=== PATIENT | male | born 1945 | race Caucasian/White ===

== ENCOUNTER 2017-06-06 13:15 | Emergency (ER) | payer MEDICARE, SELFPAY ==
[2017-06-06 13:16] VITALS: BP 118/57; PULSE 81; RESP 79; TEMP 36.4; O2SAT 97; BMI 27.5
--- NOTE | 2017-06-06 13:23 | EKG12_ITS ---
Test Reason : SYNCOPE Blood Pressure : / mmHG Vent. Rate : 076 BPM Atrial Rate : 076 BPM P-R Int : 168 ms QRS Dur : 088 ms QT Int : 372 ms P-R-T Axes : 011 -03 037 degrees QTc Int : 418 ms Normal sinus rhythm Normal ECG Confirmed by GUERO STOREY, SHANTEL ([id number]), image editor [employer] TR[employer]P ([id number] on 06/13/2017 8:36:14 AM Referred By: KRISTY Confirmed By:SHANTEL JACK MD
[2017-06-06 13:30] VITALS: O2SAT 95
[2017-06-06 13:41] LABS: Absolute Lymphocyte Count 0.82 X10^3/ul (0.83-4.51); Absolute Neutrophil Count 8.3 X10^3/uL (2.0-7.7); Basophil# 0.01 X10^3/uL; Basophil% 0.1 % (0-1); Eosinophil# 0.16 X10^3/uL; Eosinophils% 1.6 % (0-5); Hematocrit 40.4 % (40-54); Lymphocyte # 0.82 X10^3/ul (4.0); Lymphocyte % 8.2 % (19-41); Mean Corp Hgb Conc 34.7 g/gl (32-36); Mean Corpuscular Hgb 30.9 pg (27.0-32.0); Mean Corpuscular Volume 89.2 fL (80-94); Monocyte# 0.72 X10^3/uL; Monocyte% 7.2 % (0-10); Neutrophil # 8.25 X10^3/uL (2.7-7.7); Neutrophil % 82.8 % (47-70); Platelet Count 301 K/mm3 (150-450); RBC Distribution Width CV 12.6 % (11.6-14.6); RBC Distribution Width SD 40.5 fl (35.1-43.9); Red Blood Count 4.53 M/mm3 (4.6-6.2)
[2017-06-06 13:42] LABS: POSITIVE COUNT NO; POSITIVE DIFFERENTIAL NO; POSITIVE MORPHOLOGY NO
[2017-06-06 13:59] LABS: Anion Gap 8 (5-15); BUN 25 mg/dL (7-18); BUN/Creat Ratio 21.6 RATIO (10-20); Calcium,Total 8.9 mg/dL (8.5-10.1); Chloride 104 mmol/L (98-107); Creatinine, Serum 1.16 mg/dL (0.70-1.30); EST Glomerular Filtration Rate 66 mL/min (>60); Est Glom Filt Rate - Afr Amer 79 mL/min (>60); Estimated Creatinine Clearance 58.56 ml/min; Glucose 209 mg/dL (70-110); Potassium 4.7 mmol/L (3.5-5.1); Sodium Level 139 mmol/L (136-145)
[2017-06-06 14:15] VITALS: BP 123/66; PULSE 75; RESP 16; O2SAT 98
[2017-06-06 14:52] LABS: Bedside Glucose 196 mg/dL (70-110)
[2017-06-06 15:00] VITALS: BP 119/56; PULSE 93; RESP 18; O2SAT 100
--- NOTE | 2017-06-06 15:28 | ED.VISSUMM ---
- ER Visit Summary Date of Service: 06/06/17 Chief Complaint: Syncopal episode ?2 History of Present Illness: The patient is a 71 M who states he awoke this morning with mild gastric discomfort, which is not abnormal for him. This was associate with nausea. He ate breakfast and felt better. He then went shopping with his . He has several episodes where he felt nauseous and may be slightly warm. He had no other complaints. He apparently ate and felt better. was driving when he had 2 separate syncopal episodes. The single episodes were preceded by a sensation of nauseousness, warmth and noted pallor and he was diaphoretic. He states his vision became tunneled and then black. There was no seizure activity. There is no incontinence of urine or stool. He denies any chest pain or shortness of breath. He denies hematemesis, melena hematochezia in the past week. He denies any leg pain, swelling discoloration. Past history of type 2 diabetes, hypertension and coronary disease. He has 2 stents that were placed by Dr. Mac. Physical Examination: Vital signs are unremarkable. Head is atraumatic normocephalic. Pupils are equal round reactive. Extraocular muscles are intact. TMs are pearly white with landmarks noted. Nares patent with no drainage. Posterior pharynx without erythema or exudate. Uvula is midline. There is no dysphonia or dysphasia. Trachea is midline. There is no stridor with auscultation of the neck. Heart is regular without murmur, gallop or rub. S1 and S2 are normal. Lungs are clear to auscultation with good movement of air bilaterally. Abdomen is soft nontender with no palpable subtle mass or abdominal bruit. Bowel sounds are present normal. There is no asymmetry, swelling, discoloration, leg vein distention, palpable cords or tenderness along the distribution of the deep venous system. Patient is alert and oriented ?3. Motor is 5 over 5. Sensory is intact. DTRs are symmetric with no clonus or Babinski sign. Cranial 2 through 12 are intact. Cerebellar testing is normal. Test Results: Is normal with a rate of 76. CBC is unremarkable. BMP is marked for glucose of 209. Emergency Department Course and Treatment: Placed on a monitor to evaluate for dysrhythmia. During his 2.25 hours today he has had no dysrhythmia or ectopy. CBC was obtained to assess for anemia. BMP to assess for an elevated BUN/creatinine ratio which may signify a GI bleed. Treatment Plan: Follow-up with Dr. Copeland his PCP Disposition: Discharge to home Impression: Vasovagal syncopal episode History coronary disease Hyperglycemia type II diabetic History of hypertension This note was generated with [employer] dictation software. It may contain incorrect words, spelling, and punctuation that were not noted in review of the chart prior to signing ED Disposition - Plan for ED Patient: Disposition: Home or Assisted Living Chief Complaint: Syncope Instructions: ED Syncope Vasovagal Referrals: Christos Copeland MD [Primary Care Provider] - 3-5 Days
--- NOTE | 2017-06-06 15:34 | ED.DCSUM_ITS ---
- ER Visit Summary Date of Service: 06/06/17 Chief Complaint: Syncopal episode ?2 History of Present Illness: The patient is a 71 M who states he awoke this morning with mild gastric discomfort, which is not abnormal for him. This was associate with nausea. He ate breakfast and felt better. He then went shopping with his . He has several episodes where he felt nauseous and may be slightly warm. He had no other complaints. He apparently ate and felt better. was driving when he had 2 separate syncopal episodes. The single episodes were preceded by a sensation of nauseousness, warmth and noted pallor and he was diaphoretic. He states his vision became tunneled and then black. There was no seizure activity. There is no incontinence of urine or stool. He denies any chest pain or shortness of breath. He denies hematemesis , melena hematochezia in the past week. He denies any leg pain, swelling discoloration. Past history of type 2 diabetes, hypertension and coronary disease. He has 2 stents that were placed by Dr. Mac. Physical Examination: Vital signs are unremarkable. Head is atraumatic normocephalic. Pupils are equal round reactive. Extraocular muscles are intact. TMs are pearly white with landmarks noted. Nares patent with no drainage. Posterior pharynx without erythema or exudate. Uvula is midline. There is no dysphonia or dysphasia. Trachea is midline. There is no stridor with auscultation of the neck. Heart is regular without murmur, gallop or rub. S1 and S2 are normal. Lungs are clear to auscultation with good movement of air bilaterally. Abdomen is soft nontender with no palpable subtle mass or abdominal bruit. Bowel sounds are present normal. There is no asymmetry, swelling, discoloration, leg vein distention, palpable cords or tenderness along the distribution of the deep venous system. Patient is alert and oriented ?3. Motor is 5 over 5. Sensory is intact. DTRs are symmetric with no clonus or Babinski sign. Cranial 2 through 12 are intact. Cerebellar testing is normal. Test Results: Is normal with a rate of 76. CBC is unremarkable. BMP is marked for glucose of 209. Emergency Department Course and Treatment: Placed on a monitor to evaluate for dysrhythmia. During his 2.25 hours today he has had no dysrhythmia or ectopy. CBC was obtained to assess for anemia. BMP to assess for an elevated BUN/ creatinine ratio which may signify a GI bleed. Treatment Plan: Follow-up with Dr. Copeland his PCP Disposition: Discharge to home Impression: Vasovagal syncopal episode History coronary disease Hyperglycemia type II diabetic History of hypertension This note was generated with [employer] dictation software. It may contain incorrect words, spelling, and punctuation that were not noted in review of the chart prior to signing ED Disposition - Plan for ED Patient: Disposition: Home or Assisted Living Chief Complaint: Syncope Instructions: ED Syncope Vasovagal Referrals: Christos Copeland MD [Primary Care Provider] - 3-5 Days
[2017-06-06 15:42] VITALS: BP 132/64; PULSE 75; RESP 14; O2SAT 97
== END 2017-06-06 15:50 | disposition home or self-care (01) ==
PROVIDERS: Emergency Provider Emergency Medicine; Family Provider Family Medicine; PCP Family Medicine
DX: R55 Syncope and collapse (principal); I25.10 Atherosclerotic heart disease of native coronary artery without angina pectoris; E11.65 Type 2 diabetes mellitus with hyperglycemia; I10 Essential (primary) hypertension; K21.9 Gastro-esophageal reflux disease without esophagitis; Z79.82 Long term (current) use of aspirin; Z95.5 Presence of coronary angioplasty implant and graft; Z79.84 Long term (current) use of oral hypoglycemic drugs; Z79.899 Other long term (current) drug therapy
CPT/HCPCS: 80048; 82962; 84484; 85025; 93005; 99284; A4216

== ENCOUNTER → 2017-09-06 12:04 | Outpatient (CLI) | payer MEDICARE, SELFPAY ==
[2017-09-06 13:00] LABS: Hemoglobin A1c 8.8 % (4.2-6.3)
[2017-09-06 13:22] LABS: ALB/GLOB Ratio 1.3 RATIO (0.9-2.4); AST(SGOT) 25 U/L (15-37); Alanine Aminotransfer ALT/SGPT 27 U/L (16-61); Albumin, Serum 4.1 g/dL (3.2-5.0); Alkaline Phosphatase 27 U/L (45-117); Anion Gap 5 (5-15); BUN 21 mg/dL (7-18); BUN/Creat Ratio 21.5 RATIO (10-20); Calcium,Total 9.5 mg/dL (8.5-10.1); Chloride 105 mmol/L (98-107); Creatinine, Serum 0.98 mg/dL (0.70-1.30); EST Glomerular Filtration Rate 80 mL/min (>60); Est Glom Filt Rate - Afr Amer 97 mL/min (>60); Globulin 3.2 g/dL (2.2-4.2); Glucose 128 mg/dL (74-106); Potassium 4.8 mmol/L (3.5-5.1); Protein, Total 7.3 g/dL (6.4-8.2); Sodium Level 138 mmol/L (136-145)
== END ==
PROVIDERS: Family Provider Family Medicine; PCP Family Medicine; Visit Provider Family Medicine
DX: I10 Essential (primary) hypertension (principal); E11.9 Type 2 diabetes mellitus without complications
CPT/HCPCS: 36415; 80053; 83036

== ENCOUNTER 2017-10-20 10:00 | Outpatient (RCR) | payer MEDICARE, SELFPAY ==
--- NOTE | 2017-09-15 12:25 | HP.PTEVAL ---
Patient's Visit Information TULIO CABRERA is a 71 year old M referred to Physical Therapy by Christos Copeland DO with a diagnosis of SCIATICA. Date of Evaluation: 09/15/17 Physical Therapist: Ester Harrington Visit Plan Frequency: 2-3x /Week Duration: 4-6 Weeks Plan: POSTURE CORRECTION/STRENGTHENING, INSTRUCTION IN APPROPRIATE BODY MECHANICS AND ACTIVITY MODIFICATIONS. DLS STARTING WITH A NEUTRAL SPINE PROGRESSING ROM TOLERATED. JAMIR LE ROM, STRETCHING AND STRENGTHENING. HEP INSTRUCTION. - Subjective Subjective: Diagnosis: SCIATICA. 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 Disability: NO. Present symptoms: RIGHT BUTTOCK, HIP, THIGH, LEG AND FOOT PAIN, NUMBNESS AND TINGLING. THE NUMBNESS IS IN HIS FOOT. Present since: APR 2017. Pain Scale: WORST 9/10, LEAST 1/10. Currently: 09/14. Commenced as a result of: NO APPARENT REASON. Symptoms at onset: RIGHT THIGH IN APRIL BUT ABOUT A WEEK AGO WALKING TO NEIGHBOR GOT A WEAKNESS IN HIS RIGHT LEG. RESTED IN RECLINER THEN WORSE WHEN GOT UP. HASN'T LET UP IN RIGHT LE SINCE. Worse: SITTING AND LYING DOWN. Better: PAIN PILLS, TREADMILL. Disturbed sleep: YES. Previous history/Previous treatment: PATIENT REPORTS HE HAD THIS LAST YEAR TOO. TREATED IT WITH LV GARCIA - EVENTUALLY RESOLVED. HISTORY OF CHIROPRACTIC TREATMENTS FOR LOW BACK ABOUT 10 YEARS AGO. SELF TREATS SPINE WITH INVERSION TABLE BUT NOT HELPING THIS EPISODE. INCREASED RIGHT KNEE PAIN AFTER TRYING ONE LEG TRACTION AND STRENGTHENING ON INVERSION TABLE RECENTLY. Coughing/sneezing/straining: YES. Gait: LIMPING ON RIGHT LE BUT IT HELPS TO WALK. Difficulty initiating urinatin: YES - MILD. Accidents: NO. Unexplained weight loss: NO. Imaging: CAT SCAN WITHIN LAST SIX MONTHS FOR STOMACH. NO IMAGING OF LOW BACK OR RIGHT LE. PMH: NIDDM, HTN, HIGH CHOLESTEROL, 2 HEART STENTS 2006. LEFT ANKLE PROBLEMS - WEARS BRACE - CROCHET BEADER PROBLEM. 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 2006 - HISTORY OF RIGHT UE SX'S SIMILAR TO THIS TREATED WITH TRACTION AFTER MAXED OUT ON PAIN PILLS. ALMOST HAD SURGERY. RIGHT UE SX'S REOCCUR SOMETIMES AND HE LOST SOME OF THE FUNCTION IN RIGHT UE. - Objective Sitting Posture/Standing Posture: POOR. SLOUCH IN SITTING AND SWAY BACK IN STANDING. Lordosis: REDUCED. Lateral shift: NO. Relevant shift: N/A. Active Correction of posture: NE. Other Observations: INDEP GAIT INTO PT WITHOUT ANY ASSISTIVE DEVICES AND LIMP ON LEFT (NOT RIGHT) LE AT THIS TIME. PATIENT REPORTS HE LIMPS ON THE RIGHT LE WHEN HIS BACK FLARES UP. Motor deficit: JAMIR LE'S 5/5 WITH MMT'ING EXCEPT RIGHT HIP 4-/5 AND LEFT HIP 4/5. Sensory deficit: NO. FEET NOT THOROUGHLY TESTED. ROM deficit: JAMIR LE TIGHT HS'S AND GASTROC SOLEUS COMPLEX'S. Reflexes: UNABLE TO ELICIT. Dural Signs: POSITIVE JAMIR LE'S RIGHT > LEFT. Lumbar mvmt loss: flex - MOD *. ext - TYREE. R SG - TYREE. L SG - TYREE. RIGHT LBP WITH FLEX TESTING. OTHER MOTIONS ARE VERY TIGHT BUT NOT PAINFUL WITH TESTING. Core strength: POOR. Palpation: NO ACUTE PAIN WITH PALPATION OF LUMBAR, SACRAL, BUTTOCK OR HIP REGIONS. - Goals Goal 1:: DECREASE C/O BACK AND R LE SX'S. Goal Time Frame: 4-6 Weeks Goal 2:: IMPROVE SITTING, LYING BENDING, LIFTING, STANDING, WALKING, ADL AND SLEEP FUNCTION Goal Time Frame: 4-6 Weeks Goal 3:: INSTRUCT IN PROPHYLAXIS Goal Time Frame: 4-6 Weeks - Rehabilitation Potential Rehabilitation Potential: Fair - Anticipated Interventions Patient/Client Instruction: Educate patient on: Condition, Plan of Care, Risk Factors, Benefits of Fitness Program For the Purpose of:: To improve self management Therapeutic Exercise to Include: Strength training, Body mechanics, Postural training, Flexibilty training, Dynamic Lumbar Stabilization For the Purpose of:: To decrease pain, To decrease swelling/inflammation, To improve muscle performance and motor function, To increase tolerance to activity/condition/position, To improve ability of physical actions for home/community/work/leisure Cryotherapy (ice pack, ice massage): Yes Thermo therapy (hot pack): Yes Ultrasound (thermal/non thermal): Yes For the Purpose of:: To decrease pain, To decrease swelling/inflammation, To increase ROM Thank you for the opportunity to evaluate your patient. For Medicare and Medicare HMO plans, please review the plan of care and approve it. It will need to be FAXED BACK to us at [phone] for Medicare purposes. Please let me know if there are questions or concerns regarding this plan of care. Physician Signature: Date:
--- NOTE | 2017-10-20 15:33 | HP.PTDCSUM_ITS ---
HP - PT D/C Summary It has been my pleasure to treat TULIO CABRERA under orders from Christos Copeland DO, for the diagnosis of SCIATICA for a total of 7 visit(s). Discharge Date: Please see the following information for a summary of their discharge status. - Subjective Subjective: STARTED NEW PAIN PILLS YESTERDAY AND THEY ARE HELPING. THEY WERE PRESCRIBED BY DR. COPELAND. PATIENT REPORTS HIS PAIN AND UP AND DOWN. PATIENT REPORTS HE IS CONTINUING THE EX'S BUT HE ISN'T SURE THEY ARE HELPING. STATES HE COULD NOT BEND OVER TO TIE HIS SHOE THIS MORNING AND HE HAD TO USE A VICE EXTRACTOR TENDER RAW STOCK TO PUT HIS SOCK ON. PATIENT REPORTS DR. ANGEL OFFICE IS IN THE PROCESS OF SCHEDULING AN MRI FOR HIM. PATIENT REPORTS HE WOULD PREFER TO KNOW WHAT THE MRI SHOWS AND WHAT HE IS DEALING WITH BEFORE DOING MORE PT. PATIENT REPORTS SOMETIMES HE FEELS HE IS GETTING BETTER AND SOMETIMES IT FEELS JUST BAD BEFORE STARTING PT. PATIENT REPORTS HE THINKS THE US MIGHT HAVE BEEN HELPING. - Pain R hip Pain Intensity (Out of 10): 2 R GROIN Pain Intensity (Out of 10): 0 R THIGH Pain Intensity (Out of 10): 2 TOP OF RIGHT FOOT Pain Intensity (Out of 10): 2 - Overall Improvement % Improvement: 50 - Objective Objective/Function: PATIENTS REPORTS OF PAIN HAVE BEEN UP AND DOWN. MRI APPARENTLY IS PENDING. THERE ARE NO SIGNIFICANT CHANGES WITH TESTING TODAY COMPARED TO INITIAL EVAL BUT I ALSO DID A RICKY TEST AND IT WAS POSITIVE WITH RIGHT ANTERIOR HIP PAIN. UPON EXAM TODAY: PATIENT DEMO'S INDEP TRANSFER SIT TO STAND WITHOUT UE ASSIST. INDEP GAIT INTO PT WITHOUT AD OR LIMP NOTED. Motor deficit: JAMIR LE'S 5/5 WITH MMT'ING EXCEPT RIGHT HIP 4-/5 AND LEFT HIP 4/5. ROM deficit: JAMIR LE TIGHT HS'S AND GASTROC SOLEUS COMPLEX'S. Lumbar mvmt loss : flex - MOD *. ext - TYREE. R SG - TYREE. L SG - TYREE. RIGHT LBP WITH FLEX TESTING. OTHER MOTIONS ARE VERY TIGHT BUT NOT PAINFUL WITH TESTING. Core strength: POOR. Palpation: NO ACUTE PAIN WITH PALPATION OF LUMBAR, SACRAL, BUTTOCK OR HIP REGIONS. LUMBAR OSWESTRY HAS IMPROVED FROM 28 TO 25. - Goals Goal 1:: DECREASE C/O BACK AND R LE SX'S. Goal Progress: Not Progressing Goal 2:: IMPROVE SITTING, LYING BENDING, LIFTING, STANDING, WALKING, ADL AND SLEEP FUNCTION Goal Progress: Not Progressing Goal 3:: INSTRUCT IN PROPHYLAXIS Goal Progress: Not Progressing - Plan Plan: D/C DUE TO PENDING MRI AND PATIENT WANTING TO GET RESULTS BEFORE CONTINUING PT. - D/C Information If there are questions or concerns regarding this patient's physical therapy, please feel free to call me at [phone]. Thank you for the referral of this patient. Sincerely, Ester Napier
== END 2017-10-20 19:00 | disposition home or self-care (01) ==
LOC: PT 10:00
PROVIDERS: Family Provider Family Medicine; PCP Family Medicine; Visit Provider Family Medicine
DX: M54.30 Sciatica, unspecified side (principal)
CPT/HCPCS: 97035; 97110; 97113; 97162; 97164; 97530

== ENCOUNTER → 2017-11-01 16:43 | Outpatient (CLI) | payer MEDICARE, SELFPAY ==
--- NOTE | 2017-11-01 16:46 | MRI_ITS ---
STUDY: MRI LUMBAR SPINE WITHOUT CONTRAST REASON FOR EXAM: Male, 72 years old. Low back pain and right hip radiculopathy TECHNIQUE: Standardized fat and water weighted pulse sequences were obtained in the sagittal and axial planes. COMPARISON: None FINDINGS: T12-L1: Normal endplates. Normal disc height, hydration and morphology. Normal bilateral facet joints. Normal central canal and bilateral lateral recesses. Normal bilateral intervertebral neural foramina. Normal lumbar lordosis. There is no substantial scoliosis. Normal conus medullaris that terminates at the T12-L1 level. L1-2: Bulging annulus and bilateral facet hypertrophy without compressive sequelae. L2-3: Normal endplates. Normal disc height, hydration and morphology. Normal bilateral facet joints. Normal central canal and bilateral lateral recesses. Normal bilateral intervertebral neural foramina. L3-4: Bulging annulus and bilateral facet hypertrophy with moderate right lateral recess stenosis and moderate left and mild right foraminal stenoses. L4-5: Bulging annulus and bilateral facet and ligamentum flavum hypertrophy with mild bilateral lateral recess stenoses and moderate bilateral foraminal stenoses. L5-S1: Bulging annulus and bilateral facet hypertrophy with mild left foraminal stenosis. Normal visualized sacral ala. Normal visualized paraspinous soft tissue structures. Bilateral renal cysts. MRI/Spine Lumbar (Routine) IMPRESSION: Multilevel degenerative disc and facet disease as described. No evidence of randi nerve root impingement. Electronically Signed: Richard Presley MD at 5:18 EDT Tel , Service support ,
== END ==
PROVIDERS: Family Provider Family Medicine; PCP Family Medicine; Visit Provider Family Medicine
DX: M54.16 Radiculopathy, lumbar region (principal); M25.552 Pain in left hip
CPT/HCPCS: 72148

== ENCOUNTER → 2017-11-07 07:13 | Outpatient (CLI) | payer SELFPAY ==
--- NOTE | 2017-11-07 07:27 | MRI_ITS ---
STUDY: MRI RIGHT HIP REASON FOR EXAM: Male, 72 years old. Radiating right hip pain TECHNIQUE: Standardized fat and water weighted pulse sequences were obtained in all 3 orthogonal planes. COMPARISON: None. FINDINGS: There is moderate articular narrowing of the hip joint, with greater than 50% loss of the hyaline cartilage. Normal acetabulum. Normal labrum. Normal femoral head. Normal femoral neck and intratrochanteric region. Normal gluteus minimus, medius and iliopsoas tendons and distal insertions. There is no trochanteric, iliopsoas or iliopectineal bursitis. Normal superior and inferior pubic rami. Normal pubic symphysis. Normal ischial tuberosity. Normal origin of the hamstring tendons. Normal visualized iliac wing, sacroiliac joint, and sacral ala. There is prostatic enlargement with impingement upon the inferior bladder and subtle thickening of the inferior bladder wall. Bilateral hydroceles are noted within the scrotum. MRI/Lower Ext Joint Only (Routine) IMPRESSION: Moderate age consistent right hip arthrosis without evidence of fracture, or AVN. No abnormal signal noted within the visualized pelvis Prostate enlargement impinging upon the inferior bladder with subsequent mild thickening of the inferior bladder wall Bilateral hydroceles Electronically Signed: Hunter Mujica MD at 9:14 EDT , Service support ,
== END ==
PROVIDERS: Family Provider Family Medicine; PCP Family Medicine; Visit Provider Family Medicine
DX: M25.552 Pain in left hip (principal)
CPT/HCPCS: 73721

== ENCOUNTER → 2017-12-12 10:07 | Outpatient (CLI) | payer MEDICARE, SELFPAY ==
--- NOTE | 2017-12-12 10:09 | RAD_ITS ---
STUDY: X-RAY - PELVIS AND RIGHT HIP REASON FOR EXAM: Right hip pain, no specific injury. TECHNIQUE: Radiological exam, hip, unilateral, with pelvis when performed; 2 or 3 views. COMPARISON: None. FINDINGS: There is mild vascular calcification. There is enthesopathy of the right iliac wing. Normal right superior and inferior pubic rami. Normal right ischial tuberosity. There is mild right hip arthrosis with a small marginal osteophyte of the right femoral head and mild joint space narrowing at the superior medial aspect of the articulation. There is a small cam lesion on the frog-leg view. There are ossifications adjacent to the greater trochanter, likely from enthesopathy. There is also enthesopathy of the lesser trochanter. 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 Enthesopathy. Electronically Signed: Apolinar Mendoza MD at 7:53 EDT Tel , Service support ,
[2017-12-12 12:55] LABS: PSA,Total- Diagnostic 2.22 ng/mL (0.0-4.0)
== END ==
PROVIDERS: Nurse Practitioner Family; Family Provider Family Medicine; PCP Family Medicine; Visit Provider Orthopaedic Surgery
DX: M16.11 Unilateral primary osteoarthritis, right hip (principal); N40.0 Benign prostatic hyperplasia without lower urinary tract symptoms
CPT/HCPCS: 36415; 73502; 84153

== ENCOUNTER → 2018-01-05 12:55 | Outpatient (CLI) | payer MEDICARE, SELFPAY ==
[2018-01-05 14:17] LABS: Hemoglobin A1c 8.8 % (4.2-6.3)
== END ==
PROVIDERS: Family Provider Family Medicine; PCP Family Medicine; Visit Provider Family Medicine
DX: E11.9 Type 2 diabetes mellitus without complications (principal)
CPT/HCPCS: 36415; 83036

== ENCOUNTER 2018-03-04 14:40 | Observation (INO) | payer MEDICARE, SELFPAY ==
[2018-03-04] VITALS (18 sets, daily range): BP systolic 176–243; BP diastolic 85–113; PULSE 66–105; RESP 15–20; TEMP 36.7–37.1; O2SAT 93–98; BMI 29.5; BMI 27.4; BMI 27.5
[2018-03-04 15:06] LABS: Bedside Glucose 262 mg/dL (70-110)
--- NOTE | 2018-03-04 15:18 | EKG12_ITS ---
Test Reason : NEURO Blood Pressure : / mmHG Vent. Rate : 085 BPM Atrial Rate : 085 BPM P-R Int : 174 ms QRS Dur : 090 ms QT Int : 344 ms P-R-T Axes : 038 -12 038 degrees QTc Int : 409 ms Normal sinus rhythm Normal ECG Confirmed by ABE STOREY, KYLE ([id number]), state editor [employer] TR[employer]P ([id number]) on 03/06/2018 10:27:47 AM Referred By: MYRA Confirmed By:KYLE FISH MD
--- NOTE | 2018-03-04 15:18 | CT_ITS ---
STUDY: CT BRAIN WITHOUT CONTRAST REASON FOR EXAM: Male, 72 years old. Altered mental status. RADIATION DOSAGE (If Supplied By Facility): CTDIvol = ( 44.99 ) mGy, DLP = ( 779.24 ) mGycm TECHNIQUE: Transaxial CT imaging of the brain was performed without administration of intravenous contrast material. Individualized dose optimization techniques were used for this CT. COMPARISON: None. FINDINGS: Normal soft tissue structures. Normal calvarium. There is moderate cerebral atrophy with widening of the extra-axial spaces and ventricular dilatation. Normal white matter tracts of the cerebral hemispheres. Normal basal ganglia and thalami. Normal brainstem. Normal cerebellum. There is no intracranial hemorrhage. There are no findings of an acute ischemic infarction. Normal visualized paranasal sinuses. CT/Brain/Head without Contrast IMPRESSION: No acute process. Involutional changes. Electronically Signed: Komal Del Rosario MD at 16:35 EDT Tel , Service support ,
[2018-03-04 15:31] LABS: Absolute Lymphocyte Count 2.25 X10^3/ul (0.83-4.51); Absolute Neutrophil Count 4.7 X10^3/uL (2.0-7.7); Basophil# 0.04 X10^3/uL; Basophil% 0.5 % (0-1); Eosinophil# 0.24 X10^3/uL; Hematocrit 36.4 % (40-54); Hemoglobin 12.6 g/dl (13.0-16.5); Lymphocyte # 2.25 X10^3/ul (4.0); Lymphocyte % 28.2 % (19-41); Mean Corp Hgb Conc 34.6 g/gl (32-36); Mean Corpuscular Hgb 31.2 pg (27.0-32.0); Mean Corpuscular Volume 90.1 fL (80-94); Mean Platelet Vol. 9.6 fl (6.2-12.0); Monocyte# 0.71 X10^3/uL; Monocyte% 8.9 % (0-10); Neutrophil # 4.71 X10^3/uL (2.7-7.7); Neutrophil % 58.9 % (47-70); Platelet Count 357 K/mm3 (150-450); RBC Distribution Width CV 12.4 % (11.6-14.6); RBC Distribution Width SD 40.2 fl (35.1-43.9); Red Blood Count 4.04 M/mm3 (4.6-6.2)
[2018-03-04 15:35] LABS: POSITIVE COUNT NO; POSITIVE DIFFERENTIAL NO; POSITIVE MORPHOLOGY NO
--- NOTE | 2018-03-04 15:35 | RAD_ITS ---
STUDY: X-RAY CHEST REASON FOR EXAM: Male, 72 years old. forgetfulness and altered LOC that started this morning TECHNIQUE: Single frontal view of the chest. COMPARISON: None. FINDINGS: Chronic appearing increased interstitial lung markings. There is no demonstrated pleural abnormality. Normal heart size. Normal mediastinum and isidro. Normal visualized pulmonary arteries. There is atherosclerotic calcification of the aortic arch with tortuosity. There are diffuse degenerative changes of the visualized thoracic spine. There is degenerative osteoarthritis of the bilateral shoulders. There is no demonstrated abnormality of the visualized soft tissue structures of the upper abdomen. RAD/Chest 1 View IMPRESSION: There are no acute findings. Electronically Signed: Keenan Padgett MD at 16:21 EDT , Service support ,
[2018-03-04 15:37] LABS: Prothrombin Time (Protime)PT. 13.1 SECONDS (11.7-14.9)
--- NOTE | 2018-03-04 15:57 | ED.DCSUM_ITS ---
- ER Visit Summary Date of Service: 03/04/18 Chief Complaint: Speech difficulty History of Present Illness: The patient is a 72 M presenting for evaluation secondary to speech difficulty. Patient has an underlying history of diabetes hypertension and high cholesterol. Patient reports that today he had a sudden onset of a feeling of word finding difficulty. 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 This lasted for short amount of time, he states that after he was done giving a sermon he could not even really remember what he had said. The symptoms resolved and then he had a repeat episode again later in the day talking to a neighbor. He states that he does feel that potentially he was speaking nonsensically. He denies any new visual changes numbness or weakness. He reports that he has chronic numbness in his right arm secondary to a pinched nerve in his neck. He is never had any prior similar episodes in the past. Physical Examination: Vital signs are within normal limits, patient is afebrile. General: Patient is well-nourished well-developed and in no acute distress. Head: Normocephalic, atraumatic Eyes: Pupils equal round and reactive bilaterally, extra occular motion intact bialterally ENT: Moist mucous membranes Neck: Supple, no lymphadenopathy, no JVD, no meningismus CVS: Heart regular rate and rhythm, 2 out of 6 systolic murmur noted, rubs or gallops, radial pulses 2+ bilaterally Resp: Respirations nondistressed, lung sounds clear bilaterally Abdomen: Soft, nontender, nondistended, no palpable masses, normal bowel sounds Back: Nontender Extremities: Nontender, atraumatic, active full range of motion, no peripheral edema Skin: warm, no rashes, no petechia Neuro: Alert and oriented x 4, CN 2-12 intact, no lateralizing neurological defecits, NIH stroke scale was 1 for some subjective numbness in the right arm which is old Psyc: Normal affect Test Results: Sinus rhythm of [address] segments normal T waves no evidence of acute ischemia or arrhythmia. CBC unremarkable, chemistry shows hyperglycemia 282, troponin negative. CT brain shows chronic involutional changes chest x-ray is negative per radiology. Emergency Department Course and Treatment: Patient presented for evaluation secondary to a word finding difficulty. I interpret this as a element of expressive aphasia. Patient does have multiple risk factors for stroke so stroke workup was initiated. He does not have an NIH that would be indicative of need for stroke team or TPA as a stroke team was not activated. Workup was negative as noted above. Patient's blood pressure did continue to creep up while he was in the emergency department this was addressed by a dose of labetalol. I believe he requires admission I discussed this with the hospitalist. Disposition: Admission Impression: 1. TIA 2. Hypertension This note was generated with [employer] dictation software. It may contain incorrect words, spelling, and punctuation that were not noted in review of the chart prior to signing ED Disposition - Plan for ED Patient: Chief Complaint: Neuro S/Sx Referrals: Christos Copeland DO [Primary Care Provider] -
[2018-03-04 16:01] LABS: Anion Gap 9 (5-15); BUN 29 mg/dL (7-18); BUN/Creat Ratio 25.9 RATIO (10-20); Chloride 102 mmol/L (98-107); Creatinine, Serum 1.12 mg/dL (0.70-1.30); EST Glomerular Filtration Rate 68 mL/min (>60); Est Glom Filt Rate - Afr Amer 82 mL/min (>60); Estimated Creatinine Clearance 59.75 ml/min; Glucose 282 mg/dL (74-106); Potassium 4.7 mmol/L (3.5-5.1); Sodium Level 135 mmol/L (136-145)
--- NOTE | 2018-03-04 17:07 | HP.PCM_ITS ---
Problem List (1) Expressive aphasia Status: Acute History of Present Illness Date of Admission: 03/04/18 Chief Complaint: expressive aphasia The patient is a 72 year old M with a PMH of HTN, hyperlipidemia and CAD s'/p stents. Was admitted to the ED on 03/04/2018 with a complaint of 2 episodes of expressive aphasia. He was at [employer] today, and at around noon, noticed that he had temporary difficulty in remembering what he was saying and went blank. He was subsequently able to remember what he was saying and get a speech back. He has not had such episodes before. Patient states his been having problems with the control of his blood pressure was due to follow-up with his PCP and this incident happened. He denied any headache, blurred vision, weakness in any extremity but admitted to mild tingling in the right arm. He denied any chest pain, dizziness, lightheadedness, abdominal pain, diarrhea or vomiting. In the ED, blood pressure was 243/103, but vitals were otherwise within normal limits. He was saturating 96% on 2 L of oxygen. Chemistry showed sodium of 135 and CBC was unremarkable. Chest x-ray showed no acute cardia pulmonary process and CT of the head showed no acute process and only involutional changes. He has been admitted to manage for hypertensive emergency and TIA. [] Past Medical History Past Medical History (Chronic Problems): Chronic Problems (Last Reviewed 12/27/17 @ 09:29 by Rosie Mack) Osteoarthritis of right hip (Chronic) History of esophageal stricture (Chronic) Arthritis (Chronic) High cholesterol (Chronic) Diabetes (Chronic) Hypertension (Chronic) Medical History: Medical History (Last Reviewed 12/27/17 @ 09:29 by Rosie Mack) Arthritis (Chronic) M19.90 High cholesterol (Chronic) E78.00 Diabetes (Chronic) E11.9 Hypertension (Chronic) I10 Allergies tetanus and diphtheria toxoids Adverse Reaction (Verified 03/04/18 14:49) Upset Stomach Home Medications: Ambulatory Orders Medication Instructions Recorded Aspirin [Aspirin EC] 81 mg PO DAILY 06/06/17 Glucosamine/D3/Boswellia Janice 1 ea PO BID 06/06/17 [Glucosamine Daily Complex Tab] Magnesium Oxide [Magnesium] 250 mg PO DAILY 06/06/17 Multivitamin [Multiple Vitamins] 1 tab DAILY 06/06/17 Omeprazole 20 mg PO DAILY 06/06/17 glipizide 5 mg tablet 5 mg PO BID #180 tab 09/06/17 metformin 1,000 mg tablet 1,000 mg PO BID #180 tab 09/06/17 olmesartan 40 mg tablet 40 mg PO QDAY #90 tab 09/06/17 metoprolol tartrate 50 mg tablet 50 mg PO BID tab 11/10/17 simvastatin 20 mg tablet 20 mg PO QPM #90 tab 02/19/18 traMADol [Ultram] 50 mg PO Q4H PRN 03/04/18 Surgical History: Surgical History (Last Reviewed 12/27/17 @ 09:29 by Rosie Mack) History of heart artery stent Z95.5 2007 History of hernia repair Z98.890, Z87.19 1966 Surgical History: - - stents x 2 Psychiatric History: No pertinent psych hx Lives: With Family Smoking Status: Never smoker Alcohol: None - *Family History Maternal Family History: Family History (Last Reviewed 12/27/17 @ 09:29 by Rosie Mack) Mother Hypertension Father Myocardial infarction Pancreatic cancer Brother Pancreatic cancer Brother Liver cancer Brother Non-Hodgkin lymphoma Review of Systems Constitutional: Denies: Chills, Fever, Malaise, Weakness, Weight Change Eyes: Denies: Blurred vision, Double vision, Vision Change HEENT: Denies: Head Aches, Sinus Congestion, Sinus Drainage Cardiovascular: Denies: Chest Pain, Chest Tightness, Edema, Heaviness, Light Headedness, Orthopnea, Palpitations, Paroxysmal Noc. Dyspnea, Syncope Respiratory: Denies: Cough, Shortness of Breath, Shortness of breath at rest, Shortness of breath upon exertion, Sputum production Gastrointestinal: Denies: Abdominal Pain, Nausea, Vomiting Genitourinary: Denies: Dysuria Musculoskeletal: Denies: Joint Pain, Joint Tenderness Skin: Denies: Rash, Wounds Neurological: Reports: Change in Speech, Confusion, Tingling. Denies: Balance problems, Blurred vision, Double vision, Slurred speech, Difficulty swallowing, Focal weakness, Headaches, Incoordination, Numbness, Tremor, Seizures Psychiatric: Denies: Anxiety, Depression, Homicidal Ideations, Suicidal Ideations VTE Information - Inpt Only VTE Present on Admission: No VTE Pharm Prophylaxis ordered?: Yes Patient Problems: Active and Suspected Problems (Last Reviewed 12/27/17 @ 09:29 by Rosie Mack) Expressive aphasia (Acute) - Physical Exam General: Alert, Oriented x3, Cooperative, No apparent distress HEENT: Atraumatic, PERRLA, EOMI, Normocephalic Oral: Moist Mucosa Neck: Supple, No JVD, Negative Carotid Bruits Lungs: Clear to auscultation, Normal air movement, No rhonchi, No wheeze, No rales Cardiovascular: Regular rate, Regular Rhythm, Normal S1, Normal S2, No murmurs Abdomen: Bowel Sounds Present, Soft, Non Tender, Non-Distended, No Hepato- splenomegaly Extremities: No clubbing, No cyanosis, No edema, Capillary Refill Less than 3 Seconds Skin: No rashes, No breakdown Musculoskeletal: No Tenderness to Palpation of Joints or Extremities Lymphatic: No Cervical, Supraclavicular, or Inguinal Adenopathy Neurological: Cranial nerves II-XII grossly intact, Neuro grossly intact, Motor Exam 5/5 strength throughout, - - NIHSS- 0 Psych/Mental Status: Normal Affect, Appropriate, Alert and oriented to time, place, person, mood and affect Vital Signs Temp Pulse Resp BP Pulse Ox 98.8 F 80 17 193/113 H 96 03/04/18 14:40 03/04/18 17:00 03/04/18 17:00 03/04/18 17:00 03/04/18 17:00 Oxygen Flow Rate (L/min) 4 Oxygen Delivery Method Nasal Cannula Weight: 205 lb 7.533 oz Body Mass Index (BMI) 29.5 Finger Stick Blood Glucose 262 Laboratory Tests Past 24 Hrs 03/04/18 03/04/18 03/04/18 15:20 15:20 15:20 WBC 8.0 RBC 4.04 L Hgb 12.6 L Hct 36.4 L MCV 90.1 MCH 31.2 MCHC 34.6 RDW 12.4 RDW Differential 40.2 Plt Count 357 MPV 9.6 Immature Gran % (Auto) 0.500 Neut % (Auto) 58.9 Lymph % (Auto) 28.2 [place] % (Auto) 8.9 Eos % (Auto) 3.0 Baso % (Auto) 0.5 Absolute Neuts (auto) 4.7 Absolute Lymphs (auto) 2.25 Total Counted Not Reportable PT 13.1 INR 1.0 APTT 28.0 Sodium 135 L Potassium 4.7 Chloride 102 Carbon Dioxide 24.0 Anion Gap 9 BUN 29 H Creatinine 1.12 Estim Creat Clear Calc 59.75 Est GFR (MDRD) Af Amer 82 Est GFR (MDRD) Non-Af 68 BUN/Creatinine Ratio 25.9 H Glucose 282 H Calcium 9.0 Troponin I < 0.015 POC Glucose 03/04/18 14:43 POC Glucose 262 H Diagnostic Data Brain CT 03/04/18 15:18 IMPRESSION: No acute process. Involutional changes. Electronically Signed: Komal Dle Rosario MD at 16:35 EDT Tel , Service support , Chest X-Ray 03/04/18 15:35 IMPRESSION: There are no acute findings. Electronically Signed: Keenan Padgett MD at 16:21 EDT , Service support , Assessment/Plan All Active Problems (Last Reviewed 12/27/17 @ 09:29 by Rosie Mack) Expressive aphasia (Acute) 72 y/o male presenting with a complaint expressive aphasia and temporary loss of memory 1. TIA * NIHSS score is 0. Has not had such incidents before in the past. * has risk factors of CAD, HTN and diabetes mellitus. * CT head was negative for any intracranial process * CXR showed no acute cardiopulmonary process * admit to PCU with telemetry * passed dysphagia screen in ED * Brain MRI tomorrow * 2D echo * neurology consult. * On aspirin. We will continue * 2. Hypertensive emergency * BP was in 240s systolic on admission. received one dose of labetalol * says he has been compliant with his meds, but BP has been difficult to control * will give one dose of PO clonidine 0.3mg once * On olmesartan and metoprolol. Increase metoprolol to 100 mg twice daily from 50 by gram twice daily * adjust meds as needed 3. Hyperlipidemia: on statin 4. Diabetes mellitus: on glipizide and metformin. Accuchecks ACHS. ISS 5. Chronic pain due to arthritis: on tramadol DVT prophylaxis: heparin CODE STATUS: Full code. * Patient and son counseled extensively about different types of CODE STATUS including full code, DNR CCA and DNR CCA. Patient elects to be full code. However he wouldnt want to be kept on life prolonging treatment for long. Patient counselled to pass on his wishes to his healthcare POA so they would know what he wants. Total face to face time -17 mins. Code Visit OBSV E&M: 93526 Initial observation care L3 Procedures: 15579 Advncd Care Plan 30 Min
[2018-03-04] MEDS: Labetalol 20 MG/4 ML Vial IV (17:12)
--- NOTE | 2018-03-04 17:36 | ED.RN ---
DR. FROST INFORMED OF PT BP POST LABETALOL. BP 188/90. NO NEW ORDERS AT THIS TIME. WILL CONTINUE TO MONITOR PT BP AND HR. PT ASYMPTOMATIC.
[2018-03-04] MEDS: Insulin Lispro 100 UNIT/ML INSULN.PEN SQ ×2 (18:34→21:53)
[2018-03-04 18:36] LABS: Bedside Glucose 179 mg/dL (70-110)
[2018-03-04] MEDS: Clonidine HCl 0.1 MG, Clonidine HCl 0.2 MG 0.3 MG PO (21:54)
[2018-03-04] MEDS: Metoprolol Tartrate 100 MG Tablet PO (21:55)
[2018-03-04] MEDS: Atorvastatin Calcium 10 MG Tablet PO (21:56)
[2018-03-04 22:05] LABS: Bedside Glucose 287 mg/dL (70-110)
[2018-03-05] VITALS (7 sets, daily range): BP systolic 128–133; BP diastolic 67–77; PULSE 63–71; RESP 16–18; TEMP 36.4–36.7; O2SAT 94–95; BMI 27.4
[2018-03-05] MEDS: Sodium Chloride 0.65% 1 SPRAY SPRAY.BTL 2 SPRAY NASAL (02:43)
[2018-03-05 05:55] LABS: Absolute Lymphocyte Count 1.59 X10^3/ul (0.83-4.51); Absolute Neutrophil Count 3.9 X10^3/uL (2.0-7.7); Basophil# 0.03 X10^3/uL; Basophil% 0.5 % (0-1); Eosinophil# 0.34 X10^3/uL; Eosinophils% 5.3 % (0-5); Hematocrit 32.3 % (40-54); Hemoglobin 11.1 g/dl (13.0-16.5); Lymphocyte # 1.59 X10^3/ul (4.0); Lymphocyte % 24.7 % (19-41); Mean Corp Hgb Conc 34.4 g/gl (32-36); Mean Corpuscular Hgb 31.3 pg (27.0-32.0); Mean Platelet Vol. 9.1 fl (6.2-12.0); Monocyte# 0.59 X10^3/uL; Monocyte% 9.1 % (0-10); Neutrophil # 3.88 X10^3/uL (2.7-7.7); Neutrophil % 60.1 % (47-70); Platelet Count 305 K/mm3 (150-450); RBC Distribution Width CV 12.5 % (11.6-14.6); RBC Distribution Width SD 40.1 fl (35.1-43.9); Red Blood Count 3.55 M/mm3 (4.6-6.2); White Blood Count 6.5 K/mm3 (4.4-11.0)
[2018-03-05 06:00] LABS: Anion Gap 9 (5-15); BUN 26 mg/dL (7-18); BUN/Creat Ratio 26.1 RATIO (10-20); Calcium,Total 8.6 mg/dL (8.5-10.1); Chloride 105 mmol/L (98-107); EST Glomerular Filtration Rate 78 mL/min (>60); Est Glom Filt Rate - Afr Amer 94 mL/min (>60); Estimated Creatinine Clearance 66.92 ml/min; Glucose 158 mg/dL (74-106); Potassium 4.2 mmol/L (3.5-5.1); Sodium Level 139 mmol/L (136-145)
[2018-03-05 06:31] LABS: POSITIVE COUNT NO; POSITIVE DIFFERENTIAL NO; POSITIVE MORPHOLOGY NO
[2018-03-05 07:00] LABS: Bedside Glucose 162 mg/dL (70-110)
--- NOTE | 2018-03-05 08:00 | MRI_ITS ---
STUDY: MRI BRAIN WITHOUT CONTRAST REASON FOR EXAM: Male, 72 years old. APHASIA -- 2 episodes of aphasia 03/04/18, no paralysis or vision, no hx of stroke. TECHNIQUE: Standardized multiplanar fat and water weighted pulse sequences were obtained. # of Images: 286 COMPARISON: 03/04/2018 CT of the head FINDINGS: There is mild cerebral atrophy with widening of the extra-axial spaces and ventricular dilatation. There are a limited number of small white matter hyperintensities, distributed throughout the deep white matter tracts of the cerebral hemispheres, consistent with mild chronic white matter ischemic changes. There is minimal right parietal cortical encephalomalacia and gliosis, suggestive of prior infarct. Normal bilateral basal ganglia. Normal thalami. There is no extra-axial fluid accumulation. Normal flow voids within the major intracranial circulation suggesting patency by spin echo criteria. Normal sella turcica, pituitary gland, infundibular stalk, optic chiasm and hypothalamus. Normal tectal plate and pineal gland. Normal midbrain, shona and medulla. Normal cerebellum. Normal basal cisterns. Normal bilateral temporal bones. Normal bilateral internal auditory canals. MRI/Brain without Contrast IMPRESSION: No acute intracranial abnormality. Chronic right parietal small infarct. Electronically Signed: Sudhir Wan MD at 13:54 EDT Tel , Service support ,
--- NOTE | 2018-03-05 08:00 | ECHOD_ITS ---
[id number] ECHO^ECHOD^Echo Complete [id number] TAG_START Cardiovascular Services Echocardiogram [facility] [place] [id number] Ordering Physician: Meena Freed TAG_ENDED TAG_START Name: TULIO CABRERA Study Date: 03/05/2018 08:14 AM BP: 128/70 mmHg Patient Location: [facility]^[id number]^1 BSA: 2.0 m2 : 1945 Gender: Male Height: 70 in Age: 72 yrs Weight: 189 lb History: HLD, DM, HTN TAG_ENDED Reason For Study: Emboli Procedure This was a 2D Doppler, Color Flow transthoracic echocardiogram. Exam performed portable in patient room. Left Ventricle Mild concentric left ventricular hypertrophy. The estimated ejection fraction is 65 %. Stage 1 diastolic dysfunction. No regional wall motion abnormalities noted. TAG_START I Segments Size 1-2 small X - Cannot 1 - Normal 2 - 3 - Akinetic 4 - Dyskinetic3-5 moderate Interpret Hypokinetic 6-14 large 5 - Aneurysmal 15-16 diffuse TAG_ENDED Right Ventricle Normal size and thickness. Normal systolic function. Atria The left atrium is mildly enlarged. Normal right atrium. Normal atrial septum. Bubble contrast study negative for right to left interatrial shunt. Mitral Valve Mild diffuse mitral valve thickening. Trivial mitral valve insufficiency. Tricuspid Valve Normal tricuspid valve. Unable to estimate RV systolic pressure due to inadequate jet, pulmonary artery pressure probably normal. Aortic Valve Trisinus/trileaflet aortic valve. Mild diffuse aortic valve thickening. Pulmonic Valve Normal pulmonic valve. Trivial pulmonic valve insufficiency. Great Vessels Normal aortic root. Normal arch. Normal inferior vena cava. Inferior vena cava collapse with sniff. Pericardium/Pleural No pericardial effusion. Medication Performed a rapid injection of agitated mix of 9 cc saline and 1cc air to assess for atrial septal defect. MMode/2D Measurements & Calculations LVIDd: 4.7 cm IVSd: 1.6 cm Ao root diam: 3.7 cm LVIDs: 3.0 cm LVPWd: 1.3 cm RVDd: 3.6 cm FS: 35.6 % LAV(MOD-bp): 70.2 ml LVAd ap4: 35.5 cm2 SV(MOD-sp4): 71.0 ml LAV(MOD-bp) Indexed: 34.5 ml/m2 EDV(MOD-sp4): 119.9 ml LAV(MOD-sp2): 68.1 ml EDV(sp4-el): 123.5 ml LAV(MOD-sp4): 66.5 ml LVAs ap4: 20.6 cm2 ESV(MOD-sp4): 48.9 ml ESV(sp4-el): 48.9 ml EF(MOD-sp4): 59.2 % EF(sp4-el): 60.4 % SV(sp4-el): 74.7 ml LA A4 area: 21.5 cm2 LA dimension(2D): 4.0 cm RA A4 area: 15.2 cm2 Doppler Measurements & Calculations MV E max gigi: 52.5 cm/sec Lat Peak E' Gigi: 7.0 cm/sec Med Peak E' Gigi: 5.8 cm/sec MV A max gigi: 77.5 cm/sec E/E' lat: 7.5 E/E' med: 9.0 MV E/A: 0.68 Ao V2 max: 122.9 cm/sec LV V1 max: 92.4 cm/sec PA V2 max: 148.1 cm/sec Ao max P.0 mmHg LV V1 max P.4 mmHg Ao V2 mean: 93.1 cm/sec LV V1 mean P.0 mmHg Ao mean P.7 mmHg LV V1 mean: 68.1 cm/sec Ao V2 VTI: 30.3 cm LV V1 VTI: 23.8 cm PI end-d gigi: 100.3 cm/sec Interpretation Summary Mild concentric left ventricular hypertrophy. The estimated ejection fraction is 65 %. Stage 1 diastolic dysfunction. Trivial mitral valve insufficiency. Bubble contrast study negative for right to left interatrial shunt. Unable to estimate RV systolic pressure due to inadequate jet, pulmonary artery pressure probably normal. There is no comparison study available. TAG_START TAG_ENDED Ordering Physician: Meena Freed Referring Physician: Christos Copeland Performed By: Latha Nur RDCS, RVT
--- NOTE | 2018-03-05 08:00 | MRI_ITS ---
STUDY: MRA NECK WITH AND WITHOUT CONTRAST REASON FOR EXAM: Male, 72 years old. APHASIA -- 2 episodes of aphasia 03/04/18, no paralysis or vision, no hx of stroke. TECHNIQUE: 3-D [id number] (TOF) imaging was performed in an 1.5 T MRI scanner. 9 ml of Gadavist was administered for the contrast enhanced images. COMPARISON: None. FINDINGS: RIGHT CAROTID ARTERIES: Normal right common carotid artery (CCA). There is mild atherosclerotic plaque formation with minimal narrowing of the right carotid bulb. There is mild atherosclerotic plaque formation of the origin of the right internal carotid artery with less than 50% cross sectional diameter stenosis. Normal visualized cervical portion of the right internal carotid artery. Normal origin of the right external carotid artery (ECA). LEFT CAROTID ARTERIES: Normal left common carotid artery (CCA). There is mild atherosclerotic plaque formation with minimal narrowing of the left carotid bulb. There is mild atherosclerotic plaque formation of the origin of the left internal carotid artery with less than 50% cross sectional diameter stenosis. Normal visualized cervical portion of the left internal carotid artery. Normal origin of the left external carotid artery (ECA). VERTEBRAL ARTERIES: There is antegrade flow within the bilateral vertebral arteries with a small right vertebral artery, and a dominant left vertebral artery. MRI/MRA Neck WITH and W/O Contrast IMPRESSION: Atherosclerotic plaque with less than 50% stenosis at the bifurcations. Electronically Signed: Sudhir Wan MD at 15:08 EDT Tel , Service support ,
--- NOTE | 2018-03-05 08:00 | MRI_ITS ---
STUDY: MRA OF THE HEAD WITHOUT CONTRAST REASON FOR EXAM: Male, 72 years old. APHASIA -- 2 episodes of aphasia 03/04/18, no paralysis or vision, no hx of stroke. TECHNIQUE: 3-D cjok-uz-npaixk (TOF) imaging was performed with MIPs. The study was performed unenhanced. COMPARISON: None. FINDINGS: Normal bilateral petrous carotid arteries. Normal right cavernous carotid artery with a normal supraclinoid bifurcation. Normal left cavernous carotid artery with a normal supraclinoid bifurcation. Normal right A1 segments of the anterior cerebral artery. Normal left A1 segments of the anterior cerebral artery. Normal intact anterior communicating artery (ACOM). Normal bilateral A2 segments of the anterior cerebral arteries. Normal right M1 and M2 segments of the middle cerebral arteries, with a normal M1 bifurcation. Normal left M1 and M2 segments of the middle cerebral arteries, with a normal M1 bifurcation. Normal right posterior communicating artery (PCOM). Normal left posterior communicating artery (PCOM). Normal bilateral vertebral arteries. Normal basilar artery with a normal basilar bifurcation. The visualized bilateral superior cerebellar (SCA) arteries are normal. Normal bilateral P1, P2 and visualized P3 segments of the posterior cerebral arteries. There is no demonstrated aneurysm of the [place]. There is no major vessel occlusion or hemodynamically significant stenosis. There is no demonstrated abnormality of the visualized brain. MRI/MRA Head ONLY without Contrast IMPRESSION: Normal MRA of the head Electronically Signed: Sudhir Wan MD at 13:55 EDT Tel , Service support ,
[2018-03-05] MEDS: Aspirin E.C. 81 MG Tablet PO (08:10)
[2018-03-05] MEDS: Multivitamins,Therapeutic Tablet 1 TABLET PO (08:10)
[2018-03-05] MEDS: glipiZIDE 5 MG Tablet PO (08:10)
[2018-03-05] MEDS: Insulin Lispro 100 UNIT/ML INSULN.PEN SQ ×2 (08:10→12:23)
[2018-03-05] MEDS: Pantoprazole Sodium 20 MG Tablet PO (09:53)
[2018-03-05] MEDS: Metoprolol Tartrate 100 MG Tablet PO (09:53)
[2018-03-05] MEDS: Losartan Potassium 100 MG Tablet PO (09:53)
[2018-03-05] MEDS: Enoxaparin 40 MG/0.4 ML Syringe SC (09:53)
[2018-03-05] MEDS: Magnesium Oxide 400 MG Tablet PO (09:59)
--- NOTE | 2018-03-05 11:54 | PCM.CONS.GEN ---
Reason for Consult Date of Consultation: 03/05/18 Reason for Consultation: CONFUSION History of Present Illness: The patient is a 72 year old M presented after two spells of confusion associated with high blood pressure which he attributes to poor sleep due to pain issues. reports friends/family did not notice any deficit. per admit h&p:The patient is a 72 year old M with a PMH of HTN, hyperlipidemia and CAD s'/p stents. Was admitted to the ED on 03/04/2018 with a complaint of 2 episodes of expressive aphasia. He was at [employer] today, and at around noon, noticed that he had temporary difficulty in remembering what he was saying and went blank. He was subsequently able to remember what he was saying and get a speech back. He has not had such episodes before. Patient states his been having problems with the control of his blood pressure was due to follow-up with his PCP and this incident happened. He denied any headache, blurred vision, weakness in any extremity but admitted to mild tingling in the right arm. He denied any chest pain, dizziness, lightheadedness, abdominal pain, diarrhea or vomiting. In the ED, blood pressure was 243/103, but vitals were otherwise within normal limits. He was saturating 96% on 2 L of oxygen. Chemistry showed sodium of 135 and CBC was unremarkable. Chest x-ray showed no acute cardia pulmonary process and CT of the head showed no acute process and only involutional changes. He has been admitted to manage for hypertensive emergency and TIA. Past Medical History Past Medical History (Chronic Problems): Chronic Problems (Last Reviewed 03/05/18 @ 11:56 by Manuel Botello MD) Osteoarthritis of right hip (Chronic) History of esophageal stricture (Chronic) Arthritis (Chronic) High cholesterol (Chronic) Diabetes (Chronic) Hypertension (Chronic) Medical History: Medical History (Last Reviewed 03/05/18 @ 11:56 by Manuel Botello MD) Arthritis (Chronic) M19.90 High cholesterol (Chronic) E78.00 Diabetes (Chronic) E11.9 Hypertension (Chronic) I10 Allergies tetanus and diphtheria toxoids Adverse Reaction (Verified 03/04/18 14:49) Upset Stomach Home Medications: Ambulatory Orders Medication Instructions Recorded Aspirin [Aspirin EC] 81 mg PO DAILY 06/06/17 Glucosamine/D3/Boswellia Janice 1 ea PO BID 06/06/17 [Glucosamine Daily Complex Tab] Magnesium Oxide [Magnesium] 250 mg PO DAILY 06/06/17 Multivitamin [Multiple Vitamins] 1 tab DAILY 06/06/17 Omeprazole 20 mg PO DAILY 06/06/17 glipizide 5 mg tablet 5 mg PO BID #180 tab 09/06/17 metformin 1,000 mg tablet 1,000 mg PO BID #180 tab 09/06/17 olmesartan 40 mg tablet 40 mg PO QDAY #90 tab 09/06/17 metoprolol tartrate 50 mg tablet 50 mg PO BID tab 11/10/17 simvastatin 20 mg tablet 20 mg PO QPM #90 tab 02/19/18 traMADol [Ultram] 50 mg PO Q4H PRN 03/04/18 Surgical History: Surgical History (Last Reviewed 03/05/18 @ 11:56 by Manuel Botello MD) History of heart artery stent Z95.5 2007 History of hernia repair Z98.890, Z87.19 1966 Surgical History: - - stents x 2 Psychiatric History: No pertinent psych hx Lives: With Family Smoking Status: Never smoker Tobacco Use: Non-smoker Alcohol: None - *Family History Maternal Family History: Family History (Last Reviewed 03/05/18 @ 11:56 by Manuel Botello MD) Mother Hypertension Father Myocardial infarction Pancreatic cancer Brother Pancreatic cancer Brother Liver cancer Brother Non-Hodgkin lymphoma Review of Systems Constitutional: Denies: Chills, Fever, Weight Change HEENT: Denies: Head Aches, Sinus Congestion, Sinus Drainage Cardiovascular: Denies: Chest Pain, Palpitations Respiratory: Denies: Cough, Shortness of breath at rest, Sputum production Gastrointestinal: Denies: Abdominal Pain, Nausea, Vomiting Genitourinary: Denies: Dysuria Musculoskeletal: Denies: Joint Pain, Joint Tenderness Skin: Denies: Rash, Wounds Neurological: Denies: Numbness, Tingling, Focal weakness Psychiatric: Denies: Anxiety, Depression, Homicidal Ideations, Suicidal Ideations Hematologic/ Lymphatic: Denies: Easy Bruising, Easy Bleeding Patient Problems: Active and Suspected Problems (Last Reviewed 03/05/18 @ 11:56 by Manuel Botello MD) Expressive aphasia (Acute) - Physical Exam General: Alert, Oriented x3, Cooperative HEENT: Atraumatic, PERRLA, EOMI, Normocephalic Neck: Supple, No JVD, Negative Carotid Bruits Lungs: Clear to auscultation, Normal air movement Cardiovascular: Regular rate, No murmurs Abdomen: Bowel Sounds Present, Soft, Non Tender Extremities: No edema, Capillary Refill Less than 3 Seconds Skin: No rashes, No breakdown Musculoskeletal: No Tenderness to Palpation of Joints or Extremities Neurological: Cranial nerves II-XII grossly intact Psych/Mental Status: Normal Affect, Appropriate Vital Signs Temp Pulse Resp BP Pulse Ox 36.4 C L 71 18 133/67 H 94 03/05/18 09:30 03/05/18 09:53 03/05/18 09:30 03/05/18 09:30 03/05/18 09:30 Oxygen Flow Rate (L/min) 2 Oxygen Delivery Method Room Air Weight: 86.818 kg Body Mass Index (BMI) 27.4 Finger Stick Blood Glucose 262 Laboratory Tests Past 24 Hrs 03/04/18 03/04/18 03/04/18 15:20 15:20 15:20 WBC 8.0 RBC 4.04 L Hgb 12.6 L Hct 36.4 L MCV 90.1 MCH 31.2 MCHC 34.6 RDW 12.4 RDW Differential 40.2 Plt Count 357 MPV 9.6 Immature Gran % (Auto) 0.500 Neut % (Auto) 58.9 Lymph % (Auto) 28.2 [place] % (Auto) 8.9 Eos % (Auto) 3.0 Baso % (Auto) 0.5 Absolute Neuts (auto) 4.7 Absolute Lymphs (auto) 2.25 Total Counted Not Reportable PT 13.1 INR 1.0 APTT 28.0 Sodium 135 L Potassium 4.7 Chloride 102 Carbon Dioxide 24.0 Anion Gap 9 BUN 29 H Creatinine 1.12 Estim Creat Clear Calc 59.75 Est GFR (MDRD) Af Amer 82 Est GFR (MDRD) Non-Af 68 BUN/Creatinine Ratio 25.9 H Glucose 282 H Calcium 9.0 Troponin I < 0.015 03/05/18 03/05/18 05:20 05:20 WBC 6.5 RBC 3.55 L Hgb 11.1 L Hct 32.3 L MCV 91.0 MCH 31.3 MCHC 34.4 RDW 12.5 RDW Differential 40.1 Plt Count 305 MPV 9.1 Immature Gran % (Auto) 0.300 Neut % (Auto) 60.1 Lymph % (Auto) 24.7 [place] % (Auto) 9.1 Eos % (Auto) 5.3 H Baso % (Auto) 0.5 Absolute Neuts (auto) 3.9 Absolute Lymphs (auto) 1.59 Total Counted Not Reportable PT INR APTT Sodium 139 Potassium 4.2 Chloride 105 Carbon Dioxide 25.0 Anion Gap 9 BUN 26 H Creatinine 1.00 Estim Creat Clear Calc 66.92 Est GFR (MDRD) Af Amer 94 Est GFR (MDRD) Non-Af 78 BUN/Creatinine Ratio 26.1 H Glucose 158 H Calcium 8.6 Troponin I POC Glucose 03/05/18 03/04/18 03/04/18 06:57 21:36 18:02 POC Glucose 162 H 287 H 179 H 03/04/18 14:43 POC Glucose 262 H Current Home Med List Medication Instructions Recorded Confirmed Type Aspirin [Aspirin EC] 81 mg PO DAILY 06/06/17 03/04/18 History Glucosamine/D3/Boswellia Janice 1 ea PO BID 06/06/17 03/04/18 History [Glucosamine Daily Complex Tab] Magnesium Oxide [Magnesium] 250 mg PO DAILY 06/06/17 03/04/18 History Multivitamin [Multiple Vitamins] 1 tab DAILY 06/06/17 03/04/18 History Omeprazole 20 mg PO DAILY 06/06/17 03/04/18 History glipizide 5 mg tablet 5 mg PO BID #180 tab 09/06/17 03/04/18 Rx metformin 1,000 mg tablet 1,000 mg PO BID #180 tab 09/06/17 03/04/18 Rx olmesartan 40 mg tablet 40 mg PO QDAY #90 tab 09/06/17 03/04/18 Rx metoprolol tartrate 50 mg tablet 50 mg PO BID tab 11/10/17 03/04/18 History simvastatin 20 mg tablet 20 mg PO QPM #90 tab 02/19/18 03/04/18 Rx traMADol [Ultram] 50 mg PO Q4H PRN 03/04/18 03/04/18 History Current Medications Generic Name Dose Route Start Last Admin Trade Name Freq PRN Reason Stop Dose Admin Aspirin 81 mg 03/05/18 08:00 03/05/18 08:10 Ecotrin PO 81 mg DAILY@0800 SHANTELL Administration Atorvastatin Calcium 10 mg 03/04/18 22:00 03/04/18 21:56 Lipitor PO 10 mg QHS SHANTELL Administration Dextrose 0 gm 03/04/18 17:50 D50w Syringe IV X1 PRN Hypoglycemia Protocol Enoxaparin Sodium 40 mg 03/05/18 10:00 03/05/18 09:53 Lovenox SC 40 mg DAILY@1000 [facility] Administration Glipizide 5 mg 03/05/18 08:00 03/05/18 08:10 Glucotrol PO 5 mg BIDCM [facility] Administration Glucagon 1 mg 03/04/18 17:50 IM .X1 PRN Hypoglycemia Insulin Human Lispro 0 unit 03/04/18 22:00 03/05/18 08:10 Humalog Kwikpen (Bkc) SQ 2 u ACHS [facility] Administration Protocol Losartan Potassium 100 mg 03/05/18 10:00 03/05/18 09:53 Cozaar PO 100 mg DAILY [facility] Administration Magnesium Hydroxide 30 ml 03/04/18 17:53 Milk Of Magnesia PO DAILY PRN PRN Constipation Magnesium Oxide 400 mg 03/05/18 10:00 03/05/18 09:59 Mag-Ox 400 PO 400 mg DAILY [facility] Administration Metformin HCl 1,000 mg 03/05/18 08:00 03/05/18 08:11 Glucophage PO Not Given BIDCM [facility] Metoprolol Tartrate 100 mg 03/04/18 22:00 03/05/18 09:53 Lopressor (Beta Clint) PO 100 mg BID [facility] Administration Multivitamins 1 tablet 03/05/18 08:00 03/05/18 08:10 Multivitamin PO 1 tablet DAILY@0800 [facility] Administration Pantoprazole Sodium 20 mg 03/05/18 10:00 03/05/18 09:53 Protonix PO 20 mg DAILY [facility] Administration Sodium Chloride 2 spray 03/05/18 01:56 03/05/18 02:43 [place] Nasal [place] NASAL 2 sprays TID PRN PRN Administration NASAL DRYNESS Tamsulosin HCl 0.4 mg 03/05/18 17:30 Flomax PO DAILY@1730 [facility] Tramadol HCl 50 mg 03/04/18 17:53 Ultram PO Q4H PRN PRN PAIN mri reviewed, no acute, no evidence of pres mra no stensosis Assessment/Plan All Active Problems (Last Reviewed 03/05/18 @ 11:56 by Manuel Botello MD) Expressive aphasia (Acute) confusion, resolved, likely encephalopathy due to a combination of hip pain and analgesics as well as sleep deprivation due to pain. neuro intact rec f/'u as outpt for optimizing rx of pain issues no evidence of primary neurologic injury
[2018-03-05 11:56] LABS: Bedside Glucose 306 mg/dL (70-110)
--- NOTE | 2018-03-05 11:58 | CON.PCM_ITS ---
Reason for Consult Date of Consultation: 03/05/18 Reason for Consultation: CONFUSION History of Present Illness: The patient is a 72 year old M presented after two spells of confusion associated with high blood pressure which he attributes to poor sleep due to pain issues. reports friends/family did not notice any deficit. per admit h&p:The patient is a 72 year old M with a PMH of HTN, hyperlipidemia and CAD s'/p stents. Was admitted to the ED on 03/04/2018 with a complaint of 2 episodes of expressive aphasia. He was at [employer] today, and at around noon, noticed that he had temporary difficulty in remembering what he was saying and went blank. He was subsequently able to remember what he was saying and get a speech back. He has not had such episodes before. Patient states his been having problems with the control of his blood pressure was due to follow-up with his PCP and this incident happened. He denied any headache, blurred vision, weakness in any extremity but admitted to mild tingling in the right arm. He denied any chest pain, dizziness, lightheadedness, abdominal pain, diarrhea or vomiting. In the ED, blood pressure was 243/103, but vitals were otherwise within normal limits. He was saturating 96% on 2 L of oxygen. Chemistry showed sodium of 135 and CBC was unremarkable. Chest x-ray showed no acute cardia pulmonary process and CT of the head showed no acute process and only involutional changes. He has been admitted to manage for hypertensive emergency and TIA. Past Medical History Past Medical History (Chronic Problems): Chronic Problems (Last Reviewed 03/05/18 @ 11:56 by Manuel Botello MD) Osteoarthritis of right hip (Chronic) History of esophageal stricture (Chronic) Arthritis (Chronic) High cholesterol (Chronic) Diabetes (Chronic) Hypertension (Chronic) Medical History: Medical History (Last Reviewed 03/05/18 @ 11:56 by Manuel Botello MD) Arthritis (Chronic) M19.90 High cholesterol (Chronic) E78.00 Diabetes (Chronic) E11.9 Hypertension (Chronic) I10 Allergies tetanus and diphtheria toxoids Adverse Reaction (Verified 03/04/18 14:49) Upset Stomach Home Medications: Ambulatory Orders Medication Instructions Recorded Aspirin [Aspirin EC] 81 mg PO DAILY 06/06/17 Glucosamine/D3/Boswellia Janice 1 ea PO BID 06/06/17 [Glucosamine Daily Complex Tab] Magnesium Oxide [Magnesium] 250 mg PO DAILY 06/06/17 Multivitamin [Multiple Vitamins] 1 tab DAILY 06/06/17 Omeprazole 20 mg PO DAILY 06/06/17 glipizide 5 mg tablet 5 mg PO BID #180 tab 09/06/17 metformin 1,000 mg tablet 1,000 mg PO BID #180 tab 09/06/17 olmesartan 40 mg tablet 40 mg PO QDAY #90 tab 09/06/17 metoprolol tartrate 50 mg tablet 50 mg PO BID tab 11/10/17 simvastatin 20 mg tablet 20 mg PO QPM #90 tab 02/19/18 traMADol [Ultram] 50 mg PO Q4H PRN 03/04/18 Surgical History: Surgical History (Last Reviewed 03/05/18 @ 11:56 by Manuel Botello MD) History of heart artery stent Z95.5 2007 History of hernia repair Z98.890, Z87.19 1966 Surgical History: - - stents x 2 Psychiatric History: No pertinent psych hx Lives: With Family Smoking Status: Never smoker Tobacco Use: Non-smoker Alcohol: None - *Family History Maternal Family History: Family History (Last Reviewed 03/05/18 @ 11:56 by Manuel Botello MD) Mother Hypertension Father Myocardial infarction Pancreatic cancer Brother Pancreatic cancer Brother Liver cancer Brother Non-Hodgkin lymphoma Review of Systems Constitutional: Denies: Chills, Fever, Weight Change HEENT: Denies: Head Aches, Sinus Congestion, Sinus Drainage Cardiovascular: Denies: Chest Pain, Palpitations Respiratory: Denies: Cough, Shortness of breath at rest, Sputum production Gastrointestinal: Denies: Abdominal Pain, Nausea, Vomiting Genitourinary: Denies: Dysuria Musculoskeletal: Denies: Joint Pain, Joint Tenderness Skin: Denies: Rash, Wounds Neurological: Denies: Numbness, Tingling, Focal weakness Psychiatric: Denies: Anxiety, Depression, Homicidal Ideations, Suicidal Ideations Hematologic/ Lymphatic: Denies: Easy Bruising, Easy Bleeding Patient Problems: Active and Suspected Problems (Last Reviewed 03/05/18 @ 11:56 by Manuel Botello MD) Expressive aphasia (Acute) - Physical Exam General: Alert, Oriented x3, Cooperative HEENT: Atraumatic, PERRLA, EOMI, Normocephalic Neck: Supple, No JVD, Negative Carotid Bruits Lungs: Clear to auscultation, Normal air movement Cardiovascular: Regular rate, No murmurs Abdomen: Bowel Sounds Present, Soft, Non Tender Extremities: No edema, Capillary Refill Less than 3 Seconds Skin: No rashes, No breakdown Musculoskeletal: No Tenderness to Palpation of Joints or Extremities Neurological: Cranial nerves II-XII grossly intact Psych/Mental Status: Normal Affect, Appropriate Vital Signs Temp Pulse Resp BP Pulse Ox 36.4 C L 71 18 133/67 H 94 03/05/18 09:30 03/05/18 09:53 03/05/18 09:30 03/05/18 09:30 03/05/18 09:30 Oxygen Flow Rate (L/min) 2 Oxygen Delivery Method Room Air Weight: 86.818 kg Body Mass Index (BMI) 27.4 Finger Stick Blood Glucose 262 Laboratory Tests Past 24 Hrs 03/04/18 03/04/18 03/04/18 15:20 15:20 15:20 WBC 8.0 RBC 4.04 L Hgb 12.6 L Hct 36.4 L MCV 90.1 MCH 31.2 MCHC 34.6 RDW 12.4 RDW Differential 40.2 Plt Count 357 MPV 9.6 Immature Gran % (Auto) 0.500 Neut % (Auto) 58.9 Lymph % (Auto) 28.2 [place] % (Auto) 8.9 Eos % (Auto) 3.0 Baso % (Auto) 0.5 Absolute Neuts (auto) 4.7 Absolute Lymphs (auto) 2.25 Total Counted Not Reportable PT 13.1 INR 1.0 APTT 28.0 Sodium 135 L Potassium 4.7 Chloride 102 Carbon Dioxide 24.0 Anion Gap 9 BUN 29 H Creatinine 1.12 Estim Creat Clear Calc 59.75 Est GFR (MDRD) Af Amer 82 Est GFR (MDRD) Non-Af 68 BUN/Creatinine Ratio 25.9 H Glucose 282 H Calcium 9.0 Troponin I < 0.015 03/05/18 03/05/18 05:20 05:20 WBC 6.5 RBC 3.55 L Hgb 11.1 L Hct 32.3 L MCV 91.0 MCH 31.3 MCHC 34.4 RDW 12.5 RDW Differential 40.1 Plt Count 305 MPV 9.1 Immature Gran % (Auto) 0.300 Neut % (Auto) 60.1 Lymph % (Auto) 24.7 [place] % (Auto) 9.1 Eos % (Auto) 5.3 H Baso % (Auto) 0.5 Absolute Neuts (auto) 3.9 Absolute Lymphs (auto) 1.59 Total Counted Not Reportable PT INR APTT Sodium 139 Potassium 4.2 Chloride 105 Carbon Dioxide 25.0 Anion Gap 9 BUN 26 H Creatinine 1.00 Estim Creat Clear Calc 66.92 Est GFR (MDRD) Af Amer 94 Est GFR (MDRD) Non-Af 78 BUN/Creatinine Ratio 26.1 H Glucose 158 H Calcium 8.6 Troponin I POC Glucose 03/05/18 03/04/18 03/04/18 06:57 21:36 18:02 POC Glucose 162 H 287 H 179 H 03/04/18 14:43 POC Glucose 262 H Current Home Med List Medication Instructions Recorded Confirmed Type Aspirin [Aspirin EC] 81 mg PO DAILY 06/06/17 03/04/18 History Glucosamine/D3/Boswellia Janice 1 ea PO BID 06/06/17 03/04/18 History [Glucosamine Daily Complex Tab] Magnesium Oxide [Magnesium] 250 mg PO DAILY 06/06/17 03/04/18 History Multivitamin [Multiple Vitamins] 1 tab DAILY 06/06/17 03/04/18 History Omeprazole 20 mg PO DAILY 06/06/17 03/04/18 History glipizide 5 mg tablet 5 mg PO BID #180 tab 09/06/17 03/04/18 Rx metformin 1,000 mg tablet 1,000 mg PO BID #180 tab 09/06/17 03/04/18 Rx olmesartan 40 mg tablet 40 mg PO QDAY #90 tab 09/06/17 03/04/18 Rx metoprolol tartrate 50 mg tablet 50 mg PO BID tab 11/10/17 03/04/18 History simvastatin 20 mg tablet 20 mg PO QPM #90 tab 02/19/18 03/04/18 Rx traMADol [Ultram] 50 mg PO Q4H PRN 03/04/18 03/04/18 History Current Medications Generic Name Dose Route Start Last Admin Trade Name Freq PRN Reason Stop Dose Admin Aspirin 81 mg 03/05/18 08:00 03/05/18 08:10 Ecotrin PO 81 mg DAILY@0800 SHANTELL Administration Atorvastatin Calcium 10 mg 03/04/18 22:00 03/04/18 21:56 Lipitor PO 10 mg QHS SHANTELL Administration Dextrose 0 gm 03/04/18 17:50 D50w Syringe IV X1 PRN Hypoglycemia Protocol Enoxaparin Sodium 40 mg 03/05/18 10:00 03/05/18 09:53 Lovenox SC 40 mg DAILY@1000 [facility] Administration Glipizide 5 mg 03/05/18 08:00 03/05/18 08:10 Glucotrol PO 5 mg BIDCM [facility] Administration Glucagon 1 mg 03/04/18 17:50 IM .X1 PRN Hypoglycemia Insulin Human Lispro 0 unit 03/04/18 22:00 03/05/18 08:10 Humalog Kwikpen (Bkc) SQ 2 u ACHS [facility] Administration Protocol Losartan Potassium 100 mg 03/05/18 10:00 03/05/18 09:53 Cozaar PO 100 mg DAILY [facility] Administration Magnesium Hydroxide 30 ml 03/04/18 17:53 Milk Of Magnesia PO DAILY PRN PRN Constipation Magnesium Oxide 400 mg 03/05/18 10:00 03/05/18 09:59 Mag-Ox 400 PO 400 mg DAILY [facility] Administration Metformin HCl 1,000 mg 03/05/18 08:00 03/05/18 08:11 Glucophage PO Not Given BIDCM [facility] Metoprolol Tartrate 100 mg 03/04/18 22:00 03/05/18 09:53 Lopressor (Beta Clint) PO 100 mg BID [facility] Administration Multivitamins 1 tablet 03/05/18 08:00 03/05/18 08:10 Multivitamin PO 1 tablet DAILY@0800 [facility] Administration Pantoprazole Sodium 20 mg 03/05/18 10:00 03/05/18 09:53 Protonix PO 20 mg DAILY [facility] Administration Sodium Chloride 2 spray 03/05/18 01:56 03/05/18 02:43 [place] Nasal [place] NASAL 2 sprays TID PRN PRN Administration NASAL DRYNESS Tamsulosin HCl 0.4 mg 03/05/18 17:30 Flomax PO DAILY@1730 [facility] Tramadol HCl 50 mg 03/04/18 17:53 Ultram PO Q4H PRN PRN PAIN mri reviewed, no acute, no evidence of pres mra no stensosis Assessment/Plan All Active Problems (Last Reviewed 03/05/18 @ 11:56 by Manuel Botello MD) Expressive aphasia (Acute) confusion, resolved, likely encephalopathy due to a combination of hip pain and analgesics as well as sleep deprivation due to pain. neuro intact rec f/'u as outpt for optimizing rx of pain issues no evidence of primary neurologic injury
--- NOTE | 2018-03-05 12:48 | DCINST_ITS ---
- Discharge Diagnoses Current Active Problems: Current Active and Chronic Problems (Last Reviewed 03/05/18 @ 11:56 by Manuel Botello MD) Expressive aphasia (Acute) You will use the following diet at home:: Calorie/Carbohydrate Controlled (specify 1200, 1400, etc) - 1800 kinjal, Cardiac Your food should be the consistency of: Regular Discharge Activity: Return to Normal Activity Weight Bearing Status: Weight bearing as tolerated Call your doctor if you observe: Fever of 101 or Higher, Numbness or Tingling, Shortness of breath, Dizziness, Fainting spells, Chest pain, Increased palpitations (irregular heartbeat), Uncontrolled pain Instructions: Controlling High Blood Pressure, Taking Your Blood Pressure Additional Instructions: Please check your blood pressure twice a day, write down the readings and showed them to your doctor when you see him in a week. Allergies/Adverse Reactions: Allergies tetanus and diphtheria toxoids Adverse Reaction (Verified 03/04/18 14:49) Upset Stomach Medications to take at Discharge Aspirin [Aspirin EC] 81 mg PO DAILY 06/06/17 Glucosamine/D3/Boswellia Janice [Glucosamine Daily Complex Tab] 1 ea PO BID 06/06/17 Magnesium Oxide [Magnesium] 250 mg PO DAILY 06/06/17 Multivitamin [Multiple Vitamins] 1 tab DAILY 06/06/17 Omeprazole 20 mg PO DAILY 06/06/17 glipizide 5 mg tablet 5 mg PO BID #180 tab 09/06/17 metformin 1,000 mg tablet 1,000 mg PO BID #180 tab 09/06/17 olmesartan 40 mg tablet 40 mg PO QDAY #90 tab 09/06/17 traMADol [Ultram] 50 mg PO Q4H PRN 03/04/18 Metoprolol Tartrate [Lopressor (beta mili)] 100 mg PO BID #90 tablet 03/05/18 Simvastatin 40 mg PO QHS #90 tablet 03/05/18 The following prescriptions were given: Simvastatin 40 mg PO QHS #90 tablet Metoprolol Tartrate [Lopressor (beta mili)] 100 mg PO BID #90 tablet Primary Care Physician: Christos Copeland DO [Primary Care Provider] - Please follow up with your Primary Care Physician in: 1 week. Test Results: Test results from this visit will be discussed in further detail at your follow- up appointment, if applicable.
--- NOTE | 2018-03-05 15:14 | PCM.DC.SUM ---
Discharge Date and Diagnosis Date of Admission: 03/04/18 Date of Discharge: 03/05/18 - Primary Discharge Diagnosis #1 transient ischemic attack. #2 hypertensive urgency. - Secondary Discharge Diagnosis Chronic Problems (Last Reviewed 03/05/18 @ 11:56 by Manuel Botello MD) Osteoarthritis of right hip (Chronic) History of esophageal stricture (Chronic) Arthritis (Chronic) High cholesterol (Chronic) Diabetes (Chronic) Hypertension (Chronic) Hospital Course and Treatment Imaging Results: 03/05/18 08:00 Echo Complete [ECHO] Routine Brain without Contrast [MRI] Urgent MRA Head ONLY without Contrast [MRI] Urgent MRA Neck WITH and W/O Contrast [MRI] Urgent Clinical Impression(s) from Imaging Studies Brain CT 03/04/18 15:18 IMPRESSION: No acute process. Involutional changes. Electronically Signed: Komal Del Rosario MD at 16:35 EDT Tel , Service support , Chest X-Ray 03/04/18 15:35 IMPRESSION: There are no acute findings. Electronically Signed: Keenan Padgett MD at 16:21 EDT , Service support , Brain MRI 03/05/18 08:00 IMPRESSION: No acute intracranial abnormality. Chronic right parietal small infarct. Electronically Signed: Sudhir Wan MD at 13:54 EDT Tel , Service support , Head MRA 03/05/18 08:00 IMPRESSION: Normal MRA of the head Electronically Signed: Sudhir Wan MD at 13:55 EDT Tel , Service support , Neck MRA 03/05/18 08:00 IMPRESSION: Atherosclerotic plaque with less than 50% stenosis at the bifurcations. Electronically Signed: Sudhir Wan MD at 15:08 EDT Tel , Service support , Dr. Botello, neurology. Procedures: 2-D Echocardiogram, EKG Summary of Care Provided: Patient seen and examined on the day of discharge and appeared to be stable to be discharged home. He has no more slurred speech and he denied any new symptoms. He was admitted for expressive aphasia as well as highly elevated blood pressure. Upon arrival to ER, his blood pressure was 243/103. He underwent standard stroke workup. He was treated with IV labetalol for hypertensive urgency. CT scan brain showed no acute findings. MRI brain showed no acute abnormality, no acute infarction. MRA of the neck revealed atherosclerotic plaque with less than 50% stenosis at the bifurcation of the carotid arteries. MRA of the head was normal. 2D echocardiogram revealed ejection fraction of 65%, bubble contrast study that was negative for [id number] shunt. Patient was already on aspirin and statins. His antihypertensive medications were adjusted and his blood pressure significantly improved. He had no focal deficit throughout the hospital stay. Acute stroke ruled out. Neurology consult and suggested that his symptoms could be due to encephalopathy secondary to pain medications as well as sleep deprivation. Patient discharged home in a stable medical condition, discharged on aspirin, discharged on simvastatin 40 mg p.o. daily, metoprolol increased to 100 mg p.o. daily, continued on olmesartan 40 mg p.o. daily, recommended to check blood pressure at least twice daily, follow-up with PCP in 1 week. - Physical Exam General: Alert, Oriented x3, Cooperative, No apparent distress HEENT: Atraumatic, PERRLA, EOMI, Normocephalic Oral: Moist Mucosa, No Gingival or Mucosal Lesions/ Ulcerations Neck: Supple, No JVD, Negative Carotid Bruits, Trachea Midline, Thyroid Normal Size and Texture Lungs: Clear to auscultation, No rhonchi, No wheeze, No rales, Diminished Cardiovascular: Regular rate, Regular Rhythm, Normal S1, Normal S2 Abdomen: Bowel Sounds Present, Soft, Non Tender, Non-Distended, No Hepato-splenomegaly Extremities: No clubbing, No cyanosis, No edema Skin: No rashes, No breakdown Neurological: Cranial nerves II-XII grossly intact, Motor Exam 5/5 strength throughout Psych/Mental Status: Normal Affect, Appropriate Vital Signs Temp Pulse Resp BP Pulse Ox 97.6 F L 70 18 133/67 H 94 03/05/18 09:30 03/05/18 11:23 03/05/18 09:30 03/05/18 09:30 03/05/18 09:30 Oxygen Flow Rate (L/min) 2 Oxygen Delivery Method Room Air Weight: 191 lb 6.4 oz Body Mass Index (BMI) 27.4 Finger Stick Blood Glucose 262 Intake and Output for Last 24 Hours 03/03/18 03/04/18 03/05/18 23:59 23:59 23:59 Intake Total 500 / 500 Balance 500 / 500 Laboratory Tests Past 24 Hrs 03/04/18 03/04/18 03/04/18 15:20 15:20 15:20 WBC 8.0 RBC 4.04 L Hgb 12.6 L Hct 36.4 L MCV 90.1 MCH 31.2 MCHC 34.6 RDW 12.4 RDW Differential 40.2 Plt Count 357 MPV 9.6 Immature Gran % (Auto) 0.500 Neut % (Auto) 58.9 Lymph % (Auto) 28.2 [place] % (Auto) 8.9 Eos % (Auto) 3.0 Baso % (Auto) 0.5 Absolute Neuts (auto) 4.7 Absolute Lymphs (auto) 2.25 Total Counted Not Reportable PT 13.1 INR 1.0 APTT 28.0 Sodium 135 L Potassium 4.7 Chloride 102 Carbon Dioxide 24.0 Anion Gap 9 BUN 29 H Creatinine 1.12 Estim Creat Clear Calc 59.75 Est GFR (MDRD) Af Amer 82 Est GFR (MDRD) Non-Af 68 BUN/Creatinine Ratio 25.9 H Glucose 282 H Calcium 9.0 Troponin I < 0.015 03/05/18 03/05/18 05:20 05:20 WBC 6.5 RBC 3.55 L Hgb 11.1 L Hct 32.3 L MCV 91.0 MCH 31.3 MCHC 34.4 RDW 12.5 RDW Differential 40.1 Plt Count 305 MPV 9.1 Immature Gran % (Auto) 0.300 Neut % (Auto) 60.1 Lymph % (Auto) 24.7 [place] % (Auto) 9.1 Eos % (Auto) 5.3 H Baso % (Auto) 0.5 Absolute Neuts (auto) 3.9 Absolute Lymphs (auto) 1.59 Total Counted Not Reportable PT INR APTT Sodium 139 Potassium 4.2 Chloride 105 Carbon Dioxide 25.0 Anion Gap 9 BUN 26 H Creatinine 1.00 Estim Creat Clear Calc 66.92 Est GFR (MDRD) Af Amer 94 Est GFR (MDRD) Non-Af 78 BUN/Creatinine Ratio 26.1 H Glucose 158 H Calcium 8.6 Troponin I POC Glucose 03/05/18 03/05/18 03/04/18 11:27 06:57 21:36 POC Glucose 306 H 162 H 287 H 03/04/18 18:02 POC Glucose 179 H Discharge Activity: Return to Normal Activity Weight Bearing Status: Weight bearing as tolerated Call your doctor if you observe: Fever of 101 or Higher, Numbness or Tingling, Shortness of breath, Dizziness, Fainting spells, Chest pain, Increased palpitations (irregular heartbeat), Uncontrolled pain Home Medications: Medications to take at Discharge Aspirin [Aspirin EC] 81 mg PO DAILY 06/06/17 Glucosamine/D3/Boswellia Janice [Glucosamine Daily Complex Tab] 1 ea PO BID 06/06/17 Magnesium Oxide [Magnesium] 250 mg PO DAILY 06/06/17 Multivitamin [Multiple Vitamins] 1 tab DAILY 06/06/17 Omeprazole 20 mg PO DAILY 06/06/17 glipizide 5 mg tablet 5 mg PO BID #180 tab 09/06/17 metformin 1,000 mg tablet 1,000 mg PO BID #180 tab 09/06/17 olmesartan 40 mg tablet 40 mg PO QDAY #90 tab 09/06/17 traMADol [Ultram] 50 mg PO Q4H PRN 03/04/18 Metoprolol Tartrate [Lopressor (beta mili)] 100 mg PO BID #90 tab 03/05/18 Simvastatin 40 mg PO QHS #90 tab 03/05/18 Following Prescrptions Were Given to Patient: Simvastatin 40 mg PO QHS #90 tab Metoprolol Tartrate [Lopressor (beta mili)] 100 mg PO BID #90 tab Primary Care Physician: Christos Copeland DO [Primary Care Provider] - Please follow up with your Primary Care Physician in: 1 week. Patient Instructions: Controlling High Blood Pressure, Taking Your Blood Pressure Medical Necessity - Tobacco Use Smoking Status: Never smoker Tobacco Use: Non-smoker Meaningful Use Info Meaningful Use Diagnoses (Choose all that apply): None applicable Code Visit OBSV E&M: 49532 Observation care discharge
--- NOTE | 2018-03-05 15:21 | DS.PCM_ITS ---
Discharge Date and Diagnosis Date of Admission: 03/04/18 Date of Discharge: 03/05/18 - Primary Discharge Diagnosis #1 transient ischemic attack. #2 hypertensive urgency. - Secondary Discharge Diagnosis Chronic Problems (Last Reviewed 03/05/18 @ 11:56 by Manuel Botello MD) Osteoarthritis of right hip (Chronic) History of esophageal stricture (Chronic) Arthritis (Chronic) High cholesterol (Chronic) Diabetes (Chronic) Hypertension (Chronic) Hospital Course and Treatment Imaging Results: 03/05/18 08:00 Echo Complete [ECHO] Routine Brain without Contrast [MRI] Urgent MRA Head ONLY without Contrast [MRI] Urgent MRA Neck WITH and W/O Contrast [MRI] Urgent Clinical Impression(s) from Imaging Studies Brain CT 03/04/18 15:18 IMPRESSION: No acute process. Involutional changes. Electronically Signed: Komal Del Rosario MD at 16:35 EDT Tel , Service support , Chest X-Ray 03/04/18 15:35 IMPRESSION: There are no acute findings. Electronically Signed: Keenan Padgett MD at 16:21 EDT , Service support , Brain MRI 03/05/18 08:00 IMPRESSION: No acute intracranial abnormality. Chronic right parietal small infarct. Electronically Signed: Sudhir Wan MD at 13:54 EDT Tel , Service support , Head MRA 03/05/18 08:00 IMPRESSION: Normal MRA of the head Electronically Signed: Sudhir Wan MD at 13:55 EDT Tel , Service support , Neck MRA 03/05/18 08:00 IMPRESSION: Atherosclerotic plaque with less than 50% stenosis at the bifurcations. Electronically Signed: Sudhir Wan MD at 15:08 EDT Tel , Service support , Dr. Botello, neurology. Procedures: 2-D Echocardiogram, EKG Summary of Care Provided: Patient seen and examined on the day of discharge and appeared to be stable to be discharged home. He has no more slurred speech and he denied any new symptoms. He was admitted for expressive aphasia as well as highly elevated blood pressure. Upon arrival to ER, his blood pressure was 243/103. He underwent standard stroke workup. He was treated with IV labetalol for hypertensive urgency. CT scan brain showed no acute findings. MRI brain showed no acute abnormality, no acute infarction. MRA of the neck revealed atherosclerotic plaque with less than 50% stenosis at the bifurcation of the carotid arteries. MRA of the head was normal. 2D echocardiogram revealed ejection fraction of 65%, bubble contrast study that was negative for [id number] shunt. Patient was already on aspirin and statins. His antihypertensive medications were adjusted and his blood pressure significantly improved. He had no focal deficit throughout the hospital stay. Acute stroke ruled out. Neurology consult and suggested that his symptoms could be due to encephalopathy secondary to pain medications as well as sleep deprivation. Patient discharged home in a stable medical condition, discharged on aspirin, discharged on simvastatin 40 mg p.o. daily, metoprolol increased to 100 mg p.o. daily, continued on olmesartan 40 mg p.o. daily, recommended to check blood pressure at least twice daily, follow-up with PCP in 1 week. - Physical Exam General: Alert, Oriented x3, Cooperative, No apparent distress HEENT: Atraumatic, PERRLA, EOMI, Normocephalic Oral: Moist Mucosa, No Gingival or Mucosal Lesions/ Ulcerations Neck: Supple, No JVD, Negative Carotid Bruits, Trachea Midline, Thyroid Normal Size and Texture Lungs: Clear to auscultation, No rhonchi, No wheeze, No rales, Diminished Cardiovascular: Regular rate, Regular Rhythm, Normal S1, Normal S2 Abdomen: Bowel Sounds Present, Soft, Non Tender, Non-Distended, No Hepato- splenomegaly Extremities: No clubbing, No cyanosis, No edema Skin: No rashes, No breakdown Neurological: Cranial nerves II-XII grossly intact, Motor Exam 5/5 strength throughout Psych/Mental Status: Normal Affect, Appropriate Vital Signs Temp Pulse Resp BP Pulse Ox 97.6 F L 70 18 133/67 H 94 03/05/18 09:30 03/05/18 11:23 03/05/18 09:30 03/05/18 09:30 03/05/18 09:30 Oxygen Flow Rate (L/min) 2 Oxygen Delivery Method Room Air Weight: 191 lb 6.4 oz Body Mass Index (BMI) 27.4 Finger Stick Blood Glucose 262 Intake and Output for Last 24 Hours 03/03/18 03/04/18 03/05/18 23:59 23:59 23:59 Intake Total 500 / 500 Balance 500 / 500 Laboratory Tests Past 24 Hrs 03/04/18 03/04/18 03/04/18 15:20 15:20 15:20 WBC 8.0 RBC 4.04 L Hgb 12.6 L Hct 36.4 L MCV 90.1 MCH 31.2 MCHC 34.6 RDW 12.4 RDW Differential 40.2 Plt Count 357 MPV 9.6 Immature Gran % (Auto) 0.500 Neut % (Auto) 58.9 Lymph % (Auto) 28.2 [place] % (Auto) 8.9 Eos % (Auto) 3.0 Baso % (Auto) 0.5 Absolute Neuts (auto) 4.7 Absolute Lymphs (auto) 2.25 Total Counted Not Reportable PT 13.1 INR 1.0 APTT 28.0 Sodium 135 L Potassium 4.7 Chloride 102 Carbon Dioxide 24.0 Anion Gap 9 BUN 29 H Creatinine 1.12 Estim Creat Clear Calc 59.75 Est GFR (MDRD) Af Amer 82 Est GFR (MDRD) Non-Af 68 BUN/Creatinine Ratio 25.9 H Glucose 282 H Calcium 9.0 Troponin I < 0.015 03/05/18 03/05/18 05:20 05:20 WBC 6.5 RBC 3.55 L Hgb 11.1 L Hct 32.3 L MCV 91.0 MCH 31.3 MCHC 34.4 RDW 12.5 RDW Differential 40.1 Plt Count 305 MPV 9.1 Immature Gran % (Auto) 0.300 Neut % (Auto) 60.1 Lymph % (Auto) 24.7 [place] % (Auto) 9.1 Eos % (Auto) 5.3 H Baso % (Auto) 0.5 Absolute Neuts (auto) 3.9 Absolute Lymphs (auto) 1.59 Total Counted Not Reportable PT INR APTT Sodium 139 Potassium 4.2 Chloride 105 Carbon Dioxide 25.0 Anion Gap 9 BUN 26 H Creatinine 1.00 Estim Creat Clear Calc 66.92 Est GFR (MDRD) Af Amer 94 Est GFR (MDRD) Non-Af 78 BUN/Creatinine Ratio 26.1 H Glucose 158 H Calcium 8.6 Troponin I POC Glucose 03/05/18 03/05/18 03/04/18 11:27 06:57 21:36 POC Glucose 306 H 162 H 287 H 03/04/18 18:02 POC Glucose 179 H Discharge Activity: Return to Normal Activity Weight Bearing Status: Weight bearing as tolerated Call your doctor if you observe: Fever of 101 or Higher, Numbness or Tingling, Shortness of breath, Dizziness, Fainting spells, Chest pain, Increased palpitations (irregular heartbeat), Uncontrolled pain Home Medications: Medications to take at Discharge Aspirin [Aspirin EC] 81 mg PO DAILY 06/06/17 Glucosamine/D3/Boswellia Janice [Glucosamine Daily Complex Tab] 1 ea PO BID 06/06/17 Magnesium Oxide [Magnesium] 250 mg PO DAILY 06/06/17 Multivitamin [Multiple Vitamins] 1 tab DAILY 06/06/17 Omeprazole 20 mg PO DAILY 06/06/17 glipizide 5 mg tablet 5 mg PO BID #180 tab 09/06/17 metformin 1,000 mg tablet 1,000 mg PO BID #180 tab 09/06/17 olmesartan 40 mg tablet 40 mg PO QDAY #90 tab 09/06/17 traMADol [Ultram] 50 mg PO Q4H PRN 03/04/18 Metoprolol Tartrate [Lopressor (beta mili)] 100 mg PO BID #90 tab 03/05/18 Simvastatin 40 mg PO QHS #90 tab 03/05/18 Following Prescrptions Were Given to Patient: Simvastatin 40 mg PO QHS #90 tab Metoprolol Tartrate [Lopressor (beta mili)] 100 mg PO BID #90 tab Primary Care Physician: Christos Copeland DO [Primary Care Provider] - Please follow up with your Primary Care Physician in: 1 week. Patient Instructions: Controlling High Blood Pressure, Taking Your Blood Pressure Medical Necessity - Tobacco Use Smoking Status: Never smoker Tobacco Use: Non-smoker Meaningful Use Info Meaningful Use Diagnoses (Choose all that apply): None applicable Code Visit OBSV E&M: 80362 Observation care discharge
== END 2018-03-05 13:50 | disposition home or self-care (01) ==
LOC: ED 15:30 → PCU 17:29
PROVIDERS: Admitting Provider Student in an Organized Health Care Education/Training Program; Emergency Provider Emergency Medicine; Family Provider Family Medicine; PCP Family Medicine; Visit Provider Hospitalist
DX: G45.9 Transient cerebral ischemic attack, unspecified (principal); I16.0 Hypertensive urgency; M16.11 Unilateral primary osteoarthritis, right hip; I10 Essential (primary) hypertension; M19.90 Unspecified osteoarthritis, unspecified site; E11.9 Type 2 diabetes mellitus without complications; E78.5 Hyperlipidemia, unspecified; I25.10 Atherosclerotic heart disease of native coronary artery without angina pectoris; R47.01 Aphasia; R20.0 Anesthesia of skin; G58.9 Mononeuropathy, unspecified; R29.701 NIHSS score 1; G89.29 Other chronic pain; Z79.899 Other long term (current) drug therapy; Z79.82 Long term (current) use of aspirin; Z95.5 Presence of coronary angioplasty implant and graft; Z79.84 Long term (current) use of oral hypoglycemic drugs
CPT/HCPCS: 36415; 70450; 70544; 70549; 70551; 71045; 80048; 82962; 84484; 85025; 85610; 85730; 92522; 93005; 93306; 96372; 96374; 97162; 97165; 99218; 99283; A9585; A4216; G0378

== ENCOUNTER → 2018-03-07 11:26 | Outpatient (CLI) | payer MEDICARE, SELFPAY ==
[2018-03-07 13:02] LABS: Hemoglobin A1c 8.9 % (4.2-6.3)
[2018-03-07 13:13] LABS: Cholesterol 109 mg/dL (200); High Density Lipoprotein 30 mg/dL; Triglycerides 137 mg/dL; Very Low Density Lipoprotein 27 mg/dL (5-40)
== END ==
PROVIDERS: Family Provider Family Medicine; PCP Family Medicine; Referring Provider Family Medicine; Visit Provider Family Medicine
DX: E11.9 Type 2 diabetes mellitus without complications (principal); E78.00 Pure hypercholesterolemia, unspecified
CPT/HCPCS: 36415; 80061; 83036

== ENCOUNTER 2018-06-29 01:53 | Emergency (ER) | payer MEDICARE, SELFPAY ==
[2018-06-26 10:18] VITALS: BMI 28.3
[2018-06-29 01:55] VITALS: BP 242/102; PULSE 68; RESP 10; TEMP 36.9; O2SAT 97; BMI 28.4
--- NOTE | 2018-06-29 01:57 | CT_ITS ---
STUDY: CT BRAIN WITHOUT CONTRAST REASON FOR EXAM: Male, 72 years old. Headache and hypertension RADIATION DOSAGE (If Supplied By Facility): CTDIvol = ( 44.99 ) mGy, DLP = ( 796.11 ) mGycm TECHNIQUE: Transaxial CT imaging of the brain was performed without administration of intravenous contrast material. Individualized dose optimization techniques were used for this CT. COMPARISON: 03/04/2018 FINDINGS: Normal soft tissue structures. Normal calvarium. Bilateral lens replacements. Normal size ventricles and extra-axial spaces for the patient's age. There are areas of decreased attenuation within the white matter tracts of the supratentorial brain, consistent with microvascular disease changes. Normal age-related changes of the basal ganglia. Normal brainstem. Normal cerebellum. There is no intracranial hemorrhage. There are no findings of an acute ischemic infarction. Normal visualized paranasal sinuses. CT/Brain/Head without Contrast IMPRESSION: No CT evidence of acute infarct or hemorrhage. If there is clinical concern for hyperacute ischemia that is not evident by CT, MRI should be considered if possible. Electronically Signed: Richard Presley MD at 3:15 EST Tel , Service support ,
--- NOTE | 2018-06-29 01:57 | RAD_ITS ---
STUDY: X-RAY CHEST REASON FOR EXAM: Male, 72 years old. Chest pain TECHNIQUE: Frontal and lateral views of the chest. COMPARISON: 02/24/2018 FINDINGS: The lungs are clear and expanded. There is no demonstrated pleural abnormality. Stable cardiomediastinal silhouette. Normal mediastinum and isidro. Normal visualized pulmonary arteries. Normal visualized aortic arch and descending thoracic aorta. There are diffuse degenerative changes of the visualized thoracic spine. Normal visualized ribs, clavicles, and shoulders. There is no demonstrated abnormality of the visualized soft tissue structures of the upper abdomen. RAD/Chest PA and Lateral IMPRESSION: No acute pulmonary findings. Electronically Signed: Richard Presley MD at 3:17 EST Tel , Service support ,
--- NOTE | 2018-06-29 01:57 | EKG12_ITS ---
Test Reason : Blood Pressure : / mmHG Vent. Rate : 072 BPM Atrial Rate : 072 BPM P-R Int : 194 ms QRS Dur : 090 ms QT Int : 392 ms P-R-T Axes : 044 -16 018 degrees QTc Int : 429 ms Normal sinus rhythm Normal ECG Confirmed by ABE STOREY, KYLE ([id number]), publications editor KENNETH CASTANO ([id number]) on 07/02/2018 5:20:17 PM Referred By: YOKO Confirmed By:KYLE FISH MD
[2018-06-29 02:02] VITALS: BP 210/94; PULSE 65; RESP 16; O2SAT 93
[2018-06-29] MEDS: hydrALAZINE 20 MG/ML Vial 10 MG IV (02:09)
[2018-06-29 02:21] LABS: Absolute Neutrophil Count 3.8 X10^3/uL (2.0-7.7); Basophil# 0.02 X10^3/uL; Basophil% 0.3 % (0-1); Eosinophil# 0.38 X10^3/uL; Eosinophils% 5.2 % (0-5); Hematocrit 38.3 % (40-54); Hemoglobin 12.8 g/dl (13.0-16.5); Lymphocyte % 33.1 % (19-41); Mean Corp Hgb Conc 33.4 g/gl (32-36); Mean Corpuscular Hgb 29.8 pg (27.0-32.0); Mean Corpuscular Volume 89.1 fL (80-94); Monocyte# 0.64 X10^3/uL; Monocyte% 8.8 % (0-10); Neutrophil # 3.78 X10^3/uL (2.7-7.7); Neutrophil % 52.3 % (47-70); POSITIVE COUNT NO; POSITIVE DIFFERENTIAL NO; POSITIVE MORPHOLOGY NO; Platelet Count 268 K/mm3 (150-450); RBC Distribution Width CV 12.5 % (11.6-14.6); RBC Distribution Width SD 39.4 fl (35.1-43.9); White Blood Count 7.2 K/mm3 (4.4-11.0)
[2018-06-29 02:34] LABS: Anion Gap 7 (5-15); BUN 24 mg/dL (7-18); BUN/Creat Ratio 24.6 RATIO (10-20); Calcium,Total 9.2 mg/dL (8.5-10.1); Chloride 104 mmol/L (98-107); Creatinine, Serum 0.97 mg/dL (0.70-1.30); EST Glomerular Filtration Rate 80 mL/min (>60); Est Glom Filt Rate - Afr Amer 97 mL/min (>60); Estimated Creatinine Clearance 68.99 ml/min; Glucose 162 mg/dL (74-106); Potassium 3.9 mmol/L (3.5-5.1); Sodium Level 136 mmol/L (136-145)
--- NOTE | 2018-06-29 03:34 | ED.VISSUMM ---
- ER Visit Summary Date of Service: 06/29/18 Chief Complaint: Elevated blood pressure History of Present Illness: The patient is a 72 M with a history of hypertension presenting with increased blood pressure at home. He states that he was well controlled until around 6 months ago when he had an injection of steroid into his head. Since then, he has had fairly labile blood pressures. He has been started on additional medications and his current medications have been adjusted. He has remained elevated in the 170s and 180s but not had any symptoms. He stopped taking his hydrochlorothiazide last week because he did not realize that it was for his blood pressure. When he saw his doctor on Monday, his blood pressure was nearly 200 systolic so he was restarted on the hydrochlorothiazide. Since then his pressure has remained in the 180-190 range but he has been asymptomatic. Tonight it was over 200 systolic and he felt somewhat flushed but is now feeling better. He denies chest pain or shortness of breath. Denies confusion. Denies any supplement use or recent [id number] cold medication. Physical Examination: Blood pressure is 220/100 initially but other vitals are within normal limits. He is not in distress. He is sitting up in bed and speaking in full sentences. Neck is supple. Heart tones are regular and without murmur. Lungs are clear bilaterally. Abdomen is soft and nontender. No focal or lateralizing neuro findings. No clinical evidence of DVT. No lower extremity edema. Test Results: CBC and chemistries are basically normal. Troponin is negative. EKG unremarkable. Chest x-ray unremarkable. CT brain unremarkable. No evidence of endorgan damage from his elevated pressure. He was given 10 mg of hydralazine and his repeat blood pressure is markedly improved. He looks well. He can ambulate without difficulty. This is been somewhat of a chronic issue for him. He would prefer to go home and follow-up closely with his doctor as an outpatient. I think this is reasonable given his well appearance. Blood pressure was repeated again and it was 170 systolic. Emergency Department Course and Treatment: Repeat blood pressure at 4:30 AM is 157/81. He is completely asymptomatic. Ambulating without difficulty. Looks well. I have been attempting to call his primary care physician to discuss adding an additional blood pressure agent however, he does not want to wait any longer and would prefer to see him today. He states that he is typically able to speak with him when he calls and most likely could see him in the office this morning to discuss blood pressure control. I think this is safe and reasonable given his improvement of blood pressure and unremarkable workup. He also requested a referral to cardiology which I do think is reasonable. Treatment Plan: See his primary care physician this morning Disposition: Home stable Impression: Initial encounter poorly controlled hypertension This note was generated with [employer] dictation software. It may contain incorrect words, spelling, and punctuation that were not noted in review of the chart prior to signing ED Disposition - Plan for ED Patient: Instructions: ED Hypertension Conf Out Of Control Referrals: Christos Copeland DO [Primary Care Provider] - As soon as possible Negro Domingo MD [STAFF PHYSICIAN] - As soon as possible
[2018-06-29 04:07] VITALS: BP 157/81; PULSE 68; RESP 16; O2SAT 94
[2018-06-29 04:50] VITALS: BP 177/79; PULSE 67; RESP 18; O2SAT 94
== END 2018-06-29 06:56 | disposition home or self-care (01) ==
PROVIDERS: Emergency Provider Emergency Medicine; Family Provider Family Medicine; PCP Family Medicine
DX: I10 Essential (primary) hypertension (principal); I25.10 Atherosclerotic heart disease of native coronary artery without angina pectoris; I25.2 Old myocardial infarction; E11.9 Type 2 diabetes mellitus without complications; Z95.5 Presence of coronary angioplasty implant and graft; Z79.82 Long term (current) use of aspirin; Z79.4 Long term (current) use of insulin; Z79.899 Other long term (current) drug therapy
CPT/HCPCS: 70450; 71046; 80048; 84484; 85025; 93005; 96374; 99284; A4216

== ENCOUNTER → 2018-07-23 11:46 | Outpatient (CLI) | payer MEDICARE, SELFPAY ==
[2018-07-10 09:51] VITALS: BMI 28.3
[2018-07-23 13:05] LABS: AST(SGOT) 25 U/L (15-37); Alanine Aminotransfer ALT/SGPT 30 U/L (16-61); Alkaline Phosphatase 25 U/L (45-117); Anion Gap 4 (5-15); BUN 27 mg/dL (7-18); BUN/Creat Ratio 23.1 RATIO (10-20); Bilirubin, Direct 0.16 mg/dL (0.00-0.30); Calcium,Total 8.8 mg/dL (8.5-10.1); Chloride 106 mmol/L (98-107); Cholesterol 135 mg/dL (200); Creatinine, Serum 1.17 mg/dL (0.70-1.30); EST Glomerular Filtration Rate 65 mL/min (>60); Est Glom Filt Rate - Afr Amer 78 mL/min (>60); Globulin 3.2 g/dL (2.2-4.2); Glucose 168 mg/dL (74-106); High Density Lipoprotein 35 mg/dL; Potassium 4.8 mmol/L (3.5-5.1); Protein, Total 7.2 g/dL (6.4-8.2); Sodium Level 136 mmol/L (136-145); Triglycerides 135 mg/dL; Very Low Density Lipoprotein 27 mg/dL (5-40)
== END ==
PROVIDERS: Nurse Practitioner Family; Family Provider Family Medicine; PCP Family Medicine; Referring Provider Internal Medicine Cardiovascular Disease; Visit Provider Internal Medicine Cardiovascular Disease
DX: E78.5 Hyperlipidemia, unspecified (principal); I25.10 Atherosclerotic heart disease of native coronary artery without angina pectoris; I10 Essential (primary) hypertension
CPT/HCPCS: 36415; 80048; 80061; 80076

== ENCOUNTER → 2018-08-07 08:41 | Outpatient (CLI) | payer MEDICARE, SELFPAY ==
[2018-07-10 09:51] VITALS: BMI 28.3
[2018-07-24 09:23] VITALS: BMI 28.4
--- NOTE | 2018-08-07 08:43 | STE_ITS ---
Reason For Study: CAD/ASHD Stress Results Maximum Predicted HR: 146 bpm Target HR: 124 bpm % Maximum Predicted HR: 86 % DurationHeart Rate Stage (mm:ss) (bpm) BP BASELINE 61 154/70 STAGE 1 3:00 90 178/78 STAGE 2 3:00 107 188/68 STAGE 3 3:00 121 198/62 STAGE 4 0:31 126 / RECOVERY 74 160/70 Stress Duration: 9:31 mm:ss Maximum Stress HR: 126 bpm Baseline Echocardiogram Findings The estimated ejection fraction is 65 %. Stress Echo Wall motion Data Resting WM Intermediate WM Stress WM Resting Wall Motion Wall Motion Stress No regional wall motion No regional wall motion abnormalities noted. abnormalities noted. EKG Data The baseline ECG displays normal sinus rhythm. The patient exercised according to the regular Todd protocol for a total duration of 9:31. The maximum heart rate attained was 126 beats per minute. This was 86% of maximum predicted heart rate. The patient exercised into stage 4 of the Todd protocol. During stress, there were no ST or T wave changes noted to suggest ischemia. No clinical angina was noted. Interpretation Summary The estimated ejection fraction is 65 %. Normal, adequate, treadmill echocardiogram. Negative for ischemia by EKG and echocardiographic criteria. No anginal symptoms noted. Rare PVCs noted during exercise and into recovery. One ventricular couplet during recovery. Hypertensive blood pressure response to exercise. Above average exercise capacity for age. Test terminated due to the attainment of target heart rate and dyspnea. Final LVEF is 75%. No complications. Ordering Physician: Negro Domingo MD Referring Physician: Negro Domingo Performed By: Kelli Sprague RDCS
--- NOTE | 2018-08-07 08:43 | RDU_ITS ---
Reason For Study: HTN urgency Right Renal Artery Left Renal Artery Right renal artery ostium 76.5/19.9 Left renal artery ostium 98.4/21.7 RSV/EDV. PSV/EDV. Right renal artery proximal Left renal artery proximal PSV/EDV 87.5/27.2 PSV/EDV. 102.1/18.1 . Right renal artery mid 94.8/23.6 Left renal artery mid 122.2/27.2 PSV/EDV. PSV/EDV . Right renal artery distal 80.7/24.1 Left renal artery distal 113/24.1 PSV/EDV. PSV/EDV. Right RAR 1.0. Left RAR 1.3. Right Renal Parenchyma Left Renal Parenchyma Upper Pole Medula 29.1/7.2 PSV/EDV. Left upper pole medulla 32.1/13.9 Right upper pole medulla EDR .25 . PSV/EDV . Right upper pole medulla R.I. .75 . Left upper pole medulla EDR .43 . Upper Estuardo Cortx 19.0/5.5 PSV/EDV. Left upper pole medulla R.I. .57 . Right upper pole cortex EDR .29 . UP Cortex 32.1/11.1 PSV/EDV. Right upper pole cortex R.I. .71 . Left upper pole cortex EDR .35 . Right lower Pole medulla 42.3/11.6 Left upper pole cortex R.I. .65 . PSV/EDV . Left lower Pole medulla 34.9/10.2 Right lower pole medulla EDR .27 . PSV/EDV . Right lower pole medulla R.I. .73 . Left lower pole medulla EDR .29 . Lower Pole Cortex 23.9/8.5 PSV/EDV. Left lower pole medulla R.I. .71 . Right lower pole cortex EDR .36 . Lower Pole Cortx 38.5/12.1 PSV/EDV. Right lower pole cortex R.I. .64 . Left lower pole cortex EDR .31 . Right Renal Hilar Left lower pole cortex R.I. .69 . Right Hilar avg 32.5/9.2 PSV/EDV. Left Renal Hilar Right hilar acceleration time 30 Left hilar acceleration time 50 m/sec. m/sec. Right Renal Dimensions LT Hilar avg 36.7/11.1 PSV/EDV . Right kidney size 11.3 cm . Left Renal Dimensions Right cortical dimension 1.75 cm . Left kidney size 11.8 cm . Left cortical dimension 1.62 cm . Aorta Proximal abdominal aorta 1.84 x 2.13 cm . Proximal abdominal aorta peak systolic velocity is 93.0 cm/sec . Distal abdominal aorta 1.64 x 1.7 cm . Distal abdominal aorta peak systolic velocity is 60.1 cm/sec . Interpretation Summary Dimensions of the intra-abdominal aorta appear normal, without evidence of aneurysmal dilatation. Renal artery velocities are bilaterally normal. Acceleration times are normal bilaterally. Renal- aortic ratios are also bilaterally normal. There is no evidence of hemodynamically significant renal artery stenosis on either side. The right cortical dimension is increased. The left cortical dimension is increased. Kidneys appear normal in size bilaterally. Ordering Physician: Negro Domingo Performed By: Omer Marquis RVT
== END ==
PROVIDERS: Family Provider Family Medicine; PCP Family Medicine; Referring Provider Internal Medicine Cardiovascular Disease; Visit Provider Internal Medicine Cardiovascular Disease
DX: I25.10 Atherosclerotic heart disease of native coronary artery without angina pectoris (principal); I10 Essential (primary) hypertension; Z95.5 Presence of coronary angioplasty implant and graft
CPT/HCPCS: 93017; 93350; 93975

== ENCOUNTER → 2018-12-18 09:22 | Outpatient (CLI) | payer MEDICARE, SELFPAY ==
[2018-12-18 09:18] VITALS: BMI 28.4
--- NOTE | 2018-12-18 09:23 | RAD_ITS ---
STUDY: X-RAY - LUMBAR SPINE REASON FOR EXAM: Male, 73 years old. Low back pain TECHNIQUE: 4 view(s) of the lumbar spine were obtained. COMPARISON: None FINDINGS: Normal lumbar lordosis. There is no substantial scoliosis. There is a normal alignment of the vertebrae. No evidence for acute fracture or subluxation. There is narrowing of L4-5 disc space and multilevel osteophytic spurring. Films obtained in flexion-extension demonstrate no evidence for gross instability The soft tissue structures are unremarkable. RAD/L/S Spine Min 4 Views IMPRESSION: Moderate spondylosis. No evidence for acute fracture Electronically Signed: Bryce Martin MD at 17:08 EDT , Service support ,
== END ==
PROVIDERS: Family Provider Family Medicine; PCP Family Medicine; Referring Provider Orthopaedic Surgery; Visit Provider Orthopaedic Surgery
DX: M16.11 Unilateral primary osteoarthritis, right hip (principal); M54.5 Low back pain
CPT/HCPCS: 72110

== ENCOUNTER → 2019-01-16 | Outpatient (CLI) | payer MEDICARE, SELFPAY ==
[2019-01-16 10:29] VITALS: BMI 28.4
[2019-01-16 12:45] LABS: Hemoglobin A1c 8.9 % (4.2-6.3)
[2019-01-16 12:50] LABS: Bilirubin, Direct 0.11 mg/dL (0.00-0.30); Cholesterol 138 mg/dL (200); High Density Lipoprotein 33 mg/dL; Triglycerides 207 mg/dL; Very Low Density Lipoprotein 41 mg/dL (5-40)
[2019-01-16 13:10] LABS: ALB/GLOB Ratio 1.1 RATIO (0.9-2.4); AST(SGOT) 22 U/L (15-37); Alanine Aminotransfer ALT/SGPT 33 U/L (16-61); Albumin, Serum 3.8 g/dL (3.2-5.0); Alkaline Phosphatase 25 U/L (45-117); Anion Gap 6 (5-15); BUN 29 mg/dL (7-18); BUN/Creat Ratio 24.4 RATIO (10-20); Calcium,Total 9.2 mg/dL (8.5-10.1); Chloride 106 mmol/L (98-107); Creatinine, Serum 1.19 mg/dL (0.70-1.30); EST Glomerular Filtration Rate 63 mL/min (>60); Est Glom Filt Rate - Afr Amer 77 mL/min (>60); Globulin 3.4 g/dL (2.2-4.2); Glucose 129 mg/dL (74-106); Potassium 4.4 mmol/L (3.5-5.1); Protein, Total 7.2 g/dL (6.4-8.2); Sodium Level 138 mmol/L (136-145)
== END | disposition home or self-care (01) ==
PROVIDERS: Physician Assistant Medical; Family Provider Family Medicine; PCP Family Medicine; Visit Provider Family Medicine
DX: E11.9 Type 2 diabetes mellitus without complications (principal); I10 Essential (primary) hypertension; E78.5 Hyperlipidemia, unspecified
CPT/HCPCS: 36415; 80053; 80061; 82248; 83036

== ENCOUNTER → 2019-10-23 08:36 | Outpatient (CLI) | payer MEDICARE, SELFPAY ==
[2019-09-19 09:01] VITALS: BMI 28.4
[2019-10-23 09:38] LABS: AST(SGOT) 27 U/L (15-37); Alanine Aminotransfer ALT/SGPT 39 U/L (16-61); Albumin, Serum 3.8 g/dL (3.2-5.0); Alkaline Phosphatase 25 U/L (45-117); Bilirubin, Direct 0.09 mg/dL (0.00-0.30); Cholesterol 137 mg/dL (200); Globulin 3.4 g/dL (2.2-4.2); High Density Lipoprotein 28 mg/dL; Protein, Total 7.2 g/dL (6.4-8.2); Triglycerides 207 mg/dL; Very Low Density Lipoprotein 41 mg/dL (5-40)
== END ==
PROVIDERS: PCP Family Medicine; Referring Provider Internal Medicine Cardiovascular Disease; Visit Provider Internal Medicine Cardiovascular Disease
DX: E78.00 Pure hypercholesterolemia, unspecified (principal); E78.5 Hyperlipidemia, unspecified
CPT/HCPCS: 36415; 80061; 80076

== ENCOUNTER 2020-08-28 06:49 | Day surgery (SDC) | payer MEDICARE, SELFPAY ==
[2020-07-29 09:43] VITALS: BMI 38.1
[2020-08-28] VITALS (7 sets, daily range): BP systolic 105–123; BP diastolic 57–98; PULSE 61–67; RESP 16; TEMP 36.3–36.8; O2SAT 93–98; BMI 29.3
--- NOTE | 2020-08-28 07:00 | HP_ITS ---
I have re-examined the patient. There are no clinical changes since date of exam. Intake Intake Visit Reasons: right hand Chief Complaint: 3 MO f/u - Diabetes Allergies prednisone Adverse Reaction (Severe, Verified 07/29/20 09:38) Severe htn and glucose elevation tetanus and diphtheria toxoids Adverse Reaction (Verified 07/29/20 09:38) Upset Stomach PFSH Medical History Essential hypertension (Chronic) Hyperlipidemia (Chronic) Hx-TIA (transient ischemic attack) (Chronic 03/04/18) Diabetes mellitus type II, controlled (Chronic) Atherosclerotic heart disease of [place] coronary artery without angina pectoris (Chronic) Left ventricular hypertrophy (Chronic) Arthritis (Chronic) Surgical History Stented coronary artery (Chronic 06/28/06) History of esophageal dilatation (Resolved) History of hernia repair (Resolved) History of nasal surgery (Resolved) Family History Mother Hypertension Father Myocardial infarction Pancreatic cancer Brother Pancreatic cancer Brother Liver cancer Brother Non-Hodgkin lymphoma Social History (Updated 08/18/20 @ 15:[address] Jessica Menjivar DO) Smoking Status: Former smoker how long ago did patient quit smoking: Quit in 1972 alcohol intake: never substance use type: does not use caffeine: No what type of physical activity do you participate in: walking frequency: 5-6 times per week HPI right hand: Surgical H&P: Yes Details: Parts of this documentation were recorded by a scribe, this documentation accurately reflects the service provided and the decisions made by me, Dr. Jessica Menjivar, 08/18/20 [id number]. TULIO CABRERA is a 74 year old M here today for F/U on right wrist to sign surgery consent for right carpal tunnel release. He continues to have pain and numbness and tingling. Denies any changes since the last visit. [facility] Denies system reviewed and no additional complaints, except as docu, Denies joint pain, Denies numbness, Denies stiffness, Denies tingling Neuro No numbness, No tingling Ortho Exam General General: Yes no acute distress Neurologic: Yes alert, Yes oriented x3 Psychologic: Yes reasonable and appropriate Right Wrist/Hand Skin/Wound: No Swelling, No Ecchymosis, Yes capillary refill normal A1 humza trigger: Yes Right Wrist: Yes ROM-Extension 0-60, ROM-Pronation 0-80, ROM-Supination 0-90, Durken's Test, Tinel's, Phalen's, TTP CMC and Thenar Atrophy Motor: EPL: 5, FDP-2: 4, 1st Dorsal Interosseous: 5, APB: 4 Sensation: Radial: I, Ulnar: I, Median: D Left Wrist/Hand Skin/Wound: No Swelling, No Ecchymosis Motor: EPL: 5, FDP-2: 4, 1st Dorsal Interosseous: 5, APB: 4 Sensation: Radial: I, Ulnar: I, Median: D Assessment & Plan Problems 1. Right carpal tunnel syndrome G56.01 Plan Patient aware that he has right carpal tunnel syndrome. He is also aware of the treatment options and wishes to proceed with right carpal tunnel release. Reviewed the pre-operative plans with the patient. Risks and benefits of the procedure were fully explained, including but not limited to infection, neurovascular injury, continued pain, arthritis, stiffness, need for further surgery, re-injury, DVT, PE, general risks of anesthesia, and loss of limb or life. The patient understands all the risks and does wish to proceed with written consent for right carpal tunnel release. Follow up 2 weeks post op or sooner if pain, swelling, numbness or associated symptoms, or concerns develop. All questions answered. Patient in agreement of plan. Coding Level of Care Code Off vis,est,level 4 Diagnoses Right carpal tunnel syndrome G56.01 COVID (Procedure Consent) Procedure Criteria Procedure Criteria: Yes Elective The surgeon/proceduralist and patient have discussed in detail the risk of exposure to and/or potential harm posed by the COVID-19 virus with having a surgery/procedure at this time versus the risk of? delaying the surgery/procedure. It is not possible to know either the risk of delaying the surgery or procedure or chance of getting an infection with perfect accuracy, but a joint decision was made between the patient and the surgeon/proceduralist ?to proceed at this time with the scheduled surgery/procedure as indicated on the consent form.
[2020-08-28] MEDS: Lactated Ringers 1,000 ML 100 ML IV (07:35)
[2020-08-28 08:27] LABS: Bedside Glucose 144 mg/dL (70-110)
[2020-08-28] MEDS: Cefazolin 2 GM in 0.9% Normal Saline 100 ML IV (08:38)
[2020-08-28] MEDS: Mupirocin Ointment 22gm Tube 1 APPLIC (08:43)
[2020-08-28] MEDS: Lidocaine 1% (30 ml sdv) 30 ML Vial (09:00)
[2020-08-28] MEDS: Bupivacaine Mpf 0.5% 30 ML VIAL (09:00)
--- NOTE | 2020-08-28 09:11 | PCM.DC.ORTHO ---
Discharge Diet: No Restrictions - Leave dressing on until seen in postop clinic in 10-14 days for suture removal, keep dressing clean, dry, intact; change dressing if gets wet/dirty, call with concerns Discharge Activity: May Not Drive May shower in (days): 1 Ice area for (Minutes): 20 - Every hour while awake. Weight Bearing Status: Weight bearing as tolerated Keep extremity elevated above heart level: Operative Extremity Call your doctor if your incision/area has: Continuous Slow Oozing, Sudden Increased Bleeding, Increased Pain/ Swelling, Increased Redness, Foul Smelling Discharge Call your doctor if you observe: Fever of 101 or Higher, Coldness, Increased Pain, Numbness or Tingling, Change in Color, Calf discomfort Allergies/Adverse Reactions: Allergies prednisone Adverse Reaction (Severe, Verified 08/28/20 07:26) Severe htn and glucose elevation tetanus and diphtheria toxoids Adverse Reaction (Verified 08/28/20 07:26) Upset Stomach Medications to take at Discharge Aspirin [Aspirin EC] 81 mg PO DAILY 06/06/17 Glucosamine/D3/Boswellia Janice [Glucosamine Daily Complex Tab] 1 ea PO BID 06/06/17 Magnesium Oxide [Magnesium] 250 mg PO DAILY 06/06/17 Multivitamin [Multiple Vitamins] 1 tab PO DAILY 06/06/17 blood sugar diagnostic See Dose Instructions .ROUTE .MEDSUPPLY #100 ea 01/22/20 tamsulosin 0.4 mg capsule 0.4 mg PO DAILY #90 cap 01/22/20 simvastatin 20 mg tablet 20 mg PO QHS #90 tab 04/22/20 valsartan 160 mg tablet 160 mg PO DAILY #90 tab 04/22/20 amlodipine 10 mg tablet 10 mg PO DAILY tab 06/02/20 omeprazole 20 mg capsule,delayed release 20 mg PO QODAY cap 06/02/20 carvedilol 12.5 mg tablet 6.25 mg PO BID tab 06/03/20 hydrochlorothiazide 25 mg tablet 25 mg PO DAILY #90 tab 07/29/20 insulin glargine U-300 conc 300 unit/mL (3 mL) subcutaneous pen 66 unit SUBCUT DAILY ml 07/29/20 metformin 1,000 mg tablet 1,000 mg PO BID #180 tab 07/29/20 glipizide 5 mg tablet 5 mg PO DAILY #90 tablet 07/31/20 blood sugar diagnostic See Rx Instructions .ROUTE .MEDSUPPLY #180 each 08/06/20 Acetaminophen/Codeine #3 [Tylenol #3 Tablet] 1 - 2 tablet PO Q6H PRN PRN #15 tablet 08/28/20 The following prescriptions were given: Acetaminophen/Codeine #3 [Tylenol #3 Tablet] 1 - 2 tablet PO Q6H PRN PRN #15 tablet PRN Reason: Pain Transmission Status: Sent to [facility] Primary Care Physician: Christos Copeland DO [Primary Care Provider] - Test Results: Test results from this visit will be discussed in further detail at your follow-up appointment, if applicable. Please Follow Up With: Jessica Menjivar DO - [phone]
--- NOTE | 2020-08-28 09:12 | PCM.OPRPT ---
Report of Operation Date of Procedure: 08/28/20 Pre-Operative Diagnosis: right carpal tunnel syndrome Post-Operative Diagnosis: same Surgery/Procedure Performed:: right carpal tunnel release networking technology instructor: Shantell Green Type of Anesthesia:: Sergo Hernandez, Local Anesthesiologist: Andre Holder Estimated Blood Loss (mL): min Fluids Replaced: 600cc lr Description of Procedure: Preoperative note Patient is a 74 year old patient with nerve conduction study confirming carpal tunnel syndrome. Patient failed conservative treatment for her carpal tunnel elected proceed with right carpal tunnel release. Risks benefits and alternatives surgery discussed with patient. Risks including but not limited to blood loss, blood clot, infection, neurovascular injury, failure procedure, loss of life and loss of limb. Patient is aware like proceed with right carpal tunnel release. Operative note Patient seen and examined preoperative holding area. right hand was marked. History and physical and consent reviewed. Patient was brought to the operating room placed supine on the operating table. Sign in, anesthesia, antibiotics were administered. right upper extremity was prepped and draped after Sergo block was initiated. All bony prominences well-padded SCDs placed on bilateral lower extremities. We marked out our incisions for our carpal tunnel release at the intersection of Danyel's line in the fourth ray flexed. We extended about a centimeter and a half. Timeout was performed. We then checked ensure that the Sergo block was working with pickups which it was not so we performed a local block of 10cc 1% lidocaine. We then used a 15 blade to make a skin incision. We then dissected down tenotomy syllable of the transverse carpal ligament. We then used a new 15 blade cut through the transverse carpal ligament down to the level of the median nerve. We then further released the median nerve the combination of the 15 blade and tenotomies. The nerve was grayish in color and adherent to the transverse carpal ligament volarly. We released the transverse carpal ligament distally to the fat pad and then proximally under standard technique. We then palpated to ensure that we released all of the transverse carpal ligament which we did. We irrigated the incision with copious amounts of sterile saline. All bleeders were coagulated. The incision was closed with interrupted 4-0 nylon stitches. Tourniquet was deflated for total working time of 12 minutes. Patient tolerated procedure well there were no complications. Patient transferred to recovery room in stable condition. Postoperative note Hospital pharmacy has prescription Leave dressing clean dry and intact Follow-up in 2 weeks Call with concerns This note was generated with [employer] dictation software. It may contain incorrect words, spelling, and punctuation that were not noted in checking the note before signing
== END 2020-08-28 10:34 | disposition home or self-care (01) ==
LOC: SDC 06:51 → AC 06:52
PROVIDERS: PCP Family Medicine; Referring Provider Orthopaedic Surgery; Visit Provider Orthopaedic Surgery
PROC: (CPT 64721; principal; 2020-08-28 08:15)
DX: G56.01 Carpal tunnel syndrome, right upper limb (principal); Z20.828 Contact with and (suspected) exposure to other viral communicable diseases; E11.9 Type 2 diabetes mellitus without complications; E78.5 Hyperlipidemia, unspecified; I10 Essential (primary) hypertension; I25.10 Atherosclerotic heart disease of native coronary artery without angina pectoris; M19.90 Unspecified osteoarthritis, unspecified site; K21.9 Gastro-esophageal reflux disease without esophagitis; Z95.5 Presence of coronary angioplasty implant and graft; Z86.73 Personal history of transient ischemic attack (TIA), and cerebral infarction without residual deficits; Z87.891 Personal history of nicotine dependence; Z79.899 Other long term (current) drug therapy; Z79.84 Long term (current) use of oral hypoglycemic drugs; Z79.82 Long term (current) use of aspirin
CPT/HCPCS: 01810; 64721; 82962; 87426; C9803; J7120; A4216

== ENCOUNTER → 2020-11-13 06:16 | Outpatient (CLI) | payer MEDICARE, SELFPAY ==
[2020-10-28 10:27] VITALS: BMI 29.3
--- NOTE | 2020-11-13 06:23 | EKG12_ITS ---
Test Reason : Blood Pressure : / mmHG Vent. Rate : 063 BPM Atrial Rate : 063 BPM P-R Int : 206 ms QRS Dur : 102 ms QT Int : 392 ms P-R-T Axes : 063 -04 -02 degrees QTc Int : 401 ms Sinus rhythm with occasional Premature ventricular complexes Otherwise normal ECG Confirmed by GUERO STOREY, SHANTEL ([id number]), acquisition editor JAY REINOSO ([id number]) on 11/16/2020 12:49:14 PM Referred By: Santino Sarah Confirmed By:SHANTEL JACK MD
--- NOTE | 2020-11-13 17:56 | STRESSREP ---
Stress Test Report Pharmacologic myocardial perfusion stress test. 75-year-old man with a history of diabetes mellitus and chest discomfort. Stress protocol: Resting EKG demonstrates normal sinus rhythm with a rate of 63 bpm frequent premature ventricular complexes are noted. Resting blood pressure is 140/70 mmHg. 0.4 mg of regadenoson was infused per usual protocol followed by rapid intravenous saline flush injection continuous EKG monitoring was performed. The maximum heart rate attained was 83 bpm which was 58% of maximum predicted heart rate the maximum workload was 1 metabolic equivalent. At rest there were no ST or T wave changes noted to suggest abnormal flow reserve and at peak infusion nonspecific ST changes were noted. No clinical angina was noted the final blood pressure was 124/62 mmHg. Myocardial perfusion protocol. 13.8 mCi of technetium 99m sestamibi was injected at rest. 0.4 mg of regadenoson was infused per usual protocol. At peak infusion 43.2 mCi of technetium 99m sestamibi was injected stress images were obtained stress and rest images were reconstructed and compared in the short axis vertical long and horizontal long axis. Gated images were also obtained. Perfusion SPECT analysis: Review of the stress images demonstrated normal cardiac silhouette size. There is some GI attenuation artifact noted. There is however an area in the mid inferior wall with reduced perfusion on the stress images with improved perfusion on the resting images. The rest of the milian appear to be normally perfused. The above is suggestive of inferior ischemia. Gated SPECT analysis: The gated ejection fraction is 51%. Conclusion: Abnormal pharmacologic myocardial perfusion stress test with evidence of inferior ischemia. Preserved ejection fraction.
== END ==
PROVIDERS: PCP Family Medicine; Referring Provider Nurse Practitioner Family; Visit Provider Nurse Practitioner Family
DX: R07.9 Chest pain, unspecified (principal); I25.10 Atherosclerotic heart disease of native coronary artery without angina pectoris
CPT/HCPCS: 78452; 93005; 93017; A9500; A4216; J2785

== ENCOUNTER 2020-12-15 08:42 | Day surgery (SDC) | payer MEDICARE, SELFPAY ==
[2020-11-23 15:01] VITALS: BMI 28.3
--- NOTE | 2020-11-23 16:12 | RAD_ITS ---
STUDY: X-RAY CHEST REASON FOR EXAM: Male, 75 years old. CAD TECHNIQUE: PA and lateral views of the chest. COMPARISON: 06/29/2018 FINDINGS: The lungs are clear and expanded. There is no demonstrated pleural abnormality. Normal size heart. Normal mediastinum and isidro. Normal visualized pulmonary arteries. Normal visualized aortic arch and descending thoracic aorta. There are diffuse degenerative changes of the visualized thoracic spine. Normal visualized ribs, clavicles, and shoulders. There is no demonstrated abnormality of the visualized soft tissue structures of the upper abdomen. RAD/Chest PA and Lateral IMPRESSION: No acute cardiopulmonary process. Electronically Signed: Brayan Devlin MD (Brooks) at 14:04 EDT , Service support ,
[2020-12-03 10:37] LABS: Absolute Lymphocyte Count 1.87 X10^3/uL (0.83-4.51); Absolute Neutrophil Count 3.8 X10^3/uL (2.0-7.7); Basophil# 0.02 X10^3/uL; Basophil% 0.3 % (0-1); Eosinophil# 0.35 X10^3/uL; Eosinophils% 5.1 % (0-5); Hematocrit 34.9 % (40-54); Hemoglobin 11.8 g/dL (13.0-16.5); Lymphocyte # 1.87 X10^3/ul (0.83-4.51); Lymphocyte % 27.1 % (19-41); Mean Corp Hgb Conc 33.8 g/dL (32-36); Mean Corpuscular Hgb 30.2 pg (27.0-32.0); Mean Corpuscular Volume 89.3 fL (80-94); Mean Platelet Vol. 9.1 fl (6.2-12.0); Monocyte# 0.83 X10^3/uL; NRBC Flagged by Analyzer 0 % (0-5); Neutrophil # 3.82 X10^3/uL (2.7-7.7); Neutrophil % 55.2 % (47-70); Platelet Count 283 K/mm3 (150-450); RBC Distribution Width CV 12.3 % (11.6-14.6); RBC Distribution Width SD 39.5 fl (35.1-43.9); Red Blood Count 3.91 M/mm3 (4.6-6.2); White Blood Count 6.9 K/mm3 (4.4-11.0)
[2020-12-03 10:49] LABS: International Normalized Ratio 1.1; Prothrombin Time (Protime)PT. 13.4 SECONDS (11.7-14.9)
[2020-12-03 10:51] LABS: Partial Thromboplast Time 29.3 Seconds (24.1-36.2)
[2020-12-03 11:08] LABS: AST(SGOT) 17 U/L (15-37); Alanine Aminotransfer ALT/SGPT 28 U/L (16-61); Albumin, Serum 3.8 g/dL (3.2-5.0); Alkaline Phosphatase 24 U/L (45-117); Anion Gap 7 (5-15); BUN 22 mg/dL (7-18); BUN/Creat Ratio 22.2 RATIO (10-20); Bilirubin, Direct 0.12 mg/dL (0.00-0.30); Chloride 105 mmol/L (98-107); Cholesterol 112 mg/dL (200); Creatinine, Serum 0.99 mg/dL (0.70-1.30); EST Glomerular Filtration Rate 78 mL/min (>60); Est Glom Filt Rate - Afr Amer 94 mL/min (>60); Globulin 3.4 g/dL (2.2-4.2); Glucose 120 mg/dL (74-106); High Density Lipoprotein 30 mg/dL; Potassium 3.9 mmol/L (3.5-5.1); Protein, Total 7.2 g/dL (6.4-8.2); Sodium Level 138 mmol/L (136-145); Triglycerides 123 mg/dL; Very Low Density Lipoprotein 25 mg/dL (5-40)
[2020-12-14 07:02] VITALS: BMI 28.3
--- NOTE | 2020-12-14 16:41 | HP.PCM_ITS ---
History and Physical Date of Admission: 12/15/20 [facility] [address] [place] [address] [phone] OFFICE VISITDate of Service: 11/23/20 MR#:[id number]: TULIO CABRERA ARep #:[id number] Provider:Dr. Thanh Carrillo MDAge/Sex: 75/M Location:[facility] [place] HPI HPI History of Present Illness Surgical H&P: Yes Details: This is a 75-year-old white male with a past cardiovascular history of underlying CAD status [id number] superimposed upon hyperlipidemia, hypertension, diabetes mellitus who presents for concerns of exertional angina pectoris and an abnormal stress nuclear imagin g study. He has previously been followed by my former colleague Dr. Negro Domingo. He states when he goes up an incline he feels a chest pressure/discomfort. It does not necessarily radiate out of his chest. It does not necessarily have associated nausea, emesis, diaphoresis, or dyspnea. He states when he stops and rests he will feel better. This does not happen when he is resting and it does not happen at night. He has been attributing it to other medical issues in the past including having COVID-19 in 2019. He recently underwent evaluation with a pharmacologic stress nuclear imaging study on 11-13-20. According to the report he had evidence of inferior ischemia. His LVEF was reported at 51%. Intake Vital Signs 11/23/20 14:37 11/23/20 15:01 Height 5 ft 10 in Weight: 197 lb BMI 29.3 28.3 BP 138/68 H Blood Pressure Location Lt brachial Position Sitting Respiration 16 Pulse 68 Pulse Source Auscultation Intake Visit Reasons: ABN stress Glass Etcher Required: No Accompanied by: None Is patient in pain?: No Allergies prednisone Adverse Reaction (Severe, Verified 11/23/20 15:03) Severe htn and glucose elevation tetanus and diphtheria toxoids Adverse Reaction (Verified 11/23/20 15:03) Upset Stomach Medications aspirin 81 mg PO DAILY 06/06/17 [History Confirmed 11/23/20] fwcriszcqdw-N1-Cjfosidpo serr 1 ea PO BID 06/06/17 [History Confirmed 11/23/20] magnesium oxide 250 mg PO DAILY 06/06/17 [History Confirmed 11/23/20] multivitamin 1 tab PO DAILY 06/06/17 [History Confirmed 11/23/20] blood sugar diagnostic #100 ea 01/22/20 [Rx Confirmed 11/23/20] tamsulosin 0.4 mg capsule 0.4 mg PO DAILY #90 cap 01/22/20 [Rx Confirmed 11/23/20] valsartan 160 mg tablet 160 mg PO DAILY #90 tab 04/22/20 [Rx Confirmed 11/23/20] omeprazole 20 mg capsule,delayed release 20 mg PO QODAY cap 06/02/20 [History Confirmed 11/23/20] carvedilol 12.5 mg tablet 6.25 mg PO BID tab 06/03/20 [History Confirmed 11/23/20] metformin 1,000 mg tablet 1,000 mg PO BID #180 tab 07/29/20 [Rx Confirmed 11/23/20] glipizide 5 mg tablet 5 mg PO DAILY #90 tablet 07/31/20 [Rx Confirmed 11/23/20] blood sugar diagnostic #180 each 08/06/20 [Rx Confirmed 11/23/20] acetaminophen-codeine 1 - 2 tablet PO Q6H PRN PRN #15 tab 08/28/20 [Rx Confirmed 11/23/20] amlodipine 5 mg tablet 5 mg PO DAILY 09/28/20 [History Confirmed 11/23/20] hydrochlorothiazide 25 mg tablet 25 mg PO DAILY #90 tab 10/28/20 [Rx Confirmed 11/23/20] simvastatin 20 mg tablet 20 mg PO QHS #90 tab 10/28/20 [Rx Confirmed 11/23/20] dulaglutide 1.5 mg/0.5 mL subcutaneous pen injector 0.75 mg SUBCUT QWEEK ml 11/23/20 [History] insulin glargine U-300 conc 300 unit/mL (3 mL) subcutaneous pen 36 unit SUBCUT QPM ml 11/23/20 [History Confirmed 11/23/20] [facility] Medical History (Updated 11/23/20 @ 15:[address] Thanh Carrillo MD) Abnormal stress test Angina pectoris Arthritis Atherosclerotic heart disease of [place] coronary artery without angina pectoris Diabetes mellitus type II, controlled Essential hypertension Hx-TIA (transient ischemic attack) (03/04/18) Hyperlipidemia Left ventricular hypertrophy Surgical History History of carpal tunnel surgery of right wrist History of esophageal dilatation History of hernia repair History of nasal surgery Stented coronary artery (06/28/06) Family History Mother Hypertension Father Myocardial infarction Pancreatic cancer Brother Pancreatic cancer Brother Liver cancer Brother Non-Hodgkin lymphoma Social History Smoking Status: Former smoker how long ago did patient quit smoking: Quit in 1972 alcohol intake: never substance use type: does not use caffeine: No what type of physical activity do you participate in: walking frequency: 5-6 times per week ROS Const Const: Positive for fatigue; Negative for weakness, headache(s), frequent falls, difficulty sleeping or excessive sweating Eyes Eyes: Negative for loss of peripheral vision, transient loss of vision, blurry vision, double vision or tunnel vision ENT ENT: Negative for headache(s), dizziness, Nosebleed/epistaxis or balance problems Cardio Chest Pain: Yes Frequency: other (Only when walking up hill) Character: tightness Onset: other (With walking uphill only) Location: mid sternal, left chest and right chest Duration: continuous (Continuous with walking uphill) Relieving: rest (Or slowing down) Palpitations: No Edema: None Muscle aches with walking: None Resp Respiratory: Negative for SOB with activity, SOB at rest, SOB orthopnea\SOB lying down, Cough or paroxysmal nocturnal dyspnea GI GI: Negative nausea, vomiting, heartburn or black,tarry stools : Negative for hematuria Musc Musc: Negative for muscle aches/ myalgia, muscle weakness, joint pain or balance problems Skin Skin: Negative non-healing lesions, rash or unusual bruising Neuro Neuro: Positive for lightheadedness (When first started on Trulicity); Negative for dizziness, near syncope, syncope, frequent falls, headache(s), weakness, blurry vision, double vision or lack of coordination Nhan Hematologic/Lymphatic: Negative for easy bleeding or easy bruising Endo Endo: Positive for fatigue; Negative for excessive sweating or increased thirst/drinking Psych Psych: Negative for anxiety or depression Allergy Allergy/Immunology: Negative for hives and Negative for rash Cardiology Exam Const Appearance: cooperative, healthy appearing, comfortable, no acute distress, well developed and well groomed Nutritional Appearance: overweight Orientation: alert, awake and oriented x3 Head Head: normal to inspection, normocephalic and atraumatic Ears: hearing grossly normal bilaterally Nose: external nose normal Face and Sinus: face symmetric Eyes Eyelids: eyelids normal Conjunctivae: conjunctivae normal Pupils: PERRL EOM: EOM intact bilaterally Neck Neck: normal visual inspection and full ROM Carotids: normal carotid upstroke Chest Chest inspection: normal inspection of the chest, symmetric chest movement and normal respiratory effort Auscultation: Bilateral: Clear to Auscultation Cardio Palpation: normal PMI Rate: regular rate Rhythm: regular rhythm Heart sounds: S1 normal and S2 normal GI GI: normal to inspection, soft and bowel sounds present Neuro General: patient alert, patient awake, patient oriented x3 and moves all extremities Skin Skin: no rashes or lesions noted Extremities Pulses: Normal: Right Radial Pulse and Left Radial Pulse Lower Extremity Edema: None: Bilateral Psych Psychological: normal affect Assessment and Plan Assessment and Plan (1) Angina pectoris: Status: Acute Plan - Dr. Thanh Carrillo MD: He does have symptoms concerning for stable exertional angina pectoris. He has been on medical management. At the present time he has been evaluated and is found to have an abnormal pharmacologic stress nuclear imaging study. He will be asked to proceed with further evaluation with diagnostic cardiac catheterization as he is already been on medical management. The procedure and risk were discussed with him. He was agreeable to this approach. In anticipation of this he will be placed on additional medical therapy with clopidogrel/Plavix 75 mg daily. (2) Abnormal stress test: Status: Acute Plan - Dr. Thanh Carrillo MD: His stress test is as noted. Again he has symptoms despite being on medical management. He will proceed with further medical therapy and evaluation as described above. (3) Atherosclerotic heart disease of [place] coronary artery without angina pectoris: Status: Chronic Qualifiers: [place] vs. transplanted heart: [place] heart Qualified Code(s): I25.10 - Atherosclerotic heart disease of [place] coronary artery without angina pectoris Comment: Taxus DEBORAH to 90% stenosis in proximal LAD per Dr. Woody Jolly. (10-20% left main, 35-40% distal LAD, 25% proximal stneosis in LCX, and RCA only minimal irregularities). Plan - Dr. Thanh Carrillo MD: He does have a history of CAD as outlined by his previous cardiac catheterization procedure. Based upon his history, his ongoing symptoms, and a stress test, he will be asked to have further evaluation as described above. (4) Stented coronary artery: Status: Chronic Comment: [place] to 90% stenosis in proximal LAD per Dr. Woody Jolly. (10-20% left main, 35-40% distal LAD, 25% proximal stneosis in LCX, and RCA only minimal irregularities). Plan - Dr. Thanh Carrillo MD: His previous PCI from 2006 was reviewed. He will continue medical therapy and follow-up as described. (5) Hyperlipidemia: Status: Chronic Qualifiers: Hyperlipidemia type: unspecified Qualified Code(s): E78.5 - Hyperlipidemia, unspecified Plan - Dr. Thanh Carrillo MD: He will continue risk factor modification medical management. In the interim he will have fasting lipid profile to compare to the study of approximately 1 year ago. (6) Essential hypertension: Status: Chronic Plan - Dr. Thanh Carrillo MD: His blood pressure appears to be under reasonably good control. He will continue medical management. Plan Details Additional Comments: Thank you for allowing me to participate in the care of your patient. Please don't hesitate to call if any issues arise. This note was generated using a voice recognition system and there may be incorrect words, spelling or punctuation that were not noted when reviewing the office note prior to saving. Follow Up: 3 Months (PFM) COVID (Procedure Consent) Procedure Criteria Procedure Criteria: Yes Elective The surgeon/proceduralist and patient have discussed in detail the risk of exposure to and/or potential harm posed by the COVID-19 virus with having a surgery/procedure at this time versus the risk of delaying the surgery/procedure. It is not possible to know either the risk of delaying the surgery or procedure or chance of getting an infection with perfect accuracy, but a joint decision was made between the patient and the surgeon/proceduralist to proceed at this time with the scheduled surgery/procedure as indicated on the consent form. Coding Level of Care Code Off vis,est,level 5 Diagnoses Angina pectoris I20.9 Abnormal stress test R94.39 Atherosclerotic heart disease of [place] coronary artery without angina pectoris I25.10 [place] vs. transplanted heart: [place] heart Stented coronary artery Z95.5 Hyperlipidemia E78.5 Hyperlipidemia type: unspecified Essential hypertension I10 Coding Level of Care Code Off vis,est,level 5 Diagnoses Angina pectoris I20.9 Abnormal stress test R94.39 Atherosclerotic heart disease of [place] coronary artery without angina pectoris I25.10 [place] vs. transplanted heart: [place] heart Stented coronary artery Z95.5 Hyperlipidemia E78.5 Hyperlipidemia type: unspecified Essential hypertension I10 Supplemental Info Supplemental Information Supplemental Information Echocardiogram 2018 demonstrates: Mild concentric left ventricular hypertrophy. The estimated ejection fraction is 65 %. Stage 1 diastolic dysfunction. Trivial mitral valve insufficiency. Bubble contrast study negative for right to left interatrial shunt. Unable to estimate RV systolic pressure due to inadequate jet, pulmonary artery pressure probably normal. There is no comparison study available. Stress test 2019 demonstrates:The estimated ejection fraction is 65 %. Normal, adequate, treadmill echocardiogram. Negative for ischemia by EKG and echocardiographic criteria. No anginal symptoms noted. Rare PVCs noted during exercise and into recovery. One ventricular couplet during recovery. Hypertensive blood pressure response to exercise. Above average exercise capacity for age. Test terminated due to the attainment of target heart rate and dyspnea. Final LVEF is 75%. No complications. Stress Test Report: 11-13-2020 Pharmacologic myocardial perfusion stress test. 75-year-old man with a history of diabetes mellitus and chest discomfort. Stress protocol: Resting EKG demonstrates normal sinus rhythm with a rate of 63 bpm frequent premature ventricular complexes are noted. Resting blood pressure is 140/70 mmHg. 0.4 mg of regadenoson was infused per usual protocol followed by rapid intravenous saline flush injection continuous EKG monitoring was performed. The maximum heart rate attained was 83 bpm which was 58% of maximum predicted heart rate the maximum workload was 1 metabolic equivalent. At rest there were no ST or T wave changes noted to suggest abnormal flow reserve and at peak infusion nonspecific ST changes were noted. No clinical angina was noted the final blood pressure was 124/62 mmHg. Myocardial perfusion protocol. 13.8 mCi of technetium 99m sestamibi was injected at rest. 0.4 mg of regaden oson was infused per usual protocol. At peak infusion 43.2 mCi of technetium 99m sestamibi was injected stress images were obtained stress and rest images were reconstructed and compared in the short axis vertical long and horizontal long axis. Gated images were also obtained. Perfusion SPECT analysis: Review of the stress images demonstrated normal cardiac silhouette size. There is some GI attenuation artifact noted. There is however an area in the mid inferior wall with reduced perfusion on the stress images with improved perfusion on the resting images. The rest of the milian appear to be normally perfused. The above is suggestive of inferior ischemia. Gated SPECT analysis: The gated ejection fraction is 51%. Conclusion: Abnormal pharmacologic myocardial perfusion stress test with evidence of inferior ischemia. Preserved ejection fraction. 11/13/20 1801<Electronically signed by Jovanni Renae MD>Date Jovanni Renae MD Labs: LDL Cholesterol 68 mg/dL (0-130) HDL Cholesterol 28 mg/dL (40-) L Triglycerides 207 mg/dL (-199) H VLDL Cholesterol 41 mg/dL (5-40) H Diagnostics: Electrocardiogram Echocardiogram Stress Echocardiogram Stress Test NM Stress Test Chest X-Ray Pulmonary: No Data to Display 11/23/20 [id number]<Electronically signed by Thanh Carrillo MD>Date ___ Thanh Carrillo MD Cosigner Signature:Date (if applicable) CC: Dr. Christos Copeland, DO ~ I have re-examined the patient. There are no clinical changes since date of exam.
--- NOTE | 2020-12-15 11:41 | CL.D_ITS ---
Patient Name: TULIO CABRERA Study Date: 12/15/2020 Performing: Thanh Carrillo MD Ht: 70.07 inches 178 cm : 1945 Wt: 196.21 lbs 89 kg Age: 75 Gender: male BSA: 2.07 PROCEDURE(S) PERFORMED EC18-HSZ/COR/LV CLINICAL PROFILE AND INDICATIONS Indications: Worsening Angina, Suspected CAD Heart Failure: None Stress/Imaging Date: 11/13/2020tress Test with SPECT MPI: Indeterminant Angina Classification Anginal Classification w/in 2 Weeks: CCS III CAD Presentations: Stable angina. CONCLUSIONS Normal Left Ventricular End Diastolic Pressure Normal LV size, wall motion,and systolic function LVEF: by LV gram 60 % [place] Multivessel CAD Based upon RCA angiography a small RCA side branch to aorta fistula cannot be excluded RECOMMENDATIONS Medical therapy Surgery consult for coronary revascularization DESCRIPTION OF PROCEDURE The patient arrived to the procedure lab. The risks and benefits of the procedure as well as a full d escription of our services here and current unavailability of surgical backup were fully explained to the patient and/or their significant other prior to the catheterization. The Timeout was completed, verifying the correct patient and procedure. The patient's procedural site was prepped and draped in the usual fashion. Local anesthetic was given subcutaneously to right radial region with Lidocaine 2% . Using a modified Seldinger technique, arterial access was obtained via the right radial artery, a 6 Fr sheath was inserted. Left Coronary Artery selective angiography was performed in multiple views u sing a 5 Fr. 4.0 [place] catheter. Right Coronary Artery selective angiography was then performed in mu ltiple views using a 5 Fr. 4.0 [place] catheter. Left Ventriculography was performed in PAYNE projection using a 5 Fr. Pigtail catheter. LV to AO pullback pressures were then recorded.The arterial sheath was pulled and a TR Band was applied for hemostasis CORONARY ANGIOGRAPHY DOMINANCE: Right Dominant LEFT HEART ASSESSMENT Left Ventricular Ejection Fraction: by LV Gram 60 % Normal LV wall motion LEFT MAIN: proximal: 25 % Stenosis LEFT ANTERIOR DESCENDING ARTERY: PROX LAD: Severe calcification, Previously placed stent is patent MID LAD: Severe calcification, s/p stent: 75 % Stenosis CIRCUMFLEX ARTERY: Mild luminal irregularities PROX CIRC: Mild calcification RIGHT CORONARY ARTERY: PROX RCA: Severe calcification, eccentric: hazy: 75 % Stenosis MID RCA: Severe calcification, eccentric: hazy: 90 % Stenosis, eccentric: 75 % Stenosis AORTIC ROOT: Angiographically normal COMPLICATIONS No Complications PROCEDURE MEDICATIONS Versed 1 mg IV Fentanyl 50 mcg IV Oxygen: 2 L/min via nasal cannula Heparin given IA 12/15/2020 10:35:27 Verapamil 2.5mg, Ntg 100mcgs, 2000 units of Heparin given IA 12/15/2020 10:35:27 SUMMARY OF HEMODYNAMIC DATA Time AIR REST ECG 09:02:58 AO 88/52 (68) SA 10:38:00 LV 124/-14, 11 10:47:01 LV 124/-13, 6 10:47:08 LV 119/-12, 9 10:47:56 LV 125/-15, 8 10:48:02 LVp 134/-11, 9 10:48:10 AOp 125/58 (88) 10:48:15 Signed By Thanh Carrillo MD On 12/15/2020 11:40:32 AM Thanh Carrillo MD
== END 2020-12-15 12:35 | disposition home or self-care (01) ==
LOC: CLSP 08:43
PROVIDERS: PCP Family Medicine; Referring Provider Internal Medicine Cardiovascular Disease; Visit Provider Internal Medicine Cardiovascular Disease
DX: I25.118 Atherosclerotic heart disease of native coronary artery with other forms of angina pectoris (principal); I10 Essential (primary) hypertension; E11.9 Type 2 diabetes mellitus without complications; E78.5 Hyperlipidemia, unspecified; R07.89 Other chest pain; Z95.5 Presence of coronary angioplasty implant and graft; Z87.891 Personal history of nicotine dependence; Z79.82 Long term (current) use of aspirin; Z79.4 Long term (current) use of insulin; Z86.73 Personal history of transient ischemic attack (TIA), and cerebral infarction without residual deficits
CPT/HCPCS: 36415; 71046; 80048; 80061; 80076; 85025; 85610; 85730; 93458; 99152; 99153; J7040; Q9967; C1769; C1894

== ENCOUNTER → 2020-12-17 13:51 | Outpatient (CLI) | payer MEDICARE, SELFPAY ==
[2020-12-14 07:02] VITALS: BMI 28.3
[2020-12-17 16:31] LABS: Anion Gap 9 (5-15); BUN 36 mg/dL (7-18); BUN/Creat Ratio 25.2 RATIO (10-20); Calcium,Total 9.2 mg/dL (8.5-10.1); Chloride 104 mmol/L (98-107); Creatinine, Serum 1.43 mg/dL (0.70-1.30); EST Glomerular Filtration Rate 51 mL/min (>60); Est Glom Filt Rate - Afr Amer 62 mL/min (>60); Glucose 112 mg/dL (74-106); Potassium 4.1 mmol/L (3.5-5.1); Sodium Level 140 mmol/L (136-145)
== END ==
PROVIDERS: PCP Family Medicine; Referring Provider Nurse Practitioner Family; Visit Provider Nurse Practitioner Family
DX: I25.10 Atherosclerotic heart disease of native coronary artery without angina pectoris (principal); I10 Essential (primary) hypertension; E11.9 Type 2 diabetes mellitus without complications; Z95.5 Presence of coronary angioplasty implant and graft
CPT/HCPCS: 36415; 80048

== ENCOUNTER 2021-07-07 10:21 | Outpatient (CLI) | payer MEDICARE, SELFPAY ==
[2021-07-07 12:22] LABS: Hemoglobin A1c 7.6 % (3.8-5.6)
== END 2021-07-07 23:59 | disposition home or self-care (01) ==
LOC: BIMLAB 10:22
PROVIDERS: PCP Family Medicine; Referring Provider Family Medicine; Visit Provider Family Medicine
DX: E11.9 Type 2 diabetes mellitus without complications (principal)
CPT/HCPCS: 36415; 83036

== ENCOUNTER → 2021-10-20 | Outpatient (CLI) | payer MEDICARE, SELFPAY ==
[2021-10-20 12:45] LABS: Cholesterol 120 mg/dL (200); High Density Lipoprotein 30 mg/dL; Triglycerides 170 mg/dL; Very Low Density Lipoprotein 34 mg/dL (5-40)
[2021-10-20 12:48] LABS: ALB/GLOB Ratio 1.1 RATIO (0.9-2.4); AST(SGOT) 26 U/L (15-37); Alanine Aminotransfer ALT/SGPT 32 U/L (16-61); Albumin, Serum 3.6 g/dL (3.2-5.0); Alkaline Phosphatase 27 U/L (45-117); Anion Gap 6 (5-15); BUN 19 mg/dL (7-18); BUN/Creat Ratio 18.3 RATIO (10-20); Calcium,Total 9.3 mg/dL (8.5-10.1); Chloride 106 mmol/L (98-107); Creatinine, Serum 1.04 mg/dL (0.70-1.30); EST Glomerular Filtration Rate 73 mL/min (>60); Est Glom Filt Rate - Afr Amer 89 mL/min (>60); Globulin 3.4 g/dL (2.2-4.2); Glucose 116 mg/dL (74-106); Potassium 4.5 mmol/L (3.5-5.1); Sodium Level 139 mmol/L (136-145)
== END | disposition home or self-care (01) ==
LOC: BIMLAB 11:00
PROVIDERS: Nurse Practitioner Family; PCP Family Medicine; Referring Provider Family Medicine; Visit Provider Family Medicine
DX: I25.10 Atherosclerotic heart disease of native coronary artery without angina pectoris (principal); Z95.1 Presence of aortocoronary bypass graft; Z95.5 Presence of coronary angioplasty implant and graft
CPT/HCPCS: 36415; 80053; 80061; 82248

== ENCOUNTER → 2022-11-16 | Outpatient (CLI) | payer MEDICARE, SELFPAY ==
[2022-11-16 12:25] LABS: Absolute Neutrophil Count 3.1 X10^3/uL (2.0-7.7); Basophil# 0.03 X10^3/uL; Basophil% 0.5 % (0-1); Eosinophil# 0.27 X10^3/uL; Eosinophils% 4.6 % (0-5); Hematocrit 36.2 % (40-54); Lymphocyte % 30.5 % (19-41); Mean Corp Hgb Conc 33.1 g/dL (32-36); Mean Corpuscular Hgb 30.7 pg (27.0-32.0); Mean Corpuscular Volume 92.6 fL (80-94); Mean Platelet Vol. 9.4 fl (6.2-12.0); Monocyte# 0.67 X10^3/uL; Monocyte% 11.3 % (0-10); NRBC Flagged by Analyzer 0 % (0-5); Neutrophil # 3.13 X10^3/uL (2.7-7.7); Neutrophil % 52.9 % (47-70); Platelet Count 282 K/mm3 (150-450); RBC Distribution Width CV 12.3 % (11.6-14.6); RBC Distribution Width SD 41.7 fl (35.1-43.9); Red Blood Count 3.91 M/mm3 (4.6-6.2); White Blood Count 5.9 K/mm3 (4.4-11.0)
[2022-11-16 13:06] LABS: ALB/GLOB Ratio 1.1 RATIO (0.9-2.4); AST(SGOT) 25 U/L (15-37); Alanine Aminotransfer ALT/SGPT 31 U/L (16-61); Albumin, Serum 3.5 g/dL (3.2-5.0); Alkaline Phosphatase 24 U/L (45-117); Anion Gap 4 (5-15); BUN 20 mg/dL (7-18); BUN/Creat Ratio 18.2 RATIO (10-20); Calcium,Total 8.8 mg/dL (8.5-10.1); Chloride 107 mmol/L (98-107); EST Glomerular Filtration Rate 69 mL/min (>60); Est Glom Filt Rate - Afr Amer 83 mL/min (>60); Globulin 3.3 g/dL (2.2-4.2); Glucose 199 mg/dL (74-106); Potassium 4.2 mmol/L (3.5-5.1); Protein, Total 6.8 g/dL (6.4-8.2); Sodium Level 137 mmol/L (136-145)
== END | disposition home or self-care (01) ==
LOC: BIMLAB 11:24
PROVIDERS: PCP Family Medicine; Visit Provider Family Medicine
DX: I25.10 Atherosclerotic heart disease of native coronary artery without angina pectoris (principal)
CPT/HCPCS: 36415; 80053; 85025

== ENCOUNTER 2022-12-23 06:54 | Day surgery (SDC) | payer MEDICARE, SELFPAY ==
[2022-12-23] VITALS (8 sets, daily range): BP systolic 73–148; BP diastolic 50–92; PULSE 62–64; RESP 16; TEMP 36.7–36.8; O2SAT 92–97; BMI 29.1
--- NOTE | 2022-12-23 07:28 | PCM.HP.BLA ---
History and Physical Date of Admission: 12/23/22 Intake Vital Signs 11/16/2309:55 11/30/2313:44 Height 5 ft 10 in 5 ft 10 in Weight: 207 lb 8 oz 205 lb 4 oz BMI 29.7 29.4 BP 126/70 H 135/71 H Blood Pressure Location Rt brachial Rt brachial Position Sitting Sitting Respiration 18 17 Pulse 62 72 Pulse Source Monitor Monitor Temp 95.4 F L 97.5 F L Temp Source Temporal Tympanic Pulse Oximetry (%) 96 Oxygen Delivery Method room air Intake Visit Reasons: HEMORRHAGE OF ANUS Chief Complaint: 3 M FU Allergies prednisone Adverse Reaction (Severe, Verified 11/16/22 10:49) Severe htn and glucose elevationtetanus and diphtheria toxoids Adverse Reaction (Verified 11/16/22 10:49) Upset Stomach Medications aspirin 81 mg tablet,delayed release 81 mg PO DAILY 06/06/17 [History Confirmed 11/30/22] glucosamine RKp-H7-Wzfkcbzfh rufus 1,500 mg-400 unit-100 mg tablet 1 ea PO BID 06/06/17 [History Confirmed 11/30/22] magnesium oxide 250 mg PO DAILY 06/06/17 [History Confirmed 11/30/22] multivitamin 1 tab PO DAILY 06/06/17 [History Confirmed 11/30/22] blood sugar diagnostic (Contour Test Strips) #100 ea 01/22/20 [Rx Confirmed 11/30/22] curalin 1 cap PO BID 08/25/21 [History Confirmed 11/30/22] pen needle, diabetic 32 gauge x 5/32 (BD Torri 2nd Gen Pen Needle) #50 ea 10/20/21 [Rx Confirmed 11/30/22] acetaminophen 500 mg tablet (Tylenol Extra Strength) 500 mg PO Q8H PRN 05/04/22 [History Confirmed 11/30/22] blood sugar diagnostic (OneTouch Verio test strips) #180 ea 05/04/22 [Rx Confirmed 11/30/22] loratadine 10 mg tablet (Allergy Relief (loratadine)) 10 mg PO DAILY 05/04/22 [History Confirmed 11/30/22] tamsulosin 0.4 mg capsule (Flomax) 0.4 mg PO DAILY #90 caps 05/04/22 [Rx Confirmed 11/30/22] glipizide 5 mg tablet, extended release 24 hr 5 mg PO DAILY #90 tabs 08/17/22 [Rx Confirmed 11/30/22] metformin 1,000 mg tablet 1,000 mg PO BID #180 tabs 08/17/22 [Rx Confirmed 11/30/22] simvastatin 20 mg tablet 20 mg PO QHS #90 tabs 08/17/22 [Rx Confirmed 11/30/22] amlodipine 5 mg tablet 5 mg PO DAILY #90 tabs 09/02/22 [Rx Confirmed 11/30/22] carvedilol 6.25 mg tablet 6.25 mg PO BID #180 tabs 11/16/22 [Rx Confirmed 11/30/22] insulin glargine U-300 conc 300 unit/mL (3 mL) subcutaneous pen 72 unit (0.24 mL) subcut QPM #6 mL 11/16/22 [Rx Confirmed 11/30/22] valsartan 160 mg tablet 160 mg PO BID #180 tabs 11/16/22 [Rx Confirmed 11/30/22] PFSH Medical History Abnormal stress test Angina pectoris Arthritis Atherosclerotic heart disease of [place] coronary artery without angina pectoris Diabetes mellitus type II, controlled Essential hypertension Hx-TIA (transient ischemic attack) (03/04/18) Hyperlipidemia Left ventricular hypertrophy Surgical History History of carpal tunnel surgery of right wrist History of coronary artery bypass surgery (~12/30/20) History of esophageal dilatation History of hernia repair History of nasal surgery Stented coronary artery (06/28/06) Family History (Updated 11/30/22 @ 14:43 by Debby Glover) Mother HypertensionFather Myocardial infarction Pancreatic cancerBrother Pancreatic cancer Colon cancerBrother Liver cancerBrother Non-Hodgkin lymphoma Social History Smoking Status: Former smoker how long ago did patient quit smoking: Quit in 1972 alcohol intake: never substance use type: does not use caffeine: No what type of physical activity do you participate in: walking frequency: 5-6 times per week HPI HPI HPI: Patient is a 77-year-old male here with rectal bleeding. He reports he has been seeing blood in his stool for a few months. He says his brother was recently diagnosed with colon cancer. He denies abdominal pain unless he is having a lot of gas. ROS General General: No weight change, appetite, fatigue, colon cancer, breast cancer or weakness HEENT HEENT: No difficulty swallowing, eye injury, eye surgery, swollen glands or hoarseness Endo Endocrine: Yes diabetes mellitus; No thyroid disease, thyroid cancer, Hair loss, heat intolerance or cold intolerance Skin Skin: No rash or changing moles Breast Breast: No left breast lump, right breast lump, nipple discharge, breast pain, abnormal mammogram, abnormal US or breast enlargement Musc Musculoskeletal: No back problems, arthritis, rheumatoid arthritis, gout or joint pain Cardio Cardiovascular: Yes heart disease, high blood pressure and heart stent; No murmur, pacemaker, atrial fibrillation, heart attack, palpitations, shortness of breat with exertion or chest pain Psych Psychiatric: No depression, anxiety or hearing voices Resp Respiratory: No shortness of breath, No sleep apnea, No cough, No COPD, No asthma, No emphysema and No wheezing Gastro Gastrointestinal: No abdominal pain, No nausea or vomiting, Yes diarrhea, No constipation, Yes blood in stool, Yes acid reflux, Yes hemorrhoids, No ulcers, No gallbladder problem and No black,tarry stools Nhan Hematologic: No blood thinners, No blood disorders, No bleeding, No anemia and No blood clots Neuro Neurologic: No system reviewed and no additional complaints, except as documented, No as per HPI, No abnormal gait, No abnormal hearing, No abnormal movements, No abnormal speech, No behavioral changes, No burning sensations, No confusion, No convulsions, No disequilibrium, No dizziness, No localized weakness, No frequent falls, No headache(s), No lack of coordination, No loss of vision, No memory loss, Yes numbness, No other visual disturbances, No radicular pain, No restless legs, No sensory deficit, No syncope, Yes tingling, No tremor(s), No weakness and No other Exam Const General: cooperative Orientation: alert and oriented x3 HENMT Head: normal to inspection Neck Neck: normal visual inspection and full ROM Chest Chest palpation & inspection: normal inspection of the chest Resp Effort & Inspection: normal respiratory effort Auscultation: clear to auscultation bilaterally Cardio Rate: regular rate Rhythm: regular rhythm GI Inspection: non-distended Palpation: soft and nontender Skin General: no rashes or lesions noted Neuro General: patient alert and patient oriented x3 Extrem General: full ROM Psych Appearance: grossly normal Mental Status: mental status grossly normal Assessment and Plan Assessment and Plan (1) Rectal bleeding: Status: Acute Plan: Patient has been seeing blood in his stool and he recently had a brother diagnosed with colon cancer. He is here for colonoscopy. I explained endoscopy in detail to the patient. I explained the risks including but not limited to stroke or heart attack with anesthesia, perforation of the GI tract, bleeding, infection. I explained that any of these could necessitate further emergency surgery. The patient understands and all questions were answered sufficiently. The patient wishes to proceed with procedure. I have asked him to hold his aspirin 5 days prior to the procedure and he was given instructions on how to alter his diabetic medications on the day of the procedure. Carlo Brambila MD Pager: [facility] [address] [place] [address], [address] [place] [address] Office: I have examined the patient and the H&P has been reviewed. There are no clinical changes since date of exam.
[2022-12-23] MEDS: Lactated Ringers 1,000 ML 15 ML IV (07:40)
--- NOTE | 2022-12-23 08:00 | COLBX_PTH ---
PATIENT: TULIO CABRERA LOC: EN U#:[id number] AGE/SX: 77/M ROOM: RE12/23/[address]: Dr. Carlo Brambila MD : 1945 BED: DIS: 12/23/2022 SPEC #: [id number] RECD: 12/23/22 14:04 STATUS: CURRY REMattie #: [id number] LARS: 12/23/22 08:[address]: Carlo Brambila DEPT: SURGICAL PATHOLOGY RECD BY: Danielle Mello ENTERED: 12/26/22 07:28 SP TYPE: COLON BX OTHR DR: Dr. Christos Copeland, DO Tissues: Cecum, NOS Procedures: Surgery Specimen Level IV HEADER OPERATION: Colonoscopy PRE-OP DIAGNOSIS: Rectal bleeding TISSUE SUBMITTED: Cecal polyp biopsy MICROSCOPIC DIAGNOSIS Cecal polyp, biopsy: No pathologic change. See comment. AM:heavenly 12/27/2022 COMMENT Neither hyperplastic nor adenomatous change is identified. Clinical correlation is suggested. MICROSCOPIC DESCRIPTION Slides are reviewed. GROSS DESCRIPTION Received in fixative is one container labeled with the patient's name and designated cecal polyp. The specimen consists of multiple irregular fragments of light brooke soft tissue that in aggregate measure 0.6 x 0.5 x 0.1 cm. The specimen is totally submitted in one cassette. / AM:heavenly 12/26/2022 TC:5 CPT: 82000
[2022-12-23 08:14] LABS: Bedside Glucose 179 mg/dL (74-106)
--- NOTE | 2022-12-23 08:40 | OP.CCLET_ITS ---
12/23/2022 Christos Copeland Re : Colonoscopy procedure for Manpreet Ruvalcaba Dear Dr. Copeland This procedure was performed on Friday, December 23, 2022. My impressions and recommendations are as follows: Impressions : - One large polyp at the ileocecal valve. Biopsied. Recommendations : - Discharge patient to home. - Resume previous diet. - Continue present medications. - Await pathology results. - Repeat colonoscopy in 6 months because the bowel preparation was poor. My findings are described in the full procedure note, which is enclosed. If I can be of further assistance, please feel free to contact me at Doctor phone number(s): , Work: . Sincerely, Carlo Brambila MD 12/23/2022 8:39:02 AM This report has been signed electronically.
--- NOTE | 2022-12-23 08:40 | OP.COLON_ITS ---
Patient Name: Manpreet Ruvalcaba Procedure Date: 12/23/2022 7:49 AM Date of : 1945 Age: 77 Procedure: Colonoscopy Indications: Rectal bleeding Providers: Carlo Brambila MD Referring MD: Christos Copeland Medicines: Monitored Anesthesia Care Patient Profile: This is a 77 year old male. Refer to note in patient chart for documentation of history and physical. Last Colonoscopy: none. The patient's first colonoscopy is today. Complications: No immediate complications. Estimated blood loss: Minimal. Procedure: Pre-Anesthesia Assessment: - Prior to the procedure, a History and Physical was performed, and patient medications and allergies were reviewed. The patient's tolerance of previous anesthesia was also reviewed. The risks and benefits of the procedure and the sedation options and risks were discussed with the patient. All questions were answered, and informed consent was obtained. Prior Anticoagulants: The patient has taken no anticoagulant or antiplatelet agents. After reviewing the risks and benefits, the patient was deemed in satisfactory condition to undergo the procedure. After I obtained informed consent, the scope was passed under direct vision. Throughout the procedure, the patient's blood pressure, pulse, and oxygen saturations were monitored continuously. The colonoscope was introduced through the anus and advanced to the cecum, identified by appendiceal orifice and ileocecal valve. The ileocecal valve, appendiceal orifice, and rectum were photographed. The quality of the bowel preparation was adequate to identify polyps greater than 5 mm in size. Scope In: 8:04:56 AM Scope Withdrawal Time 0 hours 18 minutes 59 seconds Scope Out: 8:35:22 AM Total Procedure Duration Time 0 hours 30 minutes 26 seconds Findings: A large polyp was found in the ileocecal valve. Biopsies were taken with a cold forceps for histology. Impression: - One large polyp at the ileocecal valve. Biopsied. Recommendation: - Discharge patient to home. - Resume previous diet. - Continue present medications. - Await pathology results. - Repeat colonoscopy in 6 months because the bowel preparation was poor. Procedure Code(s): --- Professional --- 19730, Colonoscopy, flexible; with biopsy, single or multiple Diagnosis Code(s): --- Professional --- D12.0, Benign neoplasm of cecum K62.5, Hemorrhage of anus and rectum CPT copyright 2021 [employer]. All rights reserved. The codes documented in this report are preliminary and upon quality rep review may be revised to meet current compliance requirements. Carlo Brambila MD 12/23/2022 8:39:02 AM This report has been signed electronically. Number of Addenda: 0 Note Initiated On: 12/23/2022 7:49 AM
== END 2022-12-23 09:51 | disposition home or self-care (01) ==
LOC: EN 06:57 → AC 06:57
PROVIDERS: PCP Family Medicine; Referring Provider Family Medicine; Visit Provider Surgery
PROC: 0DJD8ZZ Inspection of Lower Intestinal Tract, Via Natural or Artificial Opening Endoscopic (ICD-10-PCS; CPT 45378; principal; 2022-12-23 07:55)
DX: K63.5 Polyp of colon (principal); E11.9 Type 2 diabetes mellitus without complications; Z79.4 Long term (current) use of insulin; K62.5 Hemorrhage of anus and rectum; I10 Essential (primary) hypertension; I25.10 Atherosclerotic heart disease of native coronary artery without angina pectoris; Z79.84 Long term (current) use of oral hypoglycemic drugs; E78.5 Hyperlipidemia, unspecified; Z79.82 Long term (current) use of aspirin; Z79.899 Other long term (current) drug therapy; Z86.73 Personal history of transient ischemic attack (TIA), and cerebral infarction without residual deficits; Z95.1 Presence of aortocoronary bypass graft; Z95.5 Presence of coronary angioplasty implant and graft; Z87.891 Personal history of nicotine dependence; Z80.0 Family history of malignant neoplasm of digestive organs
CPT/HCPCS: 45380; 82962; 88305; J7120; J2405

== ENCOUNTER 2023-08-04 06:15 | Day surgery (SDC) | payer MEDICARE, SELFPAY ==
[2023-08-04 06:46] VITALS: BP 146/70; PULSE 61; RESP 16; TEMP 36.2; O2SAT 97; BMI 29.7
[2023-08-04] MEDS: Lactated Ringers 1,000 ML 15 ML IV (06:54)
--- NOTE | 2023-08-04 06:55 | HP.PCM_ITS ---
History and Physical Date of Admission: 08/04/23 Intake Vital Signs 03/01/2310:28 06/07/2407:34 06/16/2411:52 Height 5 ft 10 in 5 ft 10 in 5 ft 10 in Weight: 207 lb 206 lb 8 oz 205 lb BMI 29.7 29.6 29.4 BP 124/68 H 126/80 H 130/66 H Blood Pressure Location Lt brachial Lt brachial Rt brachial Position Sitting Sitting Sitting Respiration 16 16 18 Pulse 68 69 77 Pulse Source Monitor Monitor Monitor Temp 98.0 F 97.0 F L 97.3 F L Temp Source Temporal Temporal Temporal Pulse Oximetry (%) 96 98 93 Oxygen Delivery Method room air room air room air Intake Visit Reasons: 6 month C-Scope issues with prep Chief Complaint: 6 month C-Scope follow up Steel Tester Required: No Is patient in pain?: No Allergies prednisone Adverse Reaction (Severe, Verified 06/16/23 12:54) Severe htn and glucose elevationtetanus and diphtheria toxoids Adverse Reaction (Verified 06/16/23 12:54) Upset Stomach Medications aspirin 81 mg tablet,delayed release 81 mg PO DAILY 06/06/17 [History Confirmed 06/16/23] glucosamine ZXq-H9-Sxnispisy rufus 1,500 mg-400 unit-100 mg tablet 1 ea PO BID 06/06/17 [History Confirmed 06/16/23] magnesium oxide 250 mg PO DAILY 06/06/17 [History Confirmed 06/16/23] multivitamin 1 tab PO DAILY 06/06/17 [History Confirmed 06/16/23] blood sugar diagnostic (Contour Test Strips) #100 ea 01/22/20 [Rx Confirmed 06/16/23] curalin 1 cap PO BID 08/25/21 [History Confirmed 06/16/23] pen needle, diabetic 32 gauge x 5/32 (BD Torri 2nd Gen Pen Needle) #50 ea 10/20/21 [Rx Confirmed 06/16/23] acetaminophen 500 mg tablet (Tylenol Extra Strength) 500 mg PO Q8H PRN pain 05/04/22 [History Confirmed 06/16/23] loratadine 10 mg tablet (Allergy Relief (loratadine)) 10 mg PO DAILY 05/04/22 [History Confirmed 06/16/23] tamsulosin 0.4 mg capsule (Flomax) 0.4 mg PO DAILY #90 caps 05/04/22 [Rx Confirmed 06/16/23] glipizide 5 mg tablet, extended release 24 hr 5 mg PO DAILY #90 tabs 08/17/22 [Rx Confirmed 06/16/23] valsartan 160 mg tablet 160 mg PO BID #180 tabs 11/16/22 [Rx Confirmed 06/16/23] esomeprazole magnesium 20 mg capsule,delayed release 20 mg PO DAILY 03/01/23 [History Confirmed 06/16/23] metformin 1,000 mg tablet 1,000 mg PO BID #180 tabs 03/01/23 [Rx Confirmed 06/16/23] simvastatin 20 mg tablet 20 mg PO QHS #90 tabs 03/01/23 [Rx Confirmed 06/16/23] insulin glargine U-300 conc 300 unit/mL (3 mL) subcutaneous pen 72 unit (0.24 mL) subcut QPM #24 mL 03/07/23 [Rx Confirmed 06/16/23] carvedilol 12.5 mg tablet 6.25 mg (1/2 x 12.5 mg) PO BID #180 tabs 03/22/23 [Rx Confirmed 06/16/23] amlodipine 5 mg tablet 5 mg PO DAILY this is a dose increase #90 tabs 06/07/23 [Rx Confirmed 06/16/23] blood sugar diagnostic (OneTouch Verio test strips) #180 ea 06/07/23 [Rx Confirmed 06/16/23] furosemide 20 mg tablet 20 mg PO DAILY PRN edema #90 tabs 06/07/23 [Rx Confirmed 06/16/23] glucosamine sulfate 500 mg tablet (Cidatrine (glucosamine)) 500 mg PO DAILY 06/07/23 [History Confirmed 06/16/23] [facility] Medical History Abnormal stress test Angina pectoris Arthritis Atherosclerotic heart disease of [place] coronary artery without angina pectoris Cardiology follow-up encounter Diabetes Diabetes mellitus type II, controlled Essential hypertension Former smoker Gastric reflux High cholesterol History of echocardiogram History of hiatal hernia History of stress test Hx-TIA (transient ischemic attack) (03/04/18) Hyperlipidemia Hypertension Insulin dependent diabetes mellitus Left ventricular hypertrophy Leg cramps Prostate disease Wears dentures Wears glasses Surgical History History of cardiac catheterization History of carpal tunnel surgery of right wrist History of coronary artery bypass surgery (~12/30/20) History of esophageal dilatation History of hernia repair History of nasal surgery Stented coronary artery (06/28/06) Family History Mother HypertensionFather Myocardial infarction Pancreatic cancerBrother Pancreatic cancer Colon cancerBrother Liver cancerBrother Non-Hodgkin lymphomaOther Diabetes Social History Smoking Status: Former smoker how long ago did patient quit smoking: Quit in 1972 alcohol intake: never substance use type: does not use caffeine: No what type of physical activity do you participate in: walking frequency: 5-6 times per week HPI HPI HPI: The patient is a 77-year-old male here for repeat colonoscopy. He had his last colonoscopy 6 months ago and the prep was inadequate to identify small polyps. I was able to make it to the cecum and biopsy a large polyp which came back benign. Patient reports no blood in the stool or abdominal pain since his last colonoscopy. ROS General General: No weight change, appetite, fatigue, colon cancer, breast cancer or weakness HEENT HEENT: No difficulty swallowing, eye injury, eye surgery, swollen glands or hoarseness Endo Endocrine: Yes diabetes mellitus; No thyroid disease, thyroid cancer, Hair loss, heat intolerance or cold intolerance Skin Skin: No rash or changing moles Breast Breast: No left breast lump, right breast lump, nipple discharge, breast pain, abnormal mammogram, abnormal US or breast enlargement Musc Musculoskeletal: No back problems, arthritis, rheumatoid arthritis, gout or joint pain Cardio Cardiovascular: Yes heart disease, high blood pressure and heart stent; No murmur, pacemaker, atrial fibrillation, heart attack, palpitations, shortness of breat with exertion or chest pain Psych Psychiatric: No depression, anxiety or hearing voices Resp Respiratory: No shortness of breath, No sleep apnea, No cough, No COPD, No asthma, No emphysema and No wheezing Gastro Gastrointestinal: No abdominal pain, No nausea or vomiting, Yes diarrhea, No constipation, Yes blood in stool, Yes acid reflux, Yes hemorrhoids, No ulcers, No gallbladder problem and No black,tarry stools Nhan Hematologic: No blood thinners, No blood disorders, No bleeding, No anemia and No blood clots Neuro Neurologic: No system reviewed and no additional complaints, except as documented, No as per HPI, No abnormal gait, No abnormal hearing, No abnormal movements, No abnormal speech, No behavioral changes, No burning sensations, No confusion, No convulsions, No disequilibrium, No dizziness, No localized weakness, No frequent falls, No headache(s), No lack of coordination, No loss of vision, No memory loss, Yes numbness, No other visual disturbances, No radicular pain, No restless legs, No sensory deficit, No syncope, Yes tingling, No tremor(s), No weakness and No other Exam Const General: cooperative Orientation: alert and oriented x3 HENMT Head: normal to inspection Neck Neck: normal visual inspection and full ROM Chest Chest palpation & inspection: normal inspection of the chest Resp Effort & Inspection: normal respiratory effort Auscultation: clear to auscultation bilaterally Cardio Rate: regular rate Rhythm: regular rhythm GI Inspection: non-distended Palpation: soft and nontender Skin General: no rashes or lesions noted Neuro General: patient alert and patient oriented x3 Extrem General: full ROM Psych Appearance: grossly normal Mental Status: mental status grossly normal Assessment and Plan Assessment and Plan (1) Rectal bleeding: Status: Acute Plan: Patient originally came in for rectal bleeding 6 months ago for colonoscopy but the prep was inadequate. I will repeat colonoscopy now using Dulcolax on the first day and following that with a GoLytely prep the second day. I explained endoscopy in detail to the patient. I explained the risks including but not limited to stroke or heart attack with anesthesia, perforation of the GI tract, bleeding, infection. I explained that any of these could necessitate further emergency surgery. The patient understands and all questions were answered sufficiently. The patient wishes to proceed with procedure. Carlo Brambila MD Pager: [facility] [address] [place] [address], [address] [place] [address] Office: I have examined the patient and the H&P has been reviewed. There are no clinical changes since date of exam.
[2023-08-04 07:43] LABS: Bedside Glucose 81 mg/dL (74-106)
[2023-08-04 08:35] VITALS: BP 146/70; BP 84/57; PULSE 55; RESP 16; TEMP 36.4; O2SAT 92
[2023-08-04 08:41] VITALS: BP 146/70; BP 86/57; PULSE 54; RESP 16; O2SAT 94
[2023-08-04 08:45] VITALS: BP 146/70; BP 93/61; PULSE 57; RESP 16; O2SAT 93
[2023-08-04 08:51] VITALS: BP 107/64; BP 146/70; PULSE 56; RESP 16; O2SAT 93
[2023-08-04 09:03] LABS: Bedside Glucose 81 mg/dL (74-106)
[2023-08-04 09:07] VITALS: BP 146/70
--- NOTE | 2023-08-04 09:08 | OP.CCLET_ITS ---
08/04/2023 Christos Copeland Re : Colonoscopy procedure for Manpreet Ruvalcaba Dear Dr. Copeland This procedure was performed on Friday, August 04, 2023. My impressions and recommendations are as follows: Impressions : - The entire examined colon is normal on direct and retroflexion views. - Non-bleeding internal hemorrhoids. - No specimens collected. Recommendations : - Discharge patient to home. - Resume previous diet. - Continue present medications. - Await pathology results. - Repeat colonoscopy is not recommended due to current age (66 years or older) for screening purposes. My findings are described in the full procedure note, which is enclosed. If I can be of further assistance, please feel free to contact me at Doctor phone number(s): , Work: . Sincerely, Carlo Brambila MD 08/04/2023 9:07:29 AM This report has been signed electronically.
--- NOTE | 2023-08-04 09:08 | OP.COLON_ITS ---
Patient Name: Manpreet Ruvalcaba Procedure Date: 08/04/2023 8:04 AM Date of : 1945 Age: 77 Procedure: Colonoscopy Indications: Rectal bleeding Providers: Carlo Brambila MD Referring MD: Carlo Brambila MD Medicines: Propofol per Anesthesia Patient Profile: This is a 77 year old male. Refer to note in patient chart for documentation of history and physical. Last Colonoscopy: none. The patient's first colonoscopy is today. Complications: No immediate complications. Estimated blood loss: Minimal. Procedure: Pre-Anesthesia Assessment: - Prior to the procedure, a History and Physical was performed, and patient medications and allergies were reviewed. The patient's tolerance of previous anesthesia was also reviewed. The risks and benefits of the procedure and the sedation options and risks were discussed with the patient. All questions were answered, and informed consent was obtained. Prior Anticoagulants: The patient has taken no anticoagulant or antiplatelet agents. After reviewing the risks and benefits, the patient was deemed in satisfactory condition to undergo the procedure. After I obtained informed consent, the scope was passed under direct vision. Throughout the procedure, the patient's blood pressure, pulse, and oxygen saturations were monitored continuously. The pediatric colonoscope was introduced through the anus and advanced to the cecum, identified by appendiceal orifice and ileocecal valve. The colonoscopy was performed without difficulty. The patient tolerated the procedure well. The quality of the bowel preparation was good. The ileocecal valve, appendiceal orifice, and rectum were photographed. Scope In: 8:11:38 AM Scope Withdrawal Time 0 hours 9 minutes 58 seconds Scope Out: 8:29:45 AM Total Procedure Duration Time 0 hours 18 minutes 7 seconds Findings: The entire examined colon appeared normal on direct and retroflexion views. Non-bleeding internal hemorrhoids were found during retroflexion. The hemorrhoids were medium-sized and Grade II (internal hemorrhoids that prolapse but reduce spontaneously). Impression: - The entire examined colon is normal on direct and retroflexion views. - Non-bleeding internal hemorrhoids. - No specimens collected. Recommendation: - Discharge patient to home. - Resume previous diet. - Continue present medications. - Await pathology results. - Repeat colonoscopy is not recommended due to current age (66 years or older) for screening purposes. Procedure Code(s): --- Professional --- 59356, Colonoscopy, flexible; diagnostic, including collection of specimen(s) by brushing or washing, when performed (separate procedure) Diagnosis Code(s): --- Professional --- K64.1, Second degree hemorrhoids K62.5, Hemorrhage of anus and rectum CPT copyright 2021 [employer]. All rights reserved. The codes documented in this report are preliminary and upon certified professional coder review may be revised to meet current compliance requirements. Carlo Brambila MD 08/04/2023 9:07:29 AM This report has been signed electronically. Number of Addenda: 0 Note Initiated On: 08/04/2023 8:04 AM
== END 2023-08-04 09:16 | disposition home or self-care (01) ==
LOC: EN 06:19 → AC 06:20
PROVIDERS: PCP Family Medicine; Referring Provider Family Medicine; Visit Provider Surgery
PROC: 0DJD8ZZ Inspection of Lower Intestinal Tract, Via Natural or Artificial Opening Endoscopic (ICD-10-PCS; CPT 45378; principal; 2023-08-04 07:25)
DX: Z12.11 Encounter for screening for malignant neoplasm of colon (principal); E11.9 Type 2 diabetes mellitus without complications; Z79.4 Long term (current) use of insulin; K62.5 Hemorrhage of anus and rectum; I10 Essential (primary) hypertension; E78.00 Pure hypercholesterolemia, unspecified; I25.10 Atherosclerotic heart disease of native coronary artery without angina pectoris; K64.1 Second degree hemorrhoids; K21.9 Gastro-esophageal reflux disease without esophagitis; Z79.84 Long term (current) use of oral hypoglycemic drugs; Z79.82 Long term (current) use of aspirin; Z79.899 Other long term (current) drug therapy; Z86.73 Personal history of transient ischemic attack (TIA), and cerebral infarction without residual deficits; Z95.1 Presence of aortocoronary bypass graft; Z87.891 Personal history of nicotine dependence; Z80.0 Family history of malignant neoplasm of digestive organs; Z95.5 Presence of coronary angioplasty implant and graft
CPT/HCPCS: 45378; 82962; J7120; J2405

== ENCOUNTER 2023-08-26 16:40 | Emergency (ER) | payer MEDICARE, SELFPAY ==
[2023-08-26 16:43] VITALS: BP 192/78; PULSE 74; RESP 18; TEMP 36.4; O2SAT 96; BMI 30.5
--- NOTE | 2023-08-26 17:07 | CT_ITS ---
INDICATION: tia EXAMINATION: CT BRAIN WITH CONTRAST TECHNIQUE: Noncontrast axial images were obtained of the brain. Subsequently, routine carotid CT angiogram protocol was performed without and with IV contrast. In addition, images were obtained of the [place]. NASCET criteria using the distal ICAs for comparison were used for evaluation of stenoses. 3D reconstructions were reviewed. A radiation dose optimization technique was used for this scan. IV Contrast dosage and agent: 100 cc [id number] COMPARISON: Noncontrast head CT 06/29/2018 FINDINGS: --CT BRAIN: BRAIN PARENCHYMA: No intra- or extra-axial hemorrhage. No evidence of acute infarct. No intracranial mass or mass effect. There is preservation of the irizarry/white matter interface. Posterior fossa structures are unremarkable. CSF SPACES: Appropriate for age. No hydrocephalus. Basal cisterns are patent. CALVARIUM, SKULL BASE, PARANASAL SINUSES AND MASTOID AIR CELLS: Clear. No discrete lytic or blastic abnormalities. --CTA NECK: AORTIC ARCH AND BRANCHES: Vessel origins patent. RIGHT CCA: No occlusion, significant stenosis or dissection. RIGHT ICA: No occlusion, significant stenosis or dissection. LEFT CCA: No occlusion, significant stenosis or dissection. LEFT ICA: 40% stenosis at its origin, no occlusion. RIGHT VERTEBRAL ARTERY: No occlusion, significant stenosis or dissection. LEFT VERTEBRAL ARTERY: No occlusion, significant stenosis or dissection. NECK SOFT TISSUES: Unremarkable. --CTA HEAD: --Anterior circulation: ICAs: No significant stenosis at the intracranial/visualized segments. ACAs: No significant stenosis at the visualized segments. ACOM: Present. MCAs: No significant stenosis at the visualized segments. --Posterior circulation: PCOMs: Patent bilaterally. junior analyst: No significant stenosis at the visualized segments. BASILAR ARTERY: No significant stenosis. VERTEBRAL ARTERIES: No significant stenosis at the intradural/visualized segments. No evidence of intracranial aneurysm or vascular malformation. CT/CTA Head AND Neck W/ Contrast IMPRESSION: No acute intracranial findings. 40% stenosis left ICA at its origin. No significant major vessel vaso-occlusive disease in the head. Electronically Signed: Jossue Sewell MD at 19:33 EDT ,
--- NOTE | 2023-08-26 17:09 | EKG12_ITS ---
Test Reason : NEURO S/SX Blood Pressure : / mmHG Vent. Rate : 064 BPM Atrial Rate : 064 BPM P-R Int : 206 ms QRS Dur : 104 ms QT Int : 406 ms P-R-T Axes : 058 007 032 degrees QTc Int : 418 ms Normal sinus rhythm Normal ECG Confirmed by Nicanor Singh ([id number]), communications editor OSCAR RANGEL ([id number]) on 08/28/2023 9:51:49 AM Referred By: VALENTIN Confirmed By:Nicanor Singh
--- NOTE | 2023-08-26 17:10 | EDS_ITS ---
HPI History of Present Illness Chief Complaint: Neuro S/Sx Informant: patient Narrative Narrative: 77-year-old male presenting to the emergency room with a chief complaint of concern for stroke. Patient states that he woke earlier than normal because there is swelling numbish pizzas at around 0630 hrs. He tells me that he remembers sitting down and eating breakfast but does not remember finishing his cereal remembers taking the last spoonful of milk. He then states that he was chilling and began to sweat. He states that he spilled his coffee on his shoe but was having an out of body like experience. He states that he ate 2 donuts but they did not have any taste. He states that he took a nap and woke around 0900. He states he continued to feel chilled but otherwise felt back to normal. He called his daughter who called her granddaughter and they checked him out and he did not have a fever he was 98.2 his pulse ox was 98%. He worked all day and after much discussion brought him to the emergency room out of concern that he may have a stroke. He does not recall any arm or leg symptoms. He is not noticing any speech changes. He notes he has a history of TIA in 2018 as well as diabetes and coronary artery disease. He takes a baby aspirin but no other blood thinners. He denies any wounds on his body. No rhinorrhea cough vomiting diarrhea. [facility] Medical History Abnormal stress test Angina pectoris Arthritis Atherosclerotic heart disease of [place] coronary artery without angina pectoris Back pain Cardiology follow-up encounter Diabetes mellitus type II, controlled Dietary restriction Essential hypertension Former smoker Gastric reflux High cholesterol History of echocardiogram History of edema History of hiatal hernia History of pain when walking History of stress test Hx-TIA (transient ischemic attack) (03/04/18) Hyperlipidemia Hypertension Insulin dependent diabetes mellitus Left ventricular hypertrophy Leg cramps Loss of hearing Migraine headache Prostate disease Wears dentures Wears glasses Home Medications aspirin 81 mg tablet,delayed release 81 mg PO DAILY 06/06/17 [History Last Taken 07/29/23] magnesium oxide 250 mg PO DAILY 06/06/17 [History Last Taken 12/22/22] multivitamin 1 tab PO DAILY 06/06/17 [History Last Taken 12/22/22] blood sugar diagnostic (Contour Test Strips) #100 ea 01/22/20 [Rx Last Taken Unknown] pen needle, diabetic 32 gauge x 5/32 (BD Torri 2nd Gen Pen Needle) #50 ea 10/20/21 [Rx Last Taken Unknown] acetaminophen 500 mg tablet (Tylenol Extra Strength) 500 mg PO Q8H PRN pain 05/04/22 [History Last Taken 12/22/22] loratadine 10 mg tablet (Allergy Relief (loratadine)) 10 mg PO DAILY 05/04/22 [History Last Taken 12/22/22] tamsulosin 0.4 mg capsule (Flomax) 0.4 mg PO DAILY #90 caps 05/04/22 [Rx Last Taken 08/04/23] glipizide 5 mg tablet, extended release 24 hr 5 mg PO DAILY #90 tabs 08/17/22 [Rx Last Taken Unknown] valsartan 160 mg tablet 160 mg PO BID #180 tabs 11/16/22 [Rx Last Taken 08/04/23] esomeprazole magnesium 20 mg capsule,delayed release 20 mg PO DAILY PRN GERD 03/01/23 [History Last Taken 08/04/23] metformin 1,000 mg tablet 1,000 mg PO BID #180 tabs 03/01/23 [Rx Last Taken 08/01/23] simvastatin 20 mg tablet 20 mg PO QHS #90 tabs 03/01/23 [Rx Last Taken Unknown] insulin glargine U-300 conc 300 unit/mL (3 mL) subcutaneous pen 72 unit (0.24 mL) subcut QPM #24 mL 03/07/23 [Rx Last Taken Unknown] carvedilol 12.5 mg tablet 6.25 mg (1/2 x 12.5 mg) PO BID #180 tabs 03/22/23 [Rx Last Taken 08/04/23] amlodipine 5 mg tablet 5 mg PO DAILY this is a dose increase #90 tabs 06/07/23 [Rx Last Taken 08/04/23] blood sugar diagnostic (OneTouch Verio test strips) #180 ea 06/07/23 [Rx Last Ta alma Unknown] furosemide 20 mg tablet 20 mg PO DAILY PRN edema #90 tabs 06/07/23 [Rx Last Taken Unknown] SUGAR RECOVERY 1 cap PO DAILY 08/03/23 [History Last Taken Unknown] antiarthritic combination no.2 900 mg tablet (glucosamine-chondroitin) 900 mg PO BID 08/03/23 [History Last Taken Unknown] Allergy/AdvReac Type Severity Reaction Status Date / Time prednisone AdvReac Severe Severe htn Verified 08/26/23 16:42 and glucose elevation tetanus and diphtheria AdvReac Upset Verified 08/26/23 16:42 toxoids Stomach Family History Mother Hypertension Father Myocardial infarction Pancreatic cancer Brother Pancreatic cancer Colon cancer Brother Liver cancer Brother Non-Hodgkin lymphoma Other Diabetes Surgical History History of cardiac catheterization History of carpal tunnel surgery of right wrist History of coronary artery bypass surgery (~12/30/20) History of esophageal dilatation History of hernia repair History of nasal surgery Hx of colonoscopy Hx of left cataract extraction Hx of right cataract extraction Hx of toe surgery Stented coronary artery (06/28/06) Social History Smoking Status: Former smoker how long ago did patient quit smoking: Quit in 1972 alcohol intake: never substance use type: does not use caffeine: No what type of physical activity do you participate in: walking frequency: 5-6 times per week ROS ROS ED Constitutional Constitutional ED: Reports chills and sweats; Denies fever(s) or weight loss Eyes Eyes: Denies change in vision or diplopia ENT ENT ED: Denies ear pain, rhinorrhea or sore throat Cardiovascular Cardiovascular: Denies chest pain, orthopnea, palpitations or racing heartbeat Respiratory/Chest Respiratory/Chest: Denies cough, dyspnea or orthopnea Gastrointestinal Gastrointestinal: Denies abdominal pain, diarrhea, nausea or vomiting Genitourinary Genitourinary ED: Denies dysuria, hematuria or urinary frequency Musculoskeletal Musculoskeletal: Denies arthralgias or myalgias Integumentary Denies abscess or rash Neurologic Neurologic: Reports other Details: See history of present illness ; Denies headache(s) or weakness Psychiatric Psychiatric: Denies anxiety, depression, suicidal ideation or suicidal thoughts Endocrine Endocrinology: Denies polydipsia, polyphagia or polyuria Allergic/Immunologic Allergic/Immunologic ED: Denies mouth swelling, tongue swelling or urticaria EXAM Physical Exam Const Vital Signs: 08/26/23 16:43 08/26/23 18:41 08/26/23 20:00 Temperature 97.5 F L 98.1 F Temperature Source Temporal Temporal Pulse Rate 74 64 70 Respiratory Rate 18 16 18 Blood Pressure 192/78 H 153/73 H Blood Pressure Mean 116 99 Pulse Ox 96 96 97 Oxygen Delivery Method Room Air Room Air Room Air 08/26/23 20:09 Temperature 98.7 F Temperature Source Pulse Rate 75 Respiratory Rate 16 Blood Pressure 179/84 H Blood Pressure Mean 115 Pulse Ox 96 Oxygen Delivery Method Positive well nourished and well developed General Appearance ED: well developed HEENT Reports normocephalic, head/scalp atraumatic and moist mucous membranes Eyes PERRL and EOMs intact bilaterally Neck no lymphadenopathy, supple and no JVD Resp normal respiratory effort and clear to auscultation bilaterally Cardio regular rate, regular rhythm and no murmurs GI normal to inspection, nondistended, normoactive bowel sounds and non-tender Palpation: soft Back/Spine no CVA tenderness and normal ROM Extremity normal to inspection General Extremety ED: Negative for edema General Extremity: Negative for edema Neuro oriented x3 and CN's II-XII intact bilaterally Sensorium / Orientation: alert Motor Exam: strength 5/5 throughout Psych mental status grossly normal Mood & Affect: Negative for depressed or tearful Skin no rashes or lesions noted and no wounds NIHSS NIHSS Initial: 1a Level of Consciousness: 0 1b LOC Questions (Score 2 if aphasic/stupor): 0 1c LOC Commands (Only score 1st attempt): 0 2 Best Gaze (If aphasic, use reflexive mvmts.): 0 3 Visual: 0 4 Facial Palsy: 0 5 Motor Arm Right (UN = amputation/fusion): 0 5 Motor Arm Left: 0 6 Motor Leg Right: 0 6 Motor Leg Left: 0 7 Limb ataxia (Only + if out of proportion): 0 8 Sensory (Aphasia/stupor=0 or 1, coma=2): 0 9 Best Language: 0 10 Dysarthria (mute, coma=2, intubated=UN): 0 11 Extinction and Inattention (only scored if +): 0 Total Score: 0 MDM MDM MDM Narrative Medical decision making narrative: EKG shows a sinus rhythm with no ischemic changes. CT of the brain shows no acute findings. My independent interpretation of the chest x-ray is no acute process. White count 6.2 with a hemoglobin of 12.6 platelet count of 276 normal coags. BMP shows a creatinine of 1.2 glucose 282 anion gap of 8 CO2 of 24. Liver enzymes within normal limits troponin is 8 urinalysis shows no overt infection. COVID influenza and RSV swabs were negative. Patient has been noted to be hypertensive most of his readings in the 150s. Initially presenting around 192 at discharge 179. His blood pressure did not go up until I was speaking with him at discharge going over the results while he was speaking the blood pressure was taking. I do not feel that we need to intervene on this blood pressure. I am not seeing evidence of press. Neurologically he has had no symptoms since this morning and I do not feel that his symptoms were consistent with a particular stroke syndrome. He had no syncope. I am not seeing an infectious process. At this point patient be discharged home. Advised to return if return of symptoms or worsening. History & Record Review Discussion w/independent historian: Patient and Family Lab Data Attestation: I reviewed the patient's lab results. Labs: Laboratory Results - last 24 hr 08/26/23 08/26/23 08/26/23 17:15 17:31 17:55 WBC 6.2 RBC 4.13 L Hgb 12.6 L Hct 36.2 L MCV 87.7 MCH 30.5 MCHC 34.8 RDW Std Deviation 37.9 RDW Coeff of Jan 11.9 Plt Count 276 MPV 9.0 Immature Gran % (Auto) 0.200 Neut % (Auto) 58.2 Lymph % (Auto) 29.7 [place] % (Auto) 8.7 Eos % (Auto) 2.9 Baso % (Auto) 0.3 Absolute Neuts (auto) 3.6 Absolute Lymphs (auto) 1.84 Nucleated RBC % 0 PT 13.6 INR 1.0 APTT 25.4 Sodium 138 Potassium 4.1 Chloride 106 Carbon Dioxide 24.0 Anion Gap 8 BUN 15 Creatinine 1.20 Estim Creat Clear Calc 58.22 Est GFR (MDRD) Af Amer 75 Est GFR (MDRD) Non-Af 62 BUN/Creatinine Ratio 12.5 Glucose 282 H Calcium 8.8 Total Bilirubin 0.40 Direct Bilirubin 0.14 AST 21 ALT 31 Alkaline Phosphatase 27 L Troponin I High Sens 8 Total Protein 7.0 Albumin 3.6 Globulin 3.4 Urine Color Yellow Urine Clarity Clear Urine pH 6.0 Ur Specific [place] 1.010 Urine Protein Negative Urine Glucose (UA) 1000 H Urine Ketones Negative Urine Occult Blood Negative Urine Nitrite Negative Urine Bilirubin Negative Urine Urobilinogen Normal Ur Leukocyte Esterase 100 H Urine RBC 0 SEEN Urine WBC 0-5 SEEN Ur Squamous Epith Cells 0 SEEN Urine Bacteria 0 SEEN Urine Mucus 0 SEEN POC Glucose 276 H Radiography Diagnostic Testing: Clinical Impression(s) from Imaging Studies Head/Neck CTA 08/26/23 17:07 IMPRESSION: No acute intracranial findings. 40% stenosis left ICA at its origin. No significant major vessel vaso-occlusive disease in the head. Electronically Signed: Jossue Sewell MD at 19:33 EDT , Chest X-Ray 08/26/23 17:35 IMPRESSION: No radiographic evidence of acute cardiopulmonary disease. Electronically Signed: Jossue Sewell MD at 18:06 EDT , EKG Initial EKG: Attestation: I personally reviewed and interpreted this EKG as follows: Comments: Normal sinus rhythm ventricular rate of 64 bpm. Discharge Plan Triage Chief Complaint: Neuro S/Sx ED Provider: Negro Quintero Dx/Rx/DC Orders Clinical Impression: Altered mental status, Hypertension, Diabetes mellitus Instructions: ED Confusion Prescriptions: No Action (DME) Contour Test Strips Strip See Dose Instructions .ROUTE .MEDSUPPLY Qty: 100 3RF Dose Instruction: As directed Rx Instructions: twice daily (DME) pen needle, diabetic [BD Torri 2nd Gen Pen Needle] 32 gauge x 5/32 needle See Rx Instructions .Route Qty: 50 3RF Rx Instructions: As directed loratadine [Allergy Relief (loratadine)] 10 mg tablet 10 mg PO DAILY acetaminophen [Tylenol Extra Strength] 500 mg tablet 500 mg PO Q8H PRN (Reason: pain) tamsulosin [Flomax] 0.4 mg capsule 0.4 mg PO DAILY Qty: 90 4RF glipizide 5 mg tablet extended release 24hr 5 mg PO DAILY Qty: 90 1RF valsartan 160 mg tablet 160 mg PO BID Qty: 180 3RF esomeprazole magnesium 20 mg capsule,delayed release(DR/EC) 20 mg PO DAILY PRN (Reason: GERD) metformin 1,000 mg tablet 1,000 mg PO BID Qty: 180 1RF simvastatin 20 mg tablet 20 mg PO QHS Qty: 90 1RF amlodipine 5 mg tablet 5 mg PO DAILY Qty: 90 3RF (DME) OneTouch Verio test strips Strip See Rx Instructions .ROUTE .MEDSUPPLY Qty: 180 3RF Rx Instructions: check blood glucose level twice daily for type 2 DM furosemide 20 mg tablet 20 mg PO DAILY PRN (Reason: edema) Qty: 90 1RF multivitamin 1 EACH tablet 1 tab PO DAILY aspirin 81 MG tablet,delayed release (DR/EC) 81 mg PO DAILY magnesium oxide 250 MG tablet 250 mg PO DAILY SUGAR RECOVERY 1 cap PO DAILY glucosamine-chondroitin 900 mg tablet 900 mg PO BID insulin glargine U-300 conc 300 unit/mL (3 mL) insulin pen 72 unit subcut QPM Qty: 24 3RF Patient Comments: 36 UNITS BID carvedilol 12.5 mg tablet 6.25 mg PO BID Qty: 180 3RF Rx Instructions: must administer with a meal/food Primary Care Provider: Christos Copeland Referrals: Christos Copeland, DO [Primary Care Provider] - [facility] appointment Disposition Disposition: Home, Self Care Discharge Date/Time: 08/26/23 20:24
[2023-08-26 17:27] LABS: Absolute Lymphocyte Count 1.84 X10^3/uL (0.83-4.51); Absolute Neutrophil Count 3.6 X10^3/uL (2.0-7.7); Basophil# 0.02 X10^3/uL; Basophil% 0.3 % (0-1); Eosinophil# 0.18 X10^3/uL; Eosinophils% 2.9 % (0-5); Hematocrit 36.2 % (40-54); Hemoglobin 12.6 g/dL (13.0-16.5); Lymphocyte # 1.84 X10^3/ul (0.83-4.51); Lymphocyte % 29.7 % (19-41); Mean Corp Hgb Conc 34.8 g/dL (32-36); Mean Corpuscular Hgb 30.5 pg (27.0-32.0); Mean Corpuscular Volume 87.7 fL (80-94); Monocyte# 0.54 X10^3/uL; Monocyte% 8.7 % (0-10); NRBC Flagged by Analyzer 0 % (0-5); Neutrophil % 58.2 % (47-70); Platelet Count 276 K/mm3 (150-450); RBC Distribution Width CV 11.9 % (11.6-14.6); RBC Distribution Width SD 37.9 fl (35.1-43.9); Red Blood Count 4.13 M/mm3 (4.6-6.2); White Blood Count 6.2 K/mm3 (4.4-11.0)
--- NOTE | 2023-08-26 17:35 | RAD_ITS ---
INDICATION: TIA EXAMINATION/TECHNIQUE: X-RAY - portable upright AP chest x-ray COMPARISON: 11/23/2020 FINDINGS: LINES/DEVICES: None. LUNGS: No consolidation, edema or effusion. No pneumothorax. MEDIASTINUM AND CARDIOVASCULAR STRUCTURES: Cardiac silhouette within upper normal limits. Interval CABG. BONES AND SOFT TISSUES: No acute changes. RAD/Chest 1 View (Portable) IMPRESSION: No radiographic evidence of acute cardiopulmonary disease. Electronically Signed: Jossue Sewell MD at 18:06 EDT ,
[2023-08-26 17:37] LABS: Prothrombin Time (Protime)PT. 13.6 SECONDS (11.7-14.9)
[2023-08-26 17:39] LABS: Partial Thromboplast Time 25.4 Seconds (24.1-36.2)
[2023-08-26 17:49] LABS: Bedside Glucose 276 mg/dL (74-106)
[2023-08-26 17:54] LABS: AST(SGOT) 21 U/L (15-37); Alanine Aminotransfer ALT/SGPT 31 U/L (16-61); Albumin, Serum 3.6 g/dL (3.2-5.0); Alkaline Phosphatase 27 U/L (45-117); Anion Gap 8 (5-15); BUN 15 mg/dL (7-18); BUN/Creat Ratio 12.5 RATIO (10-20); Bilirubin, Direct 0.14 mg/dL (0.00-0.30); Calcium,Total 8.8 mg/dL (8.5-10.1); Chloride 106 mmol/L (98-107); EST Glomerular Filtration Rate 62 mL/min (>60); Est Glom Filt Rate - Afr Amer 75 mL/min (>60); Estimated Creatinine Clearance 58.22 ml/min; Globulin 3.4 g/dL (2.2-4.2); Glucose 282 mg/dL (74-106); Potassium 4.1 mmol/L (3.5-5.1); Sodium Level 138 mmol/L (136-145); Troponin-I HS 8 pg/mL (3.0-78.0)
[2023-08-26 18:14] LABS: Color, Urine Yellow (Yellow); Glucose, Dipstick 1000 mg/dl (Normal); Ketone-Dipstick Negative (Negative); Leukocyte Esterase-Dipstick 100 /ul (Negative); Nitrite-Dipstick Negative (Negative); Occult Blood-Urine Negative /ul (Negative); Protein-Dipstick Negative (Negative); Urine Bilirubin Dipstick Negative (Negative); Urine Clarity Clear (Clear); Urine Urobilinogen Normal (Normal)
[2023-08-26 18:15] LABS: Bacteria 0 SEEN /hpf (None Seen); Mucous, Urine 0 SEEN /hpf (<or=2+); Red Blood Cells-Urine 0 SEEN /hpf (0-5); Squamous Epithelial Cells - UA 0 SEEN /hpf (0-5); White Blood Cells 0-5 SEEN /hpf (0-5)
[2023-08-26 18:41] VITALS: BP 153/73; PULSE 64; RESP 16; O2SAT 96
[2023-08-26 20:00] VITALS: PULSE 70; RESP 18; TEMP 36.7; O2SAT 97
[2023-08-26 20:09] VITALS: BP 179/84; PULSE 75; RESP 16; TEMP 37.1; O2SAT 96
== END 2023-08-26 20:24 | disposition home or self-care (01) ==
PROVIDERS: Emergency Provider Emergency Medicine; PCP Family Medicine; Visit Provider Emergency Medicine
DX: R41.82 Altered mental status, unspecified (principal); E11.9 Type 2 diabetes mellitus without complications; I25.10 Atherosclerotic heart disease of native coronary artery without angina pectoris; I10 Essential (primary) hypertension; Z87.891 Personal history of nicotine dependence; Z86.73 Personal history of transient ischemic attack (TIA), and cerebral infarction without residual deficits; Z95.1 Presence of aortocoronary bypass graft; Z95.5 Presence of coronary angioplasty implant and graft
CPT/HCPCS: 70496; 70498; 71045; 80048; 80076; 81001; 82962; 84484; 85025; 85610; 85730; 87631; 93005; 99284; Q9967

== ENCOUNTER → 2024-03-12 | Outpatient (CLI) | payer MEDICARE, SELFPAY ==
[2024-03-12 12:27] LABS: ALB/GLOB Ratio 1.1 RATIO (0.9-2.4); AST(SGOT) 18 U/L (15-37); Alanine Aminotransfer ALT/SGPT 36 U/L (16-61); Albumin, Serum 3.9 g/dL (3.2-5.0); Alkaline Phosphatase 28 U/L (45-117); Anion Gap 4 (5-15); BUN 28 mg/dL (7-18); BUN/Creat Ratio 21.4 RATIO (10-20); Calcium,Total 9.8 mg/dL (8.5-10.1); Chloride 103 mmol/L (98-107); Cholesterol 146 mg/dL (200); Creatinine, Serum 1.31 mg/dL (0.70-1.30); EST Glomerular Filtration Rate 56 mL/min (>60); Est Glom Filt Rate - Afr Amer 68 mL/min (>60); Globulin 3.4 g/dL (2.2-4.2); Glucose 189 mg/dL (74-106); High Density Lipoprotein 31 mg/dL; Protein, Total 7.3 g/dL (6.4-8.2); Sodium Level 136 mmol/L (136-145); Triglycerides 265 mg/dL; Very Low Density Lipoprotein 53 mg/dL (5-40)
== END | disposition home or self-care (01) ==
LOC: BIMLAB 11:10
PROVIDERS: PCP Family Medicine; Referring Provider Physician Assistant Medical; Visit Provider Physician Assistant Medical
DX: E78.5 Hyperlipidemia, unspecified (principal)
CPT/HCPCS: 36415; 80053; 80061